=== PATIENT | female | born 1935 | race Asian ===

== ENCOUNTER 2017-04-22 11:22 | Observation (INO) | payer MEDICAID ==
[2017-04-22] MEDS ORDERED: Sodium Bicarbonate 8.4% 50 MEQ/50 ML Syringe IVPUSH ONE (11:36)
[2017-04-22] MEDS ORDERED: 50% Dextrose in Water 50 ML Syringe IVPUSH ONE ×2 (11:36→17:40)
[2017-04-22] MEDS ORDERED: Calcium Gluconate 10% 1 GM/10 ML SDV IVPUSH ONE (11:36)
[2017-04-22] MEDS ORDERED: Insulin Regular, Human 100 Units/ML 10 ML Vial IVPUSH ONE ×2 (11:39→17:40)
--- NOTE | 2017-04-22 11:45 | EDM.PDOC ---
ED HPI GENERAL MEDICAL PROBLEM - General Chief Complaint: Chest Pain Stated Complaint: FAST HEART RATE/HIGH BLOOD PRESSURE Time Seen by Provider: 04/22/17 11:29 - History of Present Illness INITIAL COMMENTS - FREE TEXT/NARRATIVE: HISTORY AND PHYSICAL: History of present illness: Patient is an 81-year-old female history hypertension [id number] diabetes who was sent by her primary medical doctor for potassium of 6.1 she was reportedly there for routine evaluation there is some communication issue as relates to patient speaking only Mandarin her daughter is here and her Luxembourgish is also limited we have attempted using it senior analyst with some difficulty and the patient basically being awake but nonverbal. Review of systems: As per history of present illness and below otherwise all systems reviewed and negative. Past medical history: As per history of present illness and as reviewed below otherwise noncontributory. Surgical history: As per history of present illness and as reviewed below otherwise noncontributory. Social history: No reported history of drug or alcohol abuse. Family history: As per history of present illness and as reviewed below otherwise noncontributory. Physical exam: HEENT: Atraumatic, normocephalic, pupils reactive, negative for conjunctival pallor or scleral icterus, mucous membranes moist, throat clear, neck supple, nontender, trachea midline. Lungs: Clear to auscultation, breath sounds equal bilaterally, chest nontender. Heart: S1S2, regular, negative for clicks, rubs, or JVD. Abdomen: Soft, nondistended, nontender. Negative for masses or hepatosplenomegaly. Negative for costovertebral tenderness. Pelvis: Stable nontender. Genitourinary: Deferred. Rectal: Deferred. Extremities: Atraumatic, negative for cords or calf pain. Neurovascular unremarkable. Neuro: Awake, moves all extremities extremely limited exam no gross focal findings Diagnostics: CBC CMP PT/INR UA CT brain EKG chest x-ray ammonia Therapeutics: Saline at 125 an hour 1 amp calcium gluconate 1 amp sodium bicarbonate one amp D50 and 10 units regular insulin Impression: #1 renal sufficiency #2 hyperkalemia #3 rule out altered mental status #4 history of hypertension #5 history non-insulin dependent diabetes Definitive disposition and diagnosis as appropriate pending reevaluation and review of above. - Related Data Allergies Allergy/AdvReac Type Severity Reaction Status Date / Time No Known Allergies Allergy Verified 11/14/15 23:01 Home Meds: Home Meds Famotidine 20 mg PO DAILY 11/14/15 [History] Furosemide 10 mg PO ASDIRECTED PRN 11/14/15 [History] Gabapentin [Neurontin] 300 mg PO BEDTIME 11/14/15 [History] Insulin Glargine,Hum.Rec.Anlog [Lantus Solostar] 35 unit SQ DAILY 11/14/15 [ History] Insulin Lispro [Humalog] 10 units SUBCUT TIDMEALS 11/14/15 [History] Lisinopril 10 mg PO DAILY 11/14/15 [History] SitaGLIPtin [Januvia] 50 mg PO DAILY 11/14/15 [History] amLODIPine [Norvasc] 10 mg PO DAILY 11/14/15 [History] atorvaSTATin [Lipitor] 20 mg PO BEDTIME 11/14/15 [History] Past Medical History Cardiovascular History: Reports: High Cholesterol, Hypertension Genitourinary History: Reports: Other (See Below) Other Genitourinary History: "kidney problems" 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 ED EXAM, GENERAL - Physical Exam Exam: See Below (See dictation) Course - Vital Signs Last Recorded V/S: Last Vital Signs Temp 37.4 C 04/22/17 11:38 Pulse 89 04/22/17 11:38 Resp 18 04/22/17 11:38 BP 158/68 H 04/22/17 11:38 Pulse Ox 99 04/22/17 11:38 - Orders/Labs/Meds Orders: Active Orders 24 hr Category Date Time Status Patient Status [ADT] Routine ADT 04/22/17 12:30 Active Accu Check [Blood Glucose Check, Bedside] [RC] TIDAC Care 04/22/17 12:27 Active Antiembolic Devices [RC] PER UNIT ROUTINE Care 04/22/17 12:31 Active Cardiac Monitoring [RC] . DIRECTED Care 04/22/17 12:37 Active EKG Documentation Completion [RC] STAT Care 04/22/17 11:40 Active Insert [place] Catheter [Insert Urinary Catheter] [OM.PC] Care 04/22/17 11:45 Ordered Q24H Intake and Output [RC] QSHIFT Care 04/22/17 12:30 Active Oxygen Therapy [RC] PRN Care 04/22/17 12:30 Active Up With Assistance [RC] ASDIRECTED Care 04/22/17 12:29 Active Urinary Catheter Assessment [RC] ASDIRECTED Care 04/22/17 11:41 Active VTE/DVT Education [RC] PER UNIT ROUTINE Care 04/22/17 12:30 Active Vital Signs [RC] Q4H Care 04/22/17 12:30 Active [place] [employer] Diet [DIET] Diet 04/22/17 Dinner Active Chest 1V Frontal [CR] Stat Exams 04/22/17 11:42 Ordered Head wo Cont [CT] Stat Exams 04/22/17 11:42 Ordered BASIC METABOLIC PANEL,BMP [CHEM] AM Lab 04/23/17 05:11 Ordered BASIC METABOLIC PANEL,BMP [CHEM] Routine Lab 04/22/17 16:00 Ordered UA W/MICROSCOPIC [URIN] Stat Lab 04/22/17 11:40 Uncollected Furosemide [Lasix] Med 04/22/17 12:39 Active 10 mg PO DAILY PRN Insulin Glarg,Human.Rec.Analog [LantUS Solostar] Med 04/23/17 09:00 Active 35 units SUBCUT DAILY Ondansetron [Zofran] Med 04/22/17 12:29 Active 4 mg IVPUSH Q4H PRN Sodium Chloride 0.9% [Normal Saline] 1,000 ml Med 04/22/17 11:51 Active IV STAT amLODIPine Med 04/23/17 09:00 Active 10 mg PO DAILY atorvaSTATin [Lipitor] Med 04/22/17 21:00 Active 20 mg PO BEDTIME Sequential Compression Device [OM.PC] Per Unit Routine Oth 04/22/17 12:30 Ordered Medication Orders Atorvastatin Calcium (Lipitor) 20 mg PO BEDTIME ZION Furosemide (Lasix) 10 mg PO DAILY PRN PRN Reason: Edema Sodium Chloride (Normal Saline) 1,000 mls @ 125 mls/hr IV STAT ONE Stop: 04/22/17 19:50 Last Admin: 04/22/17 11:52 Dose: 125 mls/hr Insulin Glargine (Lantus Solostar) 35 units SUBCUT DAILY ZION Non-Formulary Medication (Amlodipine) 10 mg PO DAILY ZION Ondansetron HCl (Zofran) 4 mg IVPUSH Q4H PRN PRN Reason: Nausea Labs: Laboratory Tests 04/22/17 04/22/17 04/22/17 Range/Units 11:42 11:42 11:42 WBC 8.13 (4.0-11.0) K/uL RBC 3.21 L (4.30-5.90) M/uL Hgb 10.4 L (12.0-16.0) g/dL Hct 31.1 L (36.0-46.0) % MCV 96.9 (80.0-98.0) fL MCH 32.4 H (27.0-32.0) pg MCHC 33.4 (31.0-37.0) g/dL RDW Std Deviation 45.8 (28.0-62.0) fl RDW Coeff of Dipti 13 (11.0-15.0) % Plt Count 185 (150-400) K/uL MPV 9.60 (7.40-12.00) fL Neut % (Auto) 68.4 (48.0-80.0) % Lymph % (Auto) 21.4 (16.0-40.0) % [place] % (Auto) 7.6 (0.0-15.0) % Eos % (Auto) 2.1 (0.0-7.0) % Baso % (Auto) 0.5 (0.0-1.5) % Neut # (Auto) 5.6 (1.4-5.7) K/uL Lymph # (Auto) 1.7 (0.6-2.4) K/uL [place] # (Auto) 0.6 (0.0-0.8) K/uL Eos # (Auto) 0.2 (0.0-0.7) K/uL Baso # (Auto) 0.0 (0.0-0.1) K/uL Nucleated RBC % 0.0 /100WBC Nucleated RBCs # 0 K/uL INR 0.98 Sodium 137 (136-146) mmol/L Potassium 5.6 H (3.5-5.1) mmol/L Chloride 110 (98-110) mmol/L Carbon Dioxide 17 L (21-31) mmol/L BUN 49 H (6.0-23.0) mg/dL Creatinine 2.0 H (0.6-1.5) mg/dL Est Cr Clr Drug Dosing TNP Estimated GFR (MDRD) 23.9 ml/min Glucose 42 L (60-110) mg/dL POC Glucose (60-110) mg/dL Calcium 9.2 (8.8-10.8) mg/dL Total Bilirubin 0.2 (0.1-1.5) mg/dL AST 16 (5-40) IU/L ALT 14 (8-54) IU/L Alkaline Phosphatase 81 (40-150) Ammonia (14-68) UG/DL Total Protein 7.1 (6.0-8.0) g/dL Albumin 4.0 (3.4-4.8) g/dL Globulin 3.1 (2.0-3.5) g/dL Albumin/Globulin Ratio 1.3 (1.3-2.8) TSH 3rd Generation 0.92 (0.47-5.0) uIU/mL Prolactin 12 (0-27) ng/mL 04/22/17 04/22/17 Range/Units 11:42 12:11 WBC (4.0-11.0) K/uL RBC (4.30-5.90) M/uL Hgb (12.0-16.0) g/dL Hct (36.0-46.0) % MCV (80.0-98.0) fL MCH (27.0-32.0) pg MCHC (31.0-37.0) g/dL RDW Std Deviation (28.0-62.0) fl RDW Coeff of Dipti (11.0-15.0) % Plt Count (150-400) K/uL MPV (7.40-12.00) fL Neut % (Auto) (48.0-80.0) % Lymph % (Auto) (16.0-40.0) % [place] % (Auto) (0.0-15.0) % Eos % (Auto) (0.0-7.0) % Baso % (Auto) (0.0-1.5) % Neut # (Auto) (1.4-5.7) K/uL Lymph # (Auto) (0.6-2.4) K/uL [place] # (Auto) (0.0-0.8) K/uL Eos # (Auto) (0.0-0.7) K/uL Baso # (Auto) (0.0-0.1) K/uL Nucleated RBC % /100WBC Nucleated RBCs # K/uL INR Sodium (136-146) mmol/L Potassium (3.5-5.1) mmol/L Chloride (98-110) mmol/L Carbon Dioxide (21-31) mmol/L BUN (6.0-23.0) mg/dL Creatinine (0.6-1.5) mg/dL Est Cr Clr Drug Dosing Estimated GFR (MDRD) ml/min Glucose (60-110) mg/dL POC Glucose 212 H (60-110) mg/dL Calcium (8.8-10.8) mg/dL Total Bilirubin (0.1-1.5) mg/dL AST (5-40) IU/L ALT (8-54) IU/L Alkaline Phosphatase (40-150) Ammonia 50 (14-68) UG/DL Total Protein (6.0-8.0) g/dL Albumin (3.4-4.8) g/dL Globulin (2.0-3.5) g/dL Albumin/Globulin Ratio (1.3-2.8) TSH 3rd Generation (0.47-5.0) uIU/mL Prolactin (0-27) ng/mL Meds: Medications Generic Name Dose Route Start Last Admin Trade Name Freq PRN Reason Stop Dose Admin Atorvastatin Calcium 20 mg 04/22/17 21:00 Lipitor PO BEDTIME ZION Furosemide 10 mg 04/22/17 12:39 Lasix PO DAILY PRN Edema Sodium Chloride 1,000 mls @ 125 mls/hr 04/22/17 11:51 04/22/17 11:52 Normal Saline IV 04/22/17 19:50 125 mls/hr STAT ONE Administration Insulin Glargine 35 units 04/23/17 09:00 Lantus Solostar SUBCUT DAILY ZION Non-Formulary Medication 10 mg 04/23/17 09:00 Amlodipine PO DAILY ZION Ondansetron HCl 4 mg 04/22/17 12:29 Zofran IVPUSH Q4H PRN Nausea Discontinued Medications Generic Name Dose Route Start Last Admin Trade Name Freq PRN Reason Stop Dose Admin Calcium Gluconate 1 gm 04/22/17 11:36 04/22/17 11:53 Calcium Gluconate IVPUSH 04/22/17 11:37 1 gm ONETIME ONE Administration Dextrose/Water 50 ml 04/22/17 11:36 04/22/17 12:00 Dextrose 50% In Water IVPUSH 04/22/17 11:37 50 ml ONETIME ONE Administration Furosemide 10 mg 04/22/17 12:26 Lasix PO ASDIRECTED PRN Edema Insulin Human Regular 10 unit 04/22/17 11:39 04/22/17 12:09 Novolin R IVPUSH 04/22/17 11:40 10 unit ONETIME ONE Administration Protocol Sodium Bicarbonate 50 meq 04/22/17 11:36 04/22/17 12:05 Sodium Bicarbonate 8.4% IVPUSH 04/22/17 11:37 50 meq ONETIME ONE Administration Departure - Departure Time of Disposition: 12:55 Disposition: Refer to Observation Condition: Good Clinical Impression: Hyperkalemia, Renal insufficiency - Discharge Information Referrals: Elizabeth Soto DO [Primary Care Provider] - Forms: ED Department Discharge - My Orders Last 24 Hours: My Active Orders 04/22/17 11:40 EKG Documentation Completion [RC] STAT UA W/MICROSCOPIC [URIN] Stat 04/22/17 11:41 Urinary Catheter Assessment [RC] ASDIRECTED 04/22/17 11:42 Chest 1V Frontal [CR] Stat Head wo Cont [CT] Stat 04/22/17 11:45 Insert Palacios Catheter [Insert Urinary Catheter] [OM.PC] Q24H 04/22/17 11:51 Sodium Chloride 0.9% [Normal Saline] 1,000 ml IV STAT - Assessment/Plan Last 24 Hours: My Active Orders 04/22/17 11:40 EKG Documentation Completion [RC] STAT UA W/MICROSCOPIC [URIN] Stat 04/22/17 11:41 Urinary Catheter Assessment [RC] ASDIRECTED 04/22/17 11:42 Chest 1V Frontal [CR] Stat Head wo Cont [CT] Stat 04/22/17 11:45 Insert [place] Catheter [Insert Urinary Catheter] [OM.PC] Q24H 04/22/17 11:51 Sodium Chloride 0.9% [Normal Saline] 1,000 ml IV STAT
[2017-04-22] MEDS ORDERED: Sodium Chloride 0.9% 1,000 ML IV ONE (11:51)
[2017-04-22 12:14] LABS: CHLORIDE,CL 110 mmol/L (98-110); SODIUM,NA 137 mmol/L (136-146)
[2017-04-22] MEDS ORDERED: Furosemide 20 MG Tab PO PRN ×2 (12:26→12:39)
[2017-04-22] MEDS ORDERED: Ondansetron 4 MG/2 ML SDV IVPUSH PRN (12:29)
--- NOTE | 2017-04-22 12:38 | PCM.HP ---
H&P History of Present Illness - General Admit Problem/Dx: Admission Diagnosis/Problem Admission Diagnosis/Problem Hyperkalemia - History of Present Illness Initial Comments - Free Text/Narative: 81 yo female with pmh of diabetes, HTN, and chronic kidney disease who presents from Dr. [facility] to the ED due to a potassium of 6.0. She only speaks Mandarin. Through the rehabilitation team lead she has no complaint's she denies any shortness of breath, dysuria, chest pain, diarrhea, fevers, or pain. She reports she is making urine. Repeat potassium in the ED reported a potasium of 5.6 She received an amp of D50 and 10 units of IV insulin in the ED. She is in aggreement for observing overnight. - Related Data Allergies/Adverse Reactions: Allergies Allergy/AdvReac Type Severity Reaction Status Date / Time No Known Allergies Allergy Verified 11/14/15 23:01 Home Medications: Home Meds Famotidine 20 mg PO DAILY 11/14/15 [History] Furosemide 10 mg PO ASDIRECTED PRN 11/14/15 [History] Gabapentin [Neurontin] 300 mg PO BEDTIME 11/14/15 [History] Insulin Glargine,Hum.Rec.Anlog [Lantus Solostar] 32 unit SQ DAILY 11/14/15 [ History] Insulin Lispro [Humalog] 10 units SUBCUT TIDMEALS 11/14/15 [History] Lisinopril 10 mg PO DAILY 11/14/15 [History] SitaGLIPtin [Januvia] 50 mg PO DAILY 11/14/15 [History] amLODIPine [Norvasc] 10 mg PO DAILY 11/14/15 [History] atorvaSTATin [Lipitor] 20 mg PO BEDTIME 11/14/15 [History] Past Medical History HEENT History: Reports: Other (See Below) Other HEENT History: unable to obtain Cardiovascular History: Reports: High Cholesterol, Hypertension Respiratory History: Reports: Other (See Below) Other Respiratory History: unable to obtain Gastrointestinal History: Reports: Other (See Below) Other Gastrointestinal History: unable to obtain Genitourinary History: Reports: Other (See Below) Other Genitourinary History: "kidney problems" 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: Musculoskeletal History: Reports: Other (See Below) Other Musculoskeletal History: unable to obtain Neurological History: Reports: Other (See Below) Other Neuro History: unable to obtain Psychiatric History: Reports: Other (See Below) Other Psychiatric History: unable to obtain Endocrine/Metabolic History: Reports: Other (See Below) Other Endocrine/Metabolic History: diabets, unsure what type Hematologic History: Reports: Other (See Below) Other Hematologic History: unable to obtain Immunologic History: Reports: Other (See Below) Other Immunologic History: unable to obtain Oncologic (Cancer) History: Reports: Other (See Below) Other Oncologic History: unable to obtain Dermatologic History: Reports: Other (See Below) Other Dermatologic History: unable to obtain - Infectious Disease History Infectious Disease History: Reports: Other (See Below) Other Infectious Disease History: unable to obtain - Past Surgical History Head Surgeries/Procedures: Reports: Other (See Below) HEENT Surgical History: Reports: Other (See Below) Other HEENT Surgeries/Procedures: unable to obtain Cardiovascular Surgical History: Reports: Other (See Below) Other Cardiovascular Surgeries/Procedures: unable to obtain Respiratory Surgical History: Reports: Other (See Below) Other Respiratory Surgeries/Procedures: unable to obtain GI Surgical History: Reports: Other (See Below) Other GI Surgeries/Procedures: unable to obtain Female Surgical History: Reports: Other (See Below) Other Female Surgeries/Procedures: unable to obtain Neurological Surgical History: Reports: Other (See Below) Other Neurological Surgeries/Procedures: unable to obtain Musculoskeletal Surgical History: Reports: Other (See Below) Other Musculoskeletal Surgeries/Procedures:: unable to obtain Oncologic Surgical History: Reports: Other (See Below) Other Oncologic Surgeries/Procedures: unable to obtain Dermatological Surgical History: Reports: Other (See Below) Social & Family History - Family History Family Medical History: Unobtainable - Tobacco Use Smoking Status *Q: Never Smoker - Caffeine Use Caffeine Use Comment: unable to obtain - Recreational Drug Use Recreational Drug Use: No Other Recreational Drug Type: unable to obtain H&P Review of Systems - Review of Systems: Review Of Systems: ROS reveals no pertinent complaints other than HPI. Exam - Exam Exam: See Below - Vital Signs Vital Signs: Last Vital Signs Temp 37.4 C 04/22/17 11:38 Pulse 89 04/22/17 11:38 Resp 18 04/22/17 11:38 BP 158/68 H 04/22/17 11:38 Pulse Ox 99 04/22/17 11:38 Weight: 68.3 kg - Exam General: Cooperative. No: Mild Distress HEENT: Mucosa Moist & [place] Neck: Supple Lungs: Clear to Auscultation, Normal Respiratory Effort Cardiovascular: Regular Rate, Regular Rhythm GI/Abdominal Exam: Soft, Non-Tender Extremities: No: No Pedal Edema Skin: Warm, Dry, Intact - Patient Data Lab Results Last 24 hrs: Laboratory Results - last 24 hr 04/22/17 04/22/17 04/22/17 Range/Units 11:42 11:42 11:42 WBC 8.13 (4.0-11.0) K/uL RBC 3.21 L (4.30-5.90) M/uL Hgb 10.4 L (12.0-16.0) g/dL Hct 31.1 L (36.0-46.0) % MCV 96.9 (80.0-98.0) fL MCH 32.4 H (27.0-32.0) pg MCHC 33.4 (31.0-37.0) g/dL RDW Std Deviation 45.8 (28.0-62.0) fl RDW Coeff of Dipti 13 (11.0-15.0) % Plt Count 185 (150-400) K/uL MPV 9.60 (7.40-12.00) fL Neut % (Auto) 68.4 (48.0-80.0) % Lymph % (Auto) 21.4 (16.0-40.0) % [place] % (Auto) 7.6 (0.0-15.0) % Eos % (Auto) 2.1 (0.0-7.0) % Baso % (Auto) 0.5 (0.0-1.5) % Neut # (Auto) 5.6 (1.4-5.7) K/uL Lymph # (Auto) 1.7 (0.6-2.4) K/uL [place] # (Auto) 0.6 (0.0-0.8) K/uL Eos # (Auto) 0.2 (0.0-0.7) K/uL Baso # (Auto) 0.0 (0.0-0.1) K/uL Nucleated RBC % 0.0 /100WBC Nucleated RBCs # 0 K/uL INR 0.98 Sodium 137 (136-146) mmol/L Potassium 5.6 H (3.5-5.1) mmol/L Chloride 110 (98-110) mmol/L Carbon Dioxide 17 L (21-31) mmol/L BUN 49 H (6.0-23.0) mg/dL Creatinine 2.0 H (0.6-1.5) mg/dL Est Cr Clr Drug Dosing TNP Estimated GFR (MDRD) 23.9 ml/min Glucose 42 L (60-110) mg/dL POC Glucose (60-110) mg/dL Calcium 9.2 (8.8-10.8) mg/dL Total Bilirubin 0.2 (0.1-1.5) mg/dL AST 16 (5-40) IU/L ALT 14 (8-54) IU/L Alkaline Phosphatase 81 (40-150) Ammonia (14-68) UG/DL Total Protein 7.1 (6.0-8.0) g/dL Albumin 4.0 (3.4-4.8) g/dL Globulin 3.1 (2.0-3.5) g/dL Albumin/Globulin Ratio 1.3 (1.3-2.8) 04/22/17 04/22/17 Range/Units 11:42 12:11 WBC (4.0-11.0) K/uL RBC (4.30-5.90) M/uL Hgb (12.0-16.0) g/dL Hct (36.0-46.0) % MCV (80.0-98.0) fL MCH (27.0-32.0) pg MCHC (31.0-37.0) g/dL RDW Std Deviation (28.0-62.0) fl RDW Coeff of Dipti (11.0-15.0) % Plt Count (150-400) K/uL MPV (7.40-12.00) fL Neut % (Auto) (48.0-80.0) % Lymph % (Auto) (16.0-40.0) % [place] % (Auto) (0.0-15.0) % Eos % (Auto) (0.0-7.0) % Baso % (Auto) (0.0-1.5) % Neut # (Auto) (1.4-5.7) K/uL Lymph # (Auto) (0.6-2.4) K/uL [place] # (Auto) (0.0-0.8) K/uL Eos # (Auto) (0.0-0.7) K/uL Baso # (Auto) (0.0-0.1) K/uL Nucleated RBC % /100WBC Nucleated RBCs # K/uL INR Sodium (136-146) mmol/L Potassium (3.5-5.1) mmol/L Chloride (98-110) mmol/L Carbon Dioxide (21-31) mmol/L BUN (6.0-23.0) mg/dL Creatinine (0.6-1.5) mg/dL Est Cr Clr Drug Dosing Estimated GFR (MDRD) ml/min Glucose (60-110) mg/dL POC Glucose 212 H (60-110) mg/dL Calcium (8.8-10.8) mg/dL Total Bilirubin (0.1-1.5) mg/dL AST (5-40) IU/L ALT (8-54) IU/L Alkaline Phosphatase (40-150) Ammonia 50 (14-68) UG/DL Total Protein (6.0-8.0) g/dL Albumin (3.4-4.8) g/dL Globulin (2.0-3.5) g/dL Albumin/Globulin Ratio (1.3-2.8) Result Diagrams: 04/22/17 11:42 04/22/17 16:27 *Q Meaningful Use (ADM) - VTE *Q VTE Criteria *Q: - Stroke *Q Stroke Criteria *Q: - AMI *Q AMI Criteria *Q: Problem List Initiated/Reviewed/Updated: Yes Orders Last 24hrs: Active Orders 24 hr Category Date Time Status Patient Status [ADT] Routine ADT 04/22/17 12:30 Ordered Accu Check [Blood Glucose Check, Bedside] [RC] TIDAC Care 04/22/17 12:27 Ordered Antiembolic Devices [RC] PER UNIT ROUTINE Care 04/22/17 12:31 Ordered EKG Documentation Completion [RC] STAT Care 04/22/17 11:40 Active Insert [place] Catheter [Insert Urinary Catheter] [OM.PC] Care 04/22/17 11:45 Ordered Q24H Intake and Output [RC] QSHIFT Care 04/22/17 12:30 Ordered Oxygen Therapy [RC] PRN Care 04/22/17 12:30 Ordered Up With Assistance [RC] ASDIRECTED Care 04/22/17 12:29 Ordered Urinary Catheter Assessment [RC] ASDIRECTED Care 04/22/17 11:41 Active VTE/DVT Education [RC] PER UNIT ROUTINE Care 04/22/17 12:30 Ordered Vital Signs [RC] Q4H Care 04/22/17 12:30 Ordered [place] [employer]abetic [employer] Diet [DIET] Diet 04/22/17 Dinner Ordered Chest 1V Frontal [CR] Stat Exams 04/22/17 11:42 Ordered Head wo Cont [CT] Stat Exams 04/22/17 11:42 Ordered BASIC METABOLIC PANEL,BMP [CHEM] AM Lab 04/23/17 05:11 Ordered BASIC METABOLIC PANEL,BMP [CHEM] Routine Lab 04/22/17 16:00 Ordered COMPREHENSIVE METABOLIC PN,CMP [CHEM] Stat Lab 04/22/17 11:42 Results PROLACTIN [CHEM] Stat Lab 04/22/17 11:42 Results TSH [CHEM] Stat Lab 04/22/17 11:42 Results UA W/MICROSCOPIC [URIN] Stat Lab 04/22/17 11:40 Uncollected Furosemide [Lasix] Med 04/22/17 12:26 Ordered 10 mg PO ASDIRECTED PRN Insulin Glarg,Human.Rec.Analog [LantUS Solostar] Med 04/23/17 09:00 Ordered 35 units SUBCUT DAILY Ondansetron [Zofran] Med 04/22/17 12:29 Ordered 4 mg IVPUSH Q4H PRN Sodium Chloride 0.9% [Normal Saline] 1,000 ml Med 04/22/17 11:51 Active IV STAT amLODIPine Med 04/23/17 09:00 Ordered 10 mg PO DAILY atorvaSTATin [Lipitor] Med 04/22/17 21:00 Ordered 20 mg PO BEDTIME Sequential Compression Device [OM.PC] Per Unit Routine Oth 04/22/17 12:30 Ordered Medication Orders Atorvastatin Calcium (Lipitor) 20 mg PO BEDTIME ZION Furosemide (Lasix) 10 mg PO ASDIRECTED PRN PRN Reason: Edema Sodium Chloride (Normal Saline) 1,000 mls @ 125 mls/hr IV STAT ONE Stop: 04/22/17 19:50 Last Admin: 04/22/17 11:52 Dose: 125 mls/hr Insulin Glargine (Lantus Solostar) 35 units SUBCUT DAILY ZION Non-Formulary Medication (Amlodipine) 10 mg PO DAILY ZION Ondansetron HCl (Zofran) 4 mg IVPUSH Q4H PRN PRN Reason: Nausea Assessment/Plan Comment:: 81 yo female with pmh of CKD, DM, and HTN who presents with hyperkalemia. She was treated in the ED with insulin. We will monitor overnight and repeat BMP this afternoon. We will hold her lisinopril. Creatinine appears stable at 2.0 with prior creatinine measurement last october at 2.4.
--- NOTE | 2017-04-22 13:27 | CR ---
EXAMINATION: Portable chest radiograph. HISTORY: Shortness of breath. COMPARISON: 08/07/2012 FINDINGS: The trachea is midline. The cardiomediastinal silhouette is within normal limits. No pulmonary infilt rates, effusions or pneumothorax. Mild chronic interstitial prominence. Degenerative changes noted within the shoulders. IMPRESSION: Chronic interstitial prominence without an acute cardiopulmonary finding.
--- NOTE | 2017-04-22 13:37 | CT ---
EXAMINATION: Non contrast CT head. Coronal and sagittal reformats. HISTORY: Pain FINDINGS: No evidence of intra or extra axial hemorrhage, mass, midline shift, hydrocephalus or edema. Mild ge neralized atrophy and periventricular white matter hypodensities noted. No hypoattenuation changes in the major vascular territories to suggest acute infarct. No abnormal intracranial calcifications are detected. No evidence of substantial vascular calcificat ions. Paranasal sinuses and mastoid air cells are well aerated without substantial findings. The right orbi t has an oval shape, unchanged. The pituitary fossa appears unremarkable. Calvarium is intact. No evidence of skull fracture. IMPRESSION: 1. No acute intracranial findings. 2. Mild generalized atrophy and small vessel ischemic changes.
[2017-04-22 17:03] LABS: CHLORIDE,CL 113 mmol/L (98-110); SODIUM,NA 137 mmol/L (136-146)
[2017-04-22] MEDS ORDERED: atorvaSTATin 20 MG Tab PO SCH (21:00)
[2017-04-22] MEDS: Sodium Chloride 0.9% 1,000 ML IV SCH (21:20)
[2017-04-23] MEDS: Sodium Chloride 0.9% 1,000 ML IV SCH (04:55)
[2017-04-23] MEDS ORDERED: Insulin Glargine,Human Rec. Analog 100 Units/ML 3 ML Pen SUBCUT SCH (09:00)
[2017-04-23] MEDS ORDERED: amLODIPine 5 MG Tab PO SCH (09:00)
[2017-04-23 13:50] VITALS: BP 121/72
--- NOTE | 2017-04-23 16:11 | PCM.DCSUM1 ---
Discharge Summary - Hospital Course Free Text/Narrative:: Admission date: April 22, 2017 Discharge date April 23, 2017 Admission diagnosis: #1. Hyperkalemia #2. History of hypertension, CKD, type 2 diabetes mellitus #3. Altered mental status Discharge diagnosis: #1. Hyperkalemia resolved #2. History of hypertension, CKD, T2 DM Hospital course: This is a 81-year-old female that was sent over from outpatient clinic after found to have a incidental level of potassium apparently as high as 6. Recheck in the emergency department showed a level of 5.6. Patient is asymptomatic. She was admitted for observation, given fluid and her lisinopril was discontinued. Recheck prior to discharge indicated a potassium level of 4.8. Patient remained asymptomatic throughout her stay. There were concerns for altered mental status in the emergency department which was likely secondary to her inability to speak Kosovan. However, CT scan of her head was obtained and that was unremarkable. She is able to compensate with the curb worker was used in the hospital. With the conversation that she is having at the curb worker, it does appear that her mental status is preserved. It would be helpful in the future though if we could get a full conversation with family as well. There is a possibility that the potassium level may have been secondary to the sample being hemolyzed. However, given her history of chronic kidney disease, a close eye on her kidney function along with potassium levels is indicated. She should follow up with her primary care provider within one week. - Discharge Data Discharge Date: 04/23/17 Discharge Disposition: Home, Self-Care 01 Condition: Fair - Patient Instructions Diet: Diabetic Diet Activity: As Tolerated Notify Provider of: Fever, Increased Pain, Swelling and Redness, Drainage, Nausea and/or Vomiting - Discharge Plan Home Medications: Home Meds Famotidine 20 mg PO DAILY 11/14/15 [History] Furosemide 10 mg PO ASDIRECTED PRN 11/14/15 [History] Gabapentin [Neurontin] 300 mg PO BEDTIME 11/14/15 [History] Insulin Glargine,Hum.Rec.Anlog [Lantus Solostar] 32 unit SQ DAILY 11/14/15 [ History] Insulin Lispro [Humalog] 10 units SUBCUT TIDMEALS 11/14/15 [History] SitaGLIPtin [Januvia] 50 mg PO DAILY 11/14/15 [History] amLODIPine [Norvasc] 10 mg PO DAILY 11/14/15 [History] atorvaSTATin [Lipitor] 20 mg PO BEDTIME 11/14/15 [History] Patient Handouts: Hyperkalemia, [id number] Referrals: Elizabeth Soto DO [Primary Care Provider] - 04/30/17 12:30 pm - Discharge Summary/Plan Comment Discharge Summary/Plan Comment: Admission date: April 22, 2017 Discharge date April 23, 2017 Admission diagnosis: #1. Hyperkalemia #2. History of hypertension, CKD, type 2 diabetes mellitus #3. Altered mental status Discharge diagnosis: #1. Hyperkalemia resolved #2. History of hypertension, CKD, T2 DM Hospital course: This is a 81-year-old female that was sent over from outpatient clinic after found to have a incidental level of potassium apparently as high as 6. Recheck in the emergency department showed a level of 5.6. Patient is asymptomatic. She was admitted for observation, given fluid and her lisinopril was discontinued. Recheck prior to discharge indicated a potassium level of 4.8. Patient remained asymptomatic throughout her stay. There were concerns for altered mental status in the emergency department which was likely secondary to her inability to speak Kosovan. However, CT scan of her head was obtained and that was unremarkable. She is able to compensate with the curb worker was used in the hospital. With the conversation that she is having at the curb worker, it does appear that her mental status is preserved. It would be helpful in the future though if we could get a full conversation with family as well. There is a possibility that the potassium level may have been secondary to the sample being hemolyzed. However, given her history of chronic kidney disease, a close eye on her kidney function along with potassium levels is indicated. She should follow up with her primary care provider within one week. Lisinopril is discontinued. - Patient Data Vitals - Most Recent: Last Vital Signs Temp 36.7 C 04/23/17 12:00 Pulse 99 04/23/17 12:00 Resp 20 04/23/17 12:00 BP 121/72 04/23/17 12:00 Pulse Ox 97 04/23/17 12:00 Weight - Most Recent: 68.3 kg I&O - Last 24 hours: Intake & Output 04/23/17 04/23/1718 06:59 14:59 22:59 Intake Total 1275 769 Output Total 1100 Balance 175 769 Lab Results - Last 24 hrs: Laboratory Results - last 24 hr 04/22/17 04/22/17 04/22/17 Range/Units 16:27 17:06 18:45 Sodium 137 (136-146) mmol/L Potassium 5.8 H (3.5-5.1) mmol/L Chloride 113 H (98-110) mmol/L Carbon Dioxide 15 L (21-31) mmol/L BUN 45 H (6.0-23.0) mg/dL Creatinine 1.9 H (0.6-1.5) mg/dL Est Cr Clr Drug Dosing TNP Estimated GFR (MDRD) 25.3 ml/min Glucose 167 H (60-110) mg/dL POC Glucose 188 H 367 H (60-110) mg/dL Calcium 8.8 (8.8-10.8) mg/dL 04/22/17 04/23/17 04/23/17 Range/Units 21:12 04:48 11:43 Sodium 140 142 (136-146) mmol/L Potassium 5.2 H 5.0 4.8 (3.5-5.1) mmol/L Chloride 113 H 116 H (98-110) mmol/L Carbon Dioxide 18 L 20 L (21-31) mmol/L BUN 45 H 38 H (6.0-23.0) mg/dL Creatinine 2.0 H 1.7 H (0.6-1.5) mg/dL Est Cr Clr Drug Dosing 18.86 22.19 Estimated GFR (MDRD) 23.9 28.8 ml/min Glucose 326 H 178 H (60-110) mg/dL POC Glucose (60-110) mg/dL Calcium 8.5 L 8.5 L (8.8-10.8) mg/dL 04/23/17 Range/Units 12:33 Sodium (136-146) mmol/L Potassium (3.5-5.1) mmol/L Chloride (98-110) mmol/L Carbon Dioxide (21-31) mmol/L BUN (6.0-23.0) mg/dL Creatinine (0.6-1.5) mg/dL Est Cr Clr Drug Dosing Estimated GFR (MDRD) ml/min Glucose (60-110) mg/dL POC Glucose 303 H (60-110) mg/dL Calcium (8.8-10.8) mg/dL Med Orders - Current: Current Medications Amlodipine Besylate (Norvasc) 10 mg PO DAILY [facility] Last Admin: 04/23/17 08:34 Dose: 10 mg Atorvastatin Calcium (Lipitor) 20 mg PO BEDTIME [facility] Last Admin: 04/22/17 20:27 Dose: 20 mg Furosemide (Lasix) 10 mg PO DAILY PRN PRN Reason: Edema Insulin Glargine (Lantus Solostar) 35 units SUBCUT DAILY [facility] Last Admin: 04/23/17 08:40 Dose: 35 units Ondansetron HCl (Zofran) 4 mg IVPUSH Q4H PRN PRN Reason: Nausea Discontinued Medications Calcium Gluconate (Calcium Gluconate) 1 gm IVPUSH ONETIME ONE Stop: 04/22/17 11:37 Last Admin: 04/22/17 11:53 Dose: 1 gm Dextrose/Water (Dextrose 50% In Water) 50 ml IVPUSH ONETIME ONE Stop: 04/22/17 11:37 Last Admin: 04/22/17 12:00 Dose: 50 ml Dextrose/Water (Dextrose 50% In Water) 50 ml IVPUSH ONETIME ONE Stop: 04/22/17 17:41 Last Admin: 04/22/17 18:11 Dose: 50 ml Furosemide (Lasix) 10 mg PO ASDIRECTED PRN PRN Reason: Edema Sodium Chloride (Normal Saline) 1,000 mls @ 125 mls/hr IV STAT ONE Stop: 04/22/17 19:50 Last Admin: 04/22/17 11:52 Dose: 125 mls/hr Sodium Chloride (Normal Saline) 1,000 mls @ 125 mls/hr IV ASDIRECTED [facility] Last Admin: 04/23/17 04:55 Dose: 125 mls/hr Insulin Human Regular (Novolin R) 10 unit IVPUSH ONETIME ONE PRN Reason: Protocol Stop: 04/22/17 11:40 Last Admin: 04/22/17 12:09 Dose: 10 unit Insulin Human Regular (Novolin R) 10 unit IVPUSH ONETIME ONE PRN Reason: Protocol Stop: 04/22/17 17:41 Last Admin: 04/22/17 18:11 Dose: 10 units Sodium Bicarbonate (Sodium Bicarbonate 8.4%) 50 meq IVPUSH ONETIME ONE Stop: 04/22/17 11:37 Last Admin: 04/22/17 12:05 Dose: 50 meq *Q Meaningful Use (DIS) - VTE *Q VTE Criteria *Q: - Stroke *Q Stroke Criteria *Q: - AMI *Q AMI Criteria *Q:
== END 2017-04-23 16:05 | disposition home or self-care (01) ==
LOC: MW.ED 11:22 → MW.MS 13:02
PROVIDERS: ADMIT Internal Medicine; ATTEND Internal Medicine
DX: E87.5 Hyperkalemia (principal); I12.9 Hypertensive chronic kidney disease with stage 1 through stage 4 chronic kidney disease, or unspecified chronic kidney disease; N18.9 Chronic kidney disease, unspecified; E11.22 Type 2 diabetes mellitus with diabetic chronic kidney disease; R41.82 Altered mental status, unspecified; E78.00 Pure hypercholesterolemia, unspecified; Z79.899 Other long term (current) drug therapy; Z79.4 Long term (current) use of insulin
CPT/HCPCS: 36415; 70450; 71045; 80048; 80053; 81001; 82140; 82962; 84132; 84146; 84443; 85025; 85610; 93005; 96361; 96374; 96375; 99285; A9270; J0610; J1815; J7040; J7060

== ENCOUNTER 2018-05-11 14:28 | Inpatient (IN) | payer MEDICAID ==
[2018-05-11] MEDS ORDERED: Sodium Chloride 0.9% 2.5 ML Syringe FLUSH PRN ×2 (14:32→18:15)
[2018-05-11] MEDS ORDERED: Sodium Chloride 0.9% 10 ML Syringe FLUSH PRN ×2 (14:32→18:15)
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
[2018-05-11] MEDS: Sodium Chloride 0.9% 1,000 ML IV ONE ×2 (15:10→15:15)
--- NOTE | 2018-05-11 16:24 | CR ---
EXAMINATION: Portable chest radiograph. HISTORY: Shortness of breath. FINDINGS: The trachea is midline. The cardiomediastinal silhouette is within normal limits. No pulmonary infiltrates, effusions or pneumothorax. Chronic interstitial prominence most notable within the left lung base. Degenerative changes noted within the shoulders. IMPRESSION: Chronic interstitial changes without definite acute cardiopulmonary finding.
[2018-05-11] MEDS ORDERED: Enoxaparin 30 MG/0.3 ML Syringe SUBCUT SCH (18:00)
--- NOTE | 2018-05-11 18:01 | PCM.HP ---
H&P History of Present Illness - General Date of Service: 05/11/18 Admit Problem/Dx: Admission Diagnosis/Problem Admission Diagnosis/Problem Dehydration History Limitations: Reports: Language Barrier - History of Present Illness Initial Comments - Free Text/Narative: This is a 82-year-old female who is frequently admitted to our service usually secondary to dehydration due to her underlying dementia and social related issues. Today she was found on the floor by her caregiver. It was indicated that the apartment that the patient was found was filthy, the bathroom was flooded and the house smelled of urine/ammonia. Patient is unable to communicate due to language barrier as the patient only speaks and understands management however even when a fish inspector is brought forth the patient is noted to not make sense likely due to her underlying dementia issues. In the ER after laboratory evaluations was done it was noted the patient likely had failure to thrive and dehydration issues with a possibly dirty urine indicates sitting a urinary tract infection. - Related Data Allergies/Adverse Reactions: Allergies Allergy/AdvReac Type Severity Reaction Status Date / Time No Known Allergies Allergy Verified 11/14/15 23:01 Home Medications: Home Meds Famotidine 20 mg PO DAILY 11/14/15 [History] Gabapentin [Neurontin] 300 mg PO BEDTIME 11/14/15 [History] Insulin Glargine,Hum.Rec.Anlog [Lantus Solostar] 32 unit SQ DAILY 11/14/15 [ History] Insulin Lispro [Humalog] 10 units SUBCUT TIDMEALS 11/14/15 [History] SitaGLIPtin [Januvia] 50 mg PO DAILY 11/14/15 [History] amLODIPine [Norvasc] 10 mg PO DAILY 11/14/15 [History] atorvaSTATin [Lipitor] 20 mg PO BEDTIME 11/14/15 [History] Ferrous Sulfate [Iron] 325 mg PO DAILY 02/01/18 [History] LORazepam 1 mg PO BID PRN 02/01/18 [History] Lisinopril 5 mg PO DAILY 02/01/18 [History] Nateglinide 120 mg PO BID 02/01/18 [History] Omeprazole 20 mg PO BEDTIME 02/01/18 [History] Past Medical History HEENT History: Reports: Other (See Below) Other HEENT History: unable to obtain Cardiovascular History: Reports: High Cholesterol, Hypertension Respiratory History: Reports: Other (See Below) Other Respiratory History: unable to obtain Gastrointestinal History: Reports: Other (See Below) Other Gastrointestinal History: unable to obtain Genitourinary History: Reports: Other (See Below) Other Genitourinary History: "kidney problems" 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: Musculoskeletal History: Reports: Other (See Below) Other Musculoskeletal History: unable to obtain Neurological History: Reports: Other (See Below) Other Neuro History: unable to obtain Psychiatric History: Reports: Other (See Below) Other Psychiatric History: unable to obtain Endocrine/Metabolic History: Reports: Other (See Below) Other Endocrine/Metabolic History: diabets, unsure what type Hematologic History: Reports: Other (See Below) Other Hematologic History: unable to obtain Immunologic History: Reports: Other (See Below) Other Immunologic History: unable to obtain Oncologic (Cancer) History: Reports: Other (See Below) Other Oncologic History: unable to obtain Dermatologic History: Reports: Other (See Below) Other Dermatologic History: unable to obtain - Infectious Disease History Infectious Disease History: Reports: None Other Infectious Disease History: unable to obtain - Past Surgical History Head Surgeries/Procedures: Reports: Other (See Below) HEENT Surgical History: Reports: Other (See Below) Other HEENT Surgeries/Procedures: unable to obtain Cardiovascular Surgical History: Reports: Other (See Below) Other Cardiovascular Surgeries/Procedures: unable to obtain Respiratory Surgical History: Reports: Other (See Below) Other Respiratory Surgeries/Procedures: unable to obtain GI Surgical History: Reports: Other (See Below) Other GI Surgeries/Procedures: unable to obtain Female Surgical History: Reports: Other (See Below) Other Female Surgeries/Procedures: unable to obtain Neurological Surgical History: Reports: Other (See Below) Other Neurological Surgeries/Procedures: unable to obtain Musculoskeletal Surgical History: Reports: Other (See Below) Other Musculoskeletal Surgeries/Procedures:: unable to obtain Oncologic Surgical History: Reports: Other (See Below) Other Oncologic Surgeries/Procedures: unable to obtain Dermatological Surgical History: Reports: Other (See Below) Social & Family History - Family History Family Medical History: Unobtainable - Tobacco Use Smoking Status *Q: Unknown Ever Smoked - Caffeine Use Caffeine Use: Reports: None Caffeine Use Comment: unable to obtain H&P Review of Systems - Review of Systems: Review Of Systems: ROS reveals no pertinent complaints other than HPI. Exam - Exam Exam: See Below - Vital Signs Vital Signs: Last Vital Signs Temp 36.6 C 05/11/18 14:39 Pulse 74 05/11/18 16:00 Resp 18 05/11/18 16:00 BP 170/84 H 05/11/18 16:00 Pulse Ox 97 05/11/18 16:00 Weight: 45.359 kg - Exam General: Alert, Cooperative Lungs: Clear to Auscultation, Normal Respiratory Effort Cardiovascular: Regular Rate, Regular Rhythm GI/Abdominal Exam: Normal Bowel Sounds - Patient Data Lab Results Last 24 hrs: Laboratory Results - last 24 hr 05/11/18 05/11/18 05/11/18 Range/Units 15:05 15:37 15:37 WBC 11.03 H (4.0-11.0) K/uL RBC 4.44 (4.30-5.90) M/uL Hgb 14.1 (12.0-16.0) g/dL Hct 41.3 (36.0-46.0) % MCV 93.0 (80.0-98.0) fL MCH 31.8 (27.0-32.0) pg MCHC 34.1 (31.0-37.0) g/dL RDW Std Deviation 44.2 (28.0-62.0) fl RDW Coeff of Dipti 13 (11.0-15.0) % Plt Count 209 (150-400) K/uL MPV 9.80 (7.40-12.00) fL Neut % (Auto) 87.8 H (48.0-80.0) % Lymph % (Auto) 6.1 L (16.0-40.0) % [place] % (Auto) 6.0 (0.0-15.0) % Eos % (Auto) 0.0 (0.0-7.0) % Baso % (Auto) 0.1 (0.0-1.5) % Neut # (Auto) 9.7 H (1.4-5.7) K/uL Lymph # (Auto) 0.7 (0.6-2.4) K/uL [place] # (Auto) 0.7 (0.0-0.8) K/uL Eos # (Auto) 0.0 (0.0-0.7) K/uL Baso # (Auto) 0.0 (0.0-0.1) K/uL Nucleated RBC % 0.0 /100WBC Nucleated RBCs # 0 K/uL Sodium 141 (136-145) mmol/L Potassium 5.0 (3.5-5.1) mmol/L Chloride 102 (98-107) mmol/L Carbon Dioxide 10.3 L (21.0-32.0) mmol/L BUN 65 H (7.0-18.0) mg/dL Creatinine 2.1 H (0.6-1.0) mg/dL Est Cr Clr Drug Dosing 14.53 mL/min Estimated GFR (MDRD) 22.5 ml/min Glucose 400 H (74-106) mg/dL Calcium 10.1 (8.5-10.1) mg/dL Total Bilirubin 1.2 H (0.2-1.0) mg/dL AST 18 (15-37) IU/L ALT 24 (14-63) IU/L Alkaline Phosphatase 131 H (46-116) U/L Creatine Kinase 83 (26-308) U/L Total Protein 7.3 (6.4-8.2) g/dL Albumin 3.6 (3.4-5.0) g/dL Globulin 3.7 (2.6-4.0) g/dL Albumin/Globulin Ratio 1.0 (0.9-1.6) Urine Color YELLOW Urine Appearance CLEAR Urine pH 6.0 (5.0-8.0) Ur Specific [place] 1.025 (1.001-1.035) Urine Protein 30 H (NEGATIVE) mg/dL Urine Glucose (UA) >=1000 (NEGATIVE) mg/dL Urine Ketones 40 H (NEGATIVE) mg/dL Urine Occult Blood TRACE-INTACT H (NEGATIVE) Urine Nitrite NEGATIVE (NEGATIVE) Urine Bilirubin NEGATIVE (NEGATIVE) Urine Urobilinogen 0.2 (<2.0) EU/dL Ur Leukocyte Esterase NEGATIVE (NEGATIVE) Urine RBC 0-2 (0-2/HPF) Urine WBC 0-1 (0-5/HPF) Ur Epithelial Cells OCCASIONAL (NONE-FEW) Amorphous Sediment LIGHT (NEGATIVE) Urine Bacteria FEW (NEGATIVE) Result Diagrams: 05/11/18 15:37 05/11/18 15:37 - Problem List (1) Failure to thrive SNOMED Code(s): 59814997 ICD Code: [id number] - Status: Acute Current Visit: Yes (2) Dehydration SNOMED Code(s): 97175750 ICD Code: E86.0 - DEHYDRATION Status: Acute Current Visit: No (3) UTI, Urinary tract infectious disease SNOMED Code(s): 11084378 ICD Code: N39.0 - URINARY TRACT INFECTION, SITE NOT SPECIFIED Status: Acute Current Visit: No (4) Unable to ambulate SNOMED Code(s): 466385246 ICD Code: R26.2 - DIFFICULTY IN WALKING, NOT ELSEWHERE CLASSIFIED Status: Acute Current Visit: No (5) Dehydration SNOMED Code(s): 15897310 ICD Code: E86.0 - DEHYDRATION Status: Resolved Current Visit: No (6) Uncontrolled diabetes mellitus SNOMED Code(s): 39466241, 578723190 ICD Code: E11.65 - TYPE 2 DIABETES MELLITUS WITH HYPERGLYCEMIA Status: Acute Current Visit: No (7) Sacral decubitus ulcer SNOMED Code(s): 606716220 ICD Code: L89.159 - PRESSURE ULCER OF SACRAL REGION, UNSPECIFIED STAGE Status: Chronic Current Visit: No Qualifiers: Pressure injury stage: stage 1 Qualified Code(s): L89.151 - Pressure ulcer of sacral region, stage 1 (8) HTN (hypertension) SNOMED Code(s): 66846656 ICD Code: I10 - ESSENTIAL (PRIMARY) HYPERTENSION Status: Chronic Current Visit: No Qualifiers: Hypertension type: essential hypertension Qualified Code(s): I10 - Essential (primary) hypertension (9) DM type 2 (diabetes mellitus, type 2) SNOMED Code(s): 82148399 ICD Code: E11.9 - TYPE 2 DIABETES MELLITUS WITHOUT COMPLICATIONS Status: Chronic Current Visit: No Qualifiers: Diabetes mellitus skilled nursing insulin use: with manager terminal use Diabetes mellitus complication status: with skin complications Diabetes mellitus complication detail: with other skin ulcer Qualified Code(s): E11.622 - Type 2 diabetes mellitus with other skin ulcer; Z79.4 - terminal worker (current) use of insulin Problem List Initiated/Reviewed/Updated: Yes Orders Last 24hrs: Active Orders 24 hr Category Date Time Status Patient Status [ADT] Stat ADT 05/11/18 16:17 Active [place] Catheter Insertion [Insert Urinary Catheter] [OM. Care 05/11/18 14:50 Ordered PC] Q24H Urinary Catheter Assessment [RC] ASDIRECTED Care 05/11/18 15:21 Active CULTURE URINE [RM] Routine Lab 05/11/18 15:05 Received Sodium Chloride 0.9% [Saline Flush] Med 05/11/18 14:32 Active 10 ml FLUSH ASDIRECTED PRN Sodium Chloride 0.9% [Saline Flush] Med 05/11/18 14:32 Active 2.5 ml FLUSH ASDIRECTED PRN Saline Lock Insert [OM.PC] Stat Oth 05/11/18 14:32 Ordered Medication Orders Sodium Chloride (Saline Flush) 10 ml FLUSH ASDIRECTED PRN PRN Reason: Keep Vein Open Last Admin: 05/11/18 15:42 Dose: 10 ml Sodium Chloride (Saline Flush) 2.5 ml FLUSH ASDIRECTED PRN PRN Reason: Keep Vein Open Last Admin: 05/11/18 15:42 Dose: 2.5 ml Assessment/Plan Comment:: This is a 82-year-old female that is unable to communicate secondary to leg which barrier who is presenting due to failure to thrive, dehydration, uncontrolled type 2 diabetes with the elevated blood glucose level as well as ketones in the urine, a urine analysis indicating likely urinary tract infection. #1. Dehydration secondary to an elevation in the BUN and creatinine from baseline -Patient will be started on IV fluids and monitored via labs #2. Urinary analysis indicating a possible urinary tract infection- patient has an elevated WBC count neutrophilic in nature -Urine culture has been obtained, patient shall be started on ciprofloxacin 400 mg every 24 hours renally dosed as the patient in the past has had sensitivities done and Cipro has been shown to be sensitive for the microorganism that is typically growing in her urine #3. Hyperglycemia secondary to uncontrolled type 2 diabetes -Patient shall be started on a insulin sliding scale along with given long- acting insulin overnight, glucose shall be monitored closely #4. Failure to thrive secondary to poor living conditions -assistant guest services manager well assessed the patient in the a.m. and from a social disposition issue patient's care will need to be taken a look at it and see what can be done for this patient. Anticipated length of stay will be greater than 2 midnights. As such the patient shall be admitted under inpatient status.
[2018-05-11] MEDS ORDERED: Morphine 2 MG/ML Syringe IVPUSH PRN (18:15)
[2018-05-11] MEDS ORDERED: Ondansetron 4 MG/2 ML SDV IVPUSH PRN (18:15)
[2018-05-11] MEDS: amLODIPine 5 MG Tab PO SCH (19:41)
[2018-05-11] MEDS: Lisinopril 5 MG Tab PO SCH (19:41)
[2018-05-11] MEDS: Insulin Aspart 100 Units/ML 3 ML Pen SUBCUT SCH (19:44)
[2018-05-11] MEDS: Ciprofloxacin in D5W 400 MG in Premix Bag 1 BAG IV SCH ×2 (19:46)
[2018-05-11] MEDS: Sodium Chloride 0.9% 1,000 ML IV SCH (19:47)
[2018-05-11] MEDS ORDERED: Insulin Aspart 100 Units/ML 3 ML Pen SUBCUT ONE ×2 (21:11→23:00)
[2018-05-11] MEDS: Insulin Detemir 100 Units/ML 3 ML Pen SUBCUT SCH (21:18)
[2018-05-12] MEDS ORDERED: Insulin Aspart 100 Units/ML 3 ML Pen SUBCUT ONE ×2 (01:05→21:11)
[2018-05-12] MEDS: Sodium Chloride 0.9% 1,000 ML IV SCH ×3 (03:40→18:10)
[2018-05-12] MEDS: amLODIPine 5 MG Tab PO SCH (08:57)
[2018-05-12] MEDS: Lisinopril 5 MG Tab PO SCH (08:57)
[2018-05-12] MEDS: Insulin Aspart 100 Units/ML 3 ML Pen SUBCUT SCH ×3 (10:01→18:21)
--- NOTE | 2018-05-12 12:28 | PCM.PN ---
- General Info Date of Service: 05/12/18 Subjective Update: Patient continues to be nonverbal however is more awake and alert, currently sitting on the chair. We did have our consultant internship service try to speak to the patient and managing patient refused to answer or acknowledge any questions by the consultant internship. - Patient Data Vitals - Most Recent: Last Vital Signs Temp 36.6 C 05/12/18 08:00 Pulse 63 05/12/18 08:00 Resp 17 05/12/18 08:00 BP 120/57 L 05/12/18 08:00 Pulse Ox 98 05/12/18 08:00 Weight - Most Recent: 45.359 kg I&O - Last 24 Hours: Intake & Output 05/11/18 05/12/18 05/12/18 22:59 06:59 14:59 Intake Total 200 1845 Output Total 1300 Balance 200 545 Lab Results Last 24 Hours: Laboratory Results - last 24 hr 05/11/18 05/11/18 05/11/18 Range/Units 15:05 15:37 15:37 WBC 11.03 H (4.0-11.0) K/uL RBC 4.44 (4.30-5.90) M/uL Hgb 14.1 (12.0-16.0) g/dL Hct 41.3 (36.0-46.0) % MCV 93.0 (80.0-98.0) fL MCH 31.8 (27.0-32.0) pg MCHC 34.1 (31.0-37.0) g/dL RDW Std Deviation 44.2 (28.0-62.0) fl RDW Coeff of Dipti 13 (11.0-15.0) % Plt Count 209 (150-400) K/uL MPV 9.80 (7.40-12.00) fL Neut % (Auto) 87.8 H (48.0-80.0) % Lymph % (Auto) 6.1 L (16.0-40.0) % [place] % (Auto) 6.0 (0.0-15.0) % Eos % (Auto) 0.0 (0.0-7.0) % Baso % (Auto) 0.1 (0.0-1.5) % Neut # (Auto) 9.7 H (1.4-5.7) K/uL Lymph # (Auto) 0.7 (0.6-2.4) K/uL [place] # (Auto) 0.7 (0.0-0.8) K/uL Eos # (Auto) 0.0 (0.0-0.7) K/uL Baso # (Auto) 0.0 (0.0-0.1) K/uL Nucleated RBC % 0.0 /100WBC Nucleated RBCs # 0 K/uL Sodium 141 (136-145) mmol/L Potassium 5.0 (3.5-5.1) mmol/L Chloride 102 (98-107) mmol/L Carbon Dioxide 10.3 L (21.0-32.0) mmol/L BUN 65 H (7.0-18.0) mg/dL Creatinine 2.1 H (0.6-1.0) mg/dL Est Cr Clr Drug Dosing 14.53 mL/min Estimated GFR (MDRD) 22.5 ml/min Glucose 400 H (74-106) mg/dL POC Glucose (60-110) mg/dL Calcium 10.1 (8.5-10.1) mg/dL Phosphorus (2.6-4.7) mg/dL Magnesium (1.8-2.4) mg/dL Total Bilirubin 1.2 H (0.2-1.0) mg/dL AST 18 (15-37) IU/L ALT 24 (14-63) IU/L Alkaline Phosphatase 131 H (46-116) U/L Creatine Kinase 83 (26-308) U/L Total Protein 7.3 (6.4-8.2) g/dL Albumin 3.6 (3.4-5.0) g/dL Globulin 3.7 (2.6-4.0) g/dL Albumin/Globulin Ratio 1.0 (0.9-1.6) Urine Color YELLOW Urine Appearance CLEAR Urine pH 6.0 (5.0-8.0) Ur Specific [place] 1.025 (1.001-1.035) Urine Protein 30 H (NEGATIVE) mg/dL Urine Glucose (UA) >=1000 (NEGATIVE) mg/dL Urine Ketones 40 H (NEGATIVE) mg/dL Urine Occult Blood TRACE-INTACT H (NEGATIVE) Urine Nitrite NEGATIVE (NEGATIVE) Urine Bilirubin NEGATIVE (NEGATIVE) Urine Urobilinogen 0.2 (<2.0) EU/dL Ur Leukocyte Esterase NEGATIVE (NEGATIVE) Urine RBC 0-2 (0-2/HPF) Urine WBC 0-1 (0-5/HPF) Ur Epithelial Cells OCCASIONAL (NONE-FEW) Amorphous Sediment LIGHT (NEGATIVE) Urine Bacteria FEW (NEGATIVE) 05/11/18 05/11/18 05/11/18 Range/Units 18:38 21:02 22:57 WBC (4.0-11.0) K/uL RBC (4.30-5.90) M/uL Hgb (12.0-16.0) g/dL Hct (36.0-46.0) % MCV (80.0-98.0) fL MCH (27.0-32.0) pg MCHC (31.0-37.0) g/dL RDW Std Deviation (28.0-62.0) fl RDW Coeff of Dipti (11.0-15.0) % Plt Count (150-400) K/uL MPV (7.40-12.00) fL Neut % (Auto) (48.0-80.0) % Lymph % (Auto) (16.0-40.0) % [place] % (Auto) (0.0-15.0) % Eos % (Auto) (0.0-7.0) % Baso % (Auto) (0.0-1.5) % Neut # (Auto) (1.4-5.7) K/uL Lymph # (Auto) (0.6-2.4) K/uL [place] # (Auto) (0.0-0.8) K/uL Eos # (Auto) (0.0-0.7) K/uL Baso # (Auto) (0.0-0.1) K/uL Nucleated RBC % /100WBC Nucleated RBCs # K/uL Sodium (136-145) mmol/L Potassium (3.5-5.1) mmol/L Chloride (98-107) mmol/L Carbon Dioxide (21.0-32.0) mmol/L BUN (7.0-18.0) mg/dL Creatinine (0.6-1.0) mg/dL Est Cr Clr Drug Dosing mL/min Estimated GFR (MDRD) ml/min Glucose (74-106) mg/dL POC Glucose 396 H > 500 H > 500 H (60-110) mg/dL Calcium (8.5-10.1) mg/dL Phosphorus (2.6-4.7) mg/dL Magnesium (1.8-2.4) mg/dL Total Bilirubin (0.2-1.0) mg/dL AST (15-37) IU/L ALT (14-63) IU/L Alkaline Phosphatase (46-116) U/L Creatine Kinase (26-308) U/L Total Protein (6.4-8.2) g/dL Albumin (3.4-5.0) g/dL Globulin (2.6-4.0) g/dL Albumin/Globulin Ratio (0.9-1.6) Urine Color Urine Appearance Urine pH (5.0-8.0) Ur Specific [place] (1.001-1.035) Urine Protein (NEGATIVE) mg/dL Urine Glucose (UA) (NEGATIVE) mg/dL Urine Ketones (NEGATIVE) mg/dL Urine Occult Blood (NEGATIVE) Urine Nitrite (NEGATIVE) Urine Bilirubin (NEGATIVE) Urine Urobilinogen (<2.0) EU/dL Ur Leukocyte Esterase (NEGATIVE) Urine RBC (0-2/HPF) Urine WBC (0-5/HPF) Ur Epithelial Cells (NONE-FEW) Amorphous Sediment (NEGATIVE) Urine Bacteria (NEGATIVE) 05/12/18 05/12/18 05/12/18 Range/Units 01:02 03:19 05:10 WBC 9.26 (4.0-11.0) K/uL RBC 3.57 L (4.30-5.90) M/uL Hgb 11.1 L (12.0-16.0) g/dL Hct 32.3 L (36.0-46.0) % MCV 90.5 (80.0-98.0) fL MCH 31.1 (27.0-32.0) pg MCHC 34.4 (31.0-37.0) g/dL RDW Std Deviation 41.9 (28.0-62.0) fl RDW Coeff of Dipti 13 (11.0-15.0) % Plt Count 181 (150-400) K/uL MPV 9.20 (7.40-12.00) fL Neut % (Auto) 80.3 H (48.0-80.0) % Lymph % (Auto) 9.9 L (16.0-40.0) % [place] % (Auto) 9.3 (0.0-15.0) % Eos % (Auto) 0.4 (0.0-7.0) % Baso % (Auto) 0.1 (0.0-1.5) % Neut # (Auto) 7.4 H (1.4-5.7) K/uL Lymph # (Auto) 0.9 (0.6-2.4) K/uL [place] # (Auto) 0.9 H (0.0-0.8) K/uL Eos # (Auto) 0.0 (0.0-0.7) K/uL Baso # (Auto) 0.0 (0.0-0.1) K/uL Nucleated RBC % 0.0 /100WBC Nucleated RBCs # 0 K/uL Sodium (136-145) mmol/L Potassium (3.5-5.1) mmol/L Chloride (98-107) mmol/L Carbon Dioxide (21.0-32.0) mmol/L BUN (7.0-18.0) mg/dL Creatinine (0.6-1.0) mg/dL Est Cr Clr Drug Dosing mL/min Estimated GFR (MDRD) ml/min Glucose (74-106) mg/dL POC Glucose 425 H 321 H (60-110) mg/dL Calcium (8.5-10.1) mg/dL Phosphorus (2.6-4.7) mg/dL Magnesium (1.8-2.4) mg/dL Total Bilirubin (0.2-1.0) mg/dL AST (15-37) IU/L ALT (14-63) IU/L Alkaline Phosphatase (46-116) U/L Creatine Kinase (26-308) U/L Total Protein (6.4-8.2) g/dL Albumin (3.4-5.0) g/dL Globulin (2.6-4.0) g/dL Albumin/Globulin Ratio (0.9-1.6) Urine Color Urine Appearance Urine pH (5.0-8.0) Ur Specific [place] (1.001-1.035) Urine Protein (NEGATIVE) mg/dL Urine Glucose (UA) (NEGATIVE) mg/dL Urine Ketones (NEGATIVE) mg/dL Urine Occult Blood (NEGATIVE) Urine Nitrite (NEGATIVE) Urine Bilirubin (NEGATIVE) Urine Urobilinogen (<2.0) EU/dL Ur Leukocyte Esterase (NEGATIVE) Urine RBC (0-2/HPF) Urine WBC (0-5/HPF) Ur Epithelial Cells (NONE-FEW) Amorphous Sediment (NEGATIVE) Urine Bacteria (NEGATIVE) 05/12/18 05/12/18 05/12/18 Range/Units 05:10 06:49 12:04 WBC (4.0-11.0) K/uL RBC (4.30-5.90) M/uL Hgb (12.0-16.0) g/dL Hct (36.0-46.0) % MCV (80.0-98.0) fL MCH (27.0-32.0) pg MCHC (31.0-37.0) g/dL RDW Std Deviation (28.0-62.0) fl RDW Coeff of Dipti (11.0-15.0) % Plt Count (150-400) K/uL MPV (7.40-12.00) fL Neut % (Auto) (48.0-80.0) % Lymph % (Auto) (16.0-40.0) % [place] % (Auto) (0.0-15.0) % Eos % (Auto) (0.0-7.0) % Baso % (Auto) (0.0-1.5) % Neut # (Auto) (1.4-5.7) K/uL Lymph # (Auto) (0.6-2.4) K/uL [place] # (Auto) (0.0-0.8) K/uL Eos # (Auto) (0.0-0.7) K/uL Baso # (Auto) (0.0-0.1) K/uL Nucleated RBC % /100WBC Nucleated RBCs # K/uL Sodium 136 (136-145) mmol/L Potassium 3.9 (3.5-5.1) mmol/L Chloride 106 (98-107) mmol/L Carbon Dioxide 19.1 L (21.0-32.0) mmol/L BUN 58 H (7.0-18.0) mg/dL Creatinine 1.8 H (0.6-1.0) mg/dL Est Cr Clr Drug Dosing 16.96 mL/min Estimated GFR (MDRD) 26.9 ml/min Glucose 233 H (74-106) mg/dL POC Glucose 157 H 195 H (60-110) mg/dL Calcium 8.6 (8.5-10.1) mg/dL Phosphorus 2.0 L (2.6-4.7) mg/dL Magnesium 2.1 (1.8-2.4) mg/dL Total Bilirubin 0.7 (0.2-1.0) mg/dL AST 20 (15-37) IU/L ALT 14 (14-63) IU/L Alkaline Phosphatase 92 (46-116) U/L Creatine Kinase (26-308) U/L Total Protein 5.5 L (6.4-8.2) g/dL Albumin 2.5 L (3.4-5.0) g/dL Globulin 3.0 (2.6-4.0) g/dL Albumin/Globulin Ratio 0.8 L (0.9-1.6) Urine Color Urine Appearance Urine pH (5.0-8.0) Ur Specific [place] (1.001-1.035) Urine Protein (NEGATIVE) mg/dL Urine Glucose (UA) (NEGATIVE) mg/dL Urine Ketones (NEGATIVE) mg/dL Urine Occult Blood (NEGATIVE) Urine Nitrite (NEGATIVE) Urine Bilirubin (NEGATIVE) Urine Urobilinogen (<2.0) EU/dL Ur Leukocyte Esterase (NEGATIVE) Urine RBC (0-2/HPF) Urine WBC (0-5/HPF) Ur Epithelial Cells (NONE-FEW) Amorphous Sediment (NEGATIVE) Urine Bacteria (NEGATIVE) Med Orders - Current: Current Medications Amlodipine Besylate (Norvasc) 5 mg PO DAILY [facility] Last Admin: 05/12/18 08:57 Dose: Not Given Heparin Sodium (Porcine) (Heparin Sodium) 5,000 units SUBCUT Q8H [facility] Ciprofloxacin/Dextrose 400 mg/ (Premix) 200 mls @ 200 mls/hr IV Q24H [facility] Last Admin: 05/11/18 19:46 Dose: 200 mls/hr Sodium Chloride (Normal Saline) 1,000 mls @ 150 mls/hr IV ASDIRECTED [facility] Last Admin: 05/12/18 11:19 Dose: 150 mls/hr Insulin Aspart (Novolog) 0 unit SUBCUT TIDAC [facility]; Protocol Last Admin: 05/12/18 10:01 Dose: 2 units Insulin Detemir (Levemir) 10 unit SUBCUT BEDTIME [facility] Last Admin: 05/11/18 21:18 Dose: 10 units Lisinopril (Prinivil) 5 mg PO DAILY [facility] Last Admin: 05/12/18 08:57 Dose: Not Given Lorazepam (Ativan) 1 mg PO BEDTIME PRN PRN Reason: Anxiety Morphine Sulfate (Morphine) 2 mg IVPUSH Q2H PRN PRN Reason: Pain (severe 7-10) Stop: 05/12/18 18:16 Ondansetron HCl (Zofran) 4 mg IVPUSH Q4H PRN PRN Reason: Nausea/Vomiting Sodium Chloride (Saline Flush) 10 ml FLUSH ASDIRECTED PRN PRN Reason: Keep Vein Open Last Admin: 05/11/18 15:42 Dose: 10 ml Sodium Chloride (Saline Flush) 2.5 ml FLUSH ASDIRECTED PRN PRN Reason: Keep Vein Open Last Admin: 05/11/18 15:42 Dose: 2.5 ml Sodium Chloride (Saline Flush) 10 ml FLUSH ASDIRECTED PRN PRN Reason: Keep Vein Open Sodium Chloride (Saline Flush) 2.5 ml FLUSH ASDIRECTED PRN PRN Reason: Keep Vein Open Sodium Phosphate (Neutra-Phos) 250 mg PO QID [facility] Discontinued Medications Enoxaparin Sodium (Lovenox) 30 mg SUBCUT Q24H [facility] Last Admin: 05/11/18 19:42 Dose: 30 mg Sodium Chloride (Normal Saline) 1,000 mls @ 999 mls/hr IV .Bolus ONE Stop: 05/11/18 15:33 Last Admin: 05/11/18 15:15 Dose: 999 mls/hr Insulin Aspart (Novolog) 15 unit SUBCUT ONETIME ONE Stop: 05/11/18 21:12 Last Admin: 05/11/18 21:26 Dose: 15 units Insulin Aspart (Novolog) 10 unit SUBCUT ONETIME ONE Stop: 05/11/18 23:01 Last Admin: 05/11/18 23:05 Dose: 10 units Insulin Aspart (Novolog) 10 unit SUBCUT ONETIME ONE Stop: 05/12/18 01:06 Last Admin: 05/12/18 01:09 Dose: 10 units - Exam Quality Assessment: Supplemental Oxygen General: Alert, Mild Distress Lungs: Clear to Auscultation, Normal Respiratory Effort Cardiovascular: Regular Rate, Regular Rhythm - Problem List & Annotations (1) Failure to thrive SNOMED Code(s): 05005936 Code(s): CJC2098 - Status: Acute Current Visit: Yes (2) Dehydration SNOMED Code(s): 58260781 Code(s): E86.0 - DEHYDRATION Status: Acute Current Visit: Yes (3) UTI, Urinary tract infectious disease SNOMED Code(s): 43240002 Code(s): N39.0 - URINARY TRACT INFECTION, SITE NOT SPECIFIED Status: Acute Current Visit: No (4) Unable to ambulate SNOMED Code(s): 851341079 Code(s): R26.2 - DIFFICULTY IN WALKING, NOT ELSEWHERE CLASSIFIED Status: Acute Current Visit: No (5) Dehydration SNOMED Code(s): 88060361 Code(s): E86.0 - DEHYDRATION Status: Resolved Current Visit: No (6) Uncontrolled diabetes mellitus SNOMED Code(s): 27365049, 269063025 Code(s): E11.65 - TYPE 2 DIABETES MELLITUS WITH HYPERGLYCEMIA Status: Acute Current Visit: No (7) Sacral decubitus ulcer SNOMED Code(s): 043230431 Code(s): L89.159 - PRESSURE ULCER OF SACRAL REGION, UNSPECIFIED STAGE Status: Chronic Current Visit: No Qualifiers: Pressure injury stage: stage 1 Qualified Code(s): L89.151 - Pressure ulcer of sacral region, stage 1 (8) HTN (hypertension) SNOMED Code(s): 13222057 Code(s): I10 - ESSENTIAL (PRIMARY) HYPERTENSION Status: Chronic Current Visit: No Qualifiers: Hypertension type: essential hypertension Qualified Code(s): I10 - Essential (primary) hypertension (9) DM type 2 (diabetes mellitus, type 2) SNOMED Code(s): 64208688 Code(s): E11.9 - TYPE 2 DIABETES MELLITUS WITHOUT COMPLICATIONS Status: Chronic Current Visit: No Qualifiers: Diabetes mellitus terminal operations manager insulin use: with fci use Diabetes mellitus complication status: with skin complications Diabetes mellitus complication detail: with other skin ulcer Qualified Code(s): E11.622 - Type 2 diabetes mellitus with other skin ulcer; Z79.4 - roasterman (current) use of insulin - Problem List Review Problem List Initiated/Reviewed/Updated: Yes - My Orders Last 24 Hours: My Active Orders 05/11/18 18:00 Ciprofloxacin in D5W [Cipro in D5W 400 MG/200 ML] 400 mg Premix Bag 1 bag IV Q24H 05/11/18 18:15 Blood Glucose Check, Bedside [RC] QIDACANDBED Height and Weight [RC] UPON Intake and Output [RC] QSHIFT Oxygen Therapy [RC] PRN Up With Assistance [RC] ASDIRECTED VTE/DVT Education [RC] PER UNIT ROUTINE Vital Signs [RC] Q4H Consult to Case Management/Surgical Clinical Reviewer [CONS] Routine Morphine 2 mg IVPUSH Q2H PRN Ondansetron [Zofran] 4 mg IVPUSH Q4H PRN Sodium Chloride 0.9% [Normal Saline] 1,000 ml IV ASDIRECTED Sodium Chloride 0.9% [Saline Flush] 10 ml FLUSH ASDIRECTED PRN Sodium Chloride 0.9% [Saline Flush] 2.5 ml FLUSH ASDIRECTED PRN Peripheral IV Insertion Adult [OM.PC] Routine Saline Lock Insert [OM.PC] Routine Sequential Compression Device [OM.PC] Per Unit Routine 05/11/18 18:17 Antiembolic Devices [RC] PER UNIT ROUTINE 05/11/18 18:24 LORazepam [Ativan] 1 mg PO BEDTIME PRN 05/11/18 18:30 Insulin Aspart [NovoLOG] See Protocol SUBCUT TIDAC Lisinopril [Prinivil] 5 mg PO DAILY amLODIPine [Norvasc] 5 mg PO DAILY 05/11/18 21:00 Insulin Detemir [Levemir] 10 unit SUBCUT BEDTIME 05/12/18 12:00 Phosphorus #1 [Neutra-Phos] 250 mg PO QID 05/12/18 22:00 Heparin Sodium 5,000 units SUBCUT Q8H - Plan Plan:: This is a 82-year-old female that is unable to communicate secondary to language barrier who is presenting due to failure to thrive, dehydration, uncontrolled type 2 diabetes with the elevated blood glucose level as well as ketones in the urine, a urine analysis indicating likely urinary tract infection. #1. Dehydration secondary to an elevation in the BUN and creatinine from baseline -Patient's dehydration status does appear to be improving her creatinine and BUN are improving continue to monitor and follow #2. Urinary analysis indicating a possible urinary tract infection- patient has an elevated WBC count neutrophilic in nature -Awaiting urine culture results continue with ciprofloxacin 400 mg every 24 hours renally dosed #3. Hyperglycemia secondary to uncontrolled type 2 diabetes -Patient hyperglycemia is improving continue with the current insulin sliding scale and long-acting insulin regimen and monitor glucose closely. #4. Failure to thrive secondary to poor living conditions with possible underlying dementia -Has spoken with social service and case management, she'll await for the patient's clinical symptoms to improve and clear up and she'll have telemetry psych assessed the patient for their recommendations as far as the patient's underlying dementia issues. Anticipated length of stay will be greater than 2 midnights. As such the patient shall be admitted under inpatient status.
[2018-05-12] MEDS: Phosphorus #1 250 MG Tab PO SCH ×2 (13:06→18:10)
[2018-05-12] MEDS: Ciprofloxacin in D5W 400 MG in Premix Bag 1 BAG IV SCH ×2 (18:12)
[2018-05-12] MEDS: Insulin Detemir 100 Units/ML 3 ML Pen SUBCUT SCH (21:56)
[2018-05-12] MEDS: Heparin Sodium 5,000 Units/ML Vial SUBCUT SCH (21:57)
[2018-05-13] MEDS: Phosphorus #1 250 MG Tab PO SCH ×4 (00:53→17:44)
[2018-05-13] MEDS: Sodium Chloride 0.9% 1,000 ML IV SCH ×2 (01:54→16:52)
[2018-05-13] MEDS: Heparin Sodium 5,000 Units/ML Vial SUBCUT SCH ×3 (06:16→21:43)
[2018-05-13] MEDS: amLODIPine 5 MG Tab PO SCH (08:47)
[2018-05-13] MEDS: Insulin Aspart 100 Units/ML 3 ML Pen SUBCUT SCH ×3 (08:47→17:44)
[2018-05-13] MEDS: Lisinopril 5 MG Tab PO SCH (08:48)
[2018-05-13] MEDS: Pantoprazole 40 MG Tab.CR PO SCH (13:34)
[2018-05-13] MEDS: Ciprofloxacin in D5W 400 MG in Premix Bag 1 BAG IV SCH ×2 (17:44)
[2018-05-13] MEDS: Insulin Detemir 100 Units/ML 3 ML Pen SUBCUT SCH (21:00)
--- NOTE | 2018-05-13 21:57 | PCM.PN ---
- General Info Date of Service: 05/13/18 Subjective Update: Patient continues to be nonverbal, but appears to not be in any distress - Patient Data Vitals - Most Recent: Last Vital Signs Temp 37.2 C 05/13/18 16:00 Pulse 68 05/13/18 16:00 Resp 16 05/13/18 16:00 BP 193/82 H 05/13/18 16:00 Pulse Ox 94 L 05/13/18 18:00 Weight - Most Recent: 45.359 kg I&O - Last 24 Hours: Intake & Output 05/13/18 05/13/18 05/13/18 06:59 14:59 22:59 Intake Total 2040 2200 Output Total 1000 1500 Balance 1040 700 Lab Results Last 24 Hours: Laboratory Results - last 24 hr 05/12/18 05/13/18 05/13/18 Range/Units 21:55 06:14 11:28 WBC (4.0-11.0) K/uL RBC (4.30-5.90) M/uL Hgb (12.0-16.0) g/dL Hct (36.0-46.0) % MCV (80.0-98.0) fL MCH (27.0-32.0) pg MCHC (31.0-37.0) g/dL RDW Std Deviation (28.0-62.0) fl RDW Coeff of Dipti (11.0-15.0) % Plt Count (150-400) K/uL MPV (7.40-12.00) fL Neut % (Auto) (48.0-80.0) % Lymph % (Auto) (16.0-40.0) % Boyle % (Auto) (0.0-15.0) % Eos % (Auto) (0.0-7.0) % Baso % (Auto) (0.0-1.5) % Neut # (Auto) (1.4-5.7) K/uL Lymph # (Auto) (0.6-2.4) K/uL Boyle # (Auto) (0.0-0.8) K/uL Eos # (Auto) (0.0-0.7) K/uL Baso # (Auto) (0.0-0.1) K/uL Nucleated RBC % /100WBC Nucleated RBCs # K/uL Sodium (136-145) mmol/L Potassium (3.5-5.1) mmol/L Chloride (98-107) mmol/L Carbon Dioxide (21.0-32.0) mmol/L BUN (7.0-18.0) mg/dL Creatinine (0.6-1.0) mg/dL Est Cr Clr Drug Dosing mL/min Estimated GFR (MDRD) ml/min Glucose (74-106) mg/dL POC Glucose 276 H 185 H 305 H (60-110) mg/dL Calcium (8.5-10.1) mg/dL Phosphorus (2.6-4.7) mg/dL Total Bilirubin (0.2-1.0) mg/dL AST (15-37) IU/L ALT (14-63) IU/L Alkaline Phosphatase (46-116) U/L Total Protein (6.4-8.2) g/dL Albumin (3.4-5.0) g/dL Globulin (2.6-4.0) g/dL Albumin/Globulin Ratio (0.9-1.6) 05/13/18 05/13/18 05/13/18 Range/Units 12:00 12:00 17:05 WBC 6.65 (4.0-11.0) K/uL RBC 3.89 L (4.30-5.90) M/uL Hgb 12.0 (12.0-16.0) g/dL Hct 34.9 L (36.0-46.0) % MCV 89.7 (80.0-98.0) fL MCH 30.8 (27.0-32.0) pg MCHC 34.4 (31.0-37.0) g/dL RDW Std Deviation 41.7 (28.0-62.0) fl RDW Coeff of Dipti 13 (11.0-15.0) % Plt Count 163 (150-400) K/uL MPV 9.60 (7.40-12.00) fL Neut % (Auto) 80.9 H (48.0-80.0) % Lymph % (Auto) 11.9 L (16.0-40.0) % Boyle % (Auto) 6.2 (0.0-15.0) % Eos % (Auto) 0.8 (0.0-7.0) % Baso % (Auto) 0.2 (0.0-1.5) % Neut # (Auto) 5.4 (1.4-5.7) K/uL Lymph # (Auto) 0.8 (0.6-2.4) K/uL Boyle # (Auto) 0.4 (0.0-0.8) K/uL Eos # (Auto) 0.1 (0.0-0.7) K/uL Baso # (Auto) 0.0 (0.0-0.1) K/uL Nucleated RBC % 0.0 /100WBC Nucleated RBCs # 0 K/uL Sodium 133 L (136-145) mmol/L Potassium 3.3 L (3.5-5.1) mmol/L Chloride 104 (98-107) mmol/L Carbon Dioxide 19.3 L (21.0-32.0) mmol/L BUN 32 H (7.0-18.0) mg/dL Creatinine 1.1 H (0.6-1.0) mg/dL Est Cr Clr Drug Dosing 27.75 mL/min Estimated GFR (MDRD) 47.4 ml/min Glucose 306 H (74-106) mg/dL POC Glucose 211 H (60-110) mg/dL Calcium 8.4 L (8.5-10.1) mg/dL Phosphorus 3.3 (2.6-4.7) mg/dL Total Bilirubin 0.7 (0.2-1.0) mg/dL AST 21 (15-37) IU/L ALT 21 (14-63) IU/L Alkaline Phosphatase 93 (46-116) U/L Total Protein 5.8 L (6.4-8.2) g/dL Albumin 2.5 L (3.4-5.0) g/dL Globulin 3.3 (2.6-4.0) g/dL Albumin/Globulin Ratio 0.8 L (0.9-1.6) 05/13/18 Range/Units 21:42 WBC (4.0-11.0) K/uL RBC (4.30-5.90) M/uL Hgb (12.0-16.0) g/dL Hct (36.0-46.0) % MCV (80.0-98.0) fL MCH (27.0-32.0) pg MCHC (31.0-37.0) g/dL RDW Std Deviation (28.0-62.0) fl RDW Coeff of Dipti (11.0-15.0) % Plt Count (150-400) K/uL MPV (7.40-12.00) fL Neut % (Auto) (48.0-80.0) % Lymph % (Auto) (16.0-40.0) % Boyle % (Auto) (0.0-15.0) % Eos % (Auto) (0.0-7.0) % Baso % (Auto) (0.0-1.5) % Neut # (Auto) (1.4-5.7) K/uL Lymph # (Auto) (0.6-2.4) K/uL Boyle # (Auto) (0.0-0.8) K/uL Eos # (Auto) (0.0-0.7) K/uL Baso # (Auto) (0.0-0.1) K/uL Nucleated RBC % /100WBC Nucleated RBCs # K/uL Sodium (136-145) mmol/L Potassium (3.5-5.1) mmol/L Chloride (98-107) mmol/L Carbon Dioxide (21.0-32.0) mmol/L BUN (7.0-18.0) mg/dL Creatinine (0.6-1.0) mg/dL Est Cr Clr Drug Dosing mL/min Estimated GFR (MDRD) ml/min Glucose (74-106) mg/dL POC Glucose 185 H (60-110) mg/dL Calcium (8.5-10.1) mg/dL Phosphorus (2.6-4.7) mg/dL Total Bilirubin (0.2-1.0) mg/dL AST (15-37) IU/L ALT (14-63) IU/L Alkaline Phosphatase (46-116) U/L Total Protein (6.4-8.2) g/dL Albumin (3.4-5.0) g/dL Globulin (2.6-4.0) g/dL Albumin/Globulin Ratio (0.9-1.6) Med Orders - Current: Current Medications Amlodipine Besylate (Norvasc) 5 mg PO DAILY [facility] Last Admin: 05/13/18 08:47 Dose: 5 mg Heparin Sodium (Porcine) (Heparin Sodium) 5,000 units SUBCUT Q8H [facility] Last Admin: 05/13/18 21:43 Dose: 5,000 units Ciprofloxacin/Dextrose 400 mg/ (Premix) 200 mls @ 200 mls/hr IV Q24H [facility] Last Admin: 05/13/18 17:44 Dose: 200 mls/hr Sodium Chloride (Normal Saline) 1,000 mls @ 150 mls/hr IV ASDIRECTED [facility] Last Admin: 05/13/18 16:52 Dose: 150 mls/hr Insulin Aspart (Novolog) 0 unit SUBCUT TIDAC [facility]; Protocol Last Admin: 05/13/18 17:44 Dose: 4 units Insulin Detemir (Levemir) 10 unit SUBCUT BEDTIME [facility] Last Admin: 05/12/18 21:56 Dose: 10 units Lisinopril (Prinivil) 5 mg PO DAILY [facility] Last Admin: 05/13/18 08:48 Dose: 5 mg Lorazepam (Ativan) 1 mg PO BEDTIME PRN PRN Reason: Anxiety Ondansetron HCl (Zofran) 4 mg IVPUSH Q4H PRN PRN Reason: Nausea/Vomiting Pantoprazole Sodium (Protonix) 40 mg PO ACBREAKFAST [facility] Last Admin: 05/13/18 13:34 Dose: 40 mg Sodium Chloride (Saline Flush) 10 ml FLUSH ASDIRECTED PRN PRN Reason: Keep Vein Open Last Admin: 05/11/18 15:42 Dose: 10 ml Sodium Chloride (Saline Flush) 2.5 ml FLUSH ASDIRECTED PRN PRN Reason: Keep Vein Open Last Admin: 05/11/18 15:42 Dose: 2.5 ml Sodium Chloride (Saline Flush) 10 ml FLUSH ASDIRECTED PRN PRN Reason: Keep Vein Open Sodium Chloride (Saline Flush) 2.5 ml FLUSH ASDIRECTED PRN PRN Reason: Keep Vein Open Sodium Phosphate (Neutra-Phos) 250 mg PO QID [facility] Last Admin: 05/13/18 17:44 Dose: 250 mg Discontinued Medications Enoxaparin Sodium (Lovenox) 30 mg SUBCUT Q24H [facility] Last Admin: 02/12/19 19:42 Dose: 30 mg Sodium Chloride (Normal Saline) 1,000 mls @ 999 mls/hr IV .Bolus ONE Stop: 05/11/18 15:33 Last Admin: 05/11/18 15:15 Dose: 999 mls/hr Insulin Aspart (Novolog) 15 unit SUBCUT ONETIME ONE Stop: 05/11/18 21:12 Last Admin: 05/11/18 21:26 Dose: 15 units Insulin Aspart (Novolog) 10 unit SUBCUT ONETIME ONE Stop: 05/11/18 23:01 Last Admin: 05/11/18 23:05 Dose: 10 units Insulin Aspart (Novolog) 10 unit SUBCUT ONETIME ONE Stop: 05/12/18 01:06 Last Admin: 05/12/18 01:09 Dose: 10 units Morphine Sulfate (Morphine) 2 mg IVPUSH Q2H PRN PRN Reason: Pain (severe 7-10) Stop: 05/12/18 18:16 - Exam General: Alert Lungs: Clear to Auscultation, Normal Respiratory Effort Cardiovascular: Regular Rate, Regular Rhythm - Problem List & Annotations (1) Failure to thrive SNOMED Code(s): 82423477 Code(s): MOD6558 - Status: Acute Current Visit: Yes (2) Dehydration SNOMED Code(s): 71198867 Code(s): E86.0 - DEHYDRATION Status: Acute Current Visit: Yes (3) UTI, Urinary tract infectious disease SNOMED Code(s): 81885442 Code(s): N39.0 - URINARY TRACT INFECTION, SITE NOT SPECIFIED Status: Acute Current Visit: No (4) Unable to ambulate SNOMED Code(s): 287125131 Code(s): R26.2 - DIFFICULTY IN WALKING, NOT ELSEWHERE CLASSIFIED Status: Acute Current Visit: No (5) Dehydration SNOMED Code(s): 17592469 Code(s): E86.0 - DEHYDRATION Status: Resolved Current Visit: No (6) Uncontrolled diabetes mellitus SNOMED Code(s): 96049045, 317112227 Code(s): E11.65 - TYPE 2 DIABETES MELLITUS WITH HYPERGLYCEMIA Status: Acute Current Visit: No (7) Sacral decubitus ulcer SNOMED Code(s): 457609471 Code(s): L89.159 - PRESSURE ULCER OF SACRAL REGION, UNSPECIFIED STAGE Status: Chronic Current Visit: No Qualifiers: Pressure injury stage: stage 1 Qualified Code(s): L89.151 - Pressure ulcer of sacral region, stage 1 (8) HTN (hypertension) SNOMED Code(s): 41136984 Code(s): I10 - ESSENTIAL (PRIMARY) HYPERTENSION Status: Chronic Current Visit: No Qualifiers: Hypertension type: essential hypertension Qualified Code(s): I10 - Essential (primary) hypertension (9) DM type 2 (diabetes mellitus, type 2) SNOMED Code(s): 21082343 Code(s): E11.9 - TYPE 2 DIABETES MELLITUS WITHOUT COMPLICATIONS Status: Chronic Current Visit: No Qualifiers: Diabetes mellitus [facility] insulin use: with [facility] use Diabetes mellitus complication status: with skin complications Diabetes mellitus complication detail: with other skin ulcer Qualified Code(s): E11.622 - Type 2 diabetes mellitus with other skin ulcer; Z79.4 - assisted (current) use of insulin - Problem List Review Problem List Initiated/Reviewed/Updated: Yes - My Orders Last 24 Hours: My Active Orders 05/12/18 22:00 Heparin Sodium 5,000 units SUBCUT Q8H 05/13/18 13:30 Pantoprazole [ProTONIX] 40 mg PO ACBREAKFAST 05/14/18 05:11 CBC WITH AUTO DIFF [HEME] AM COMPREHENSIVE METABOLIC PN,CMP [CHEM] AM MAGNESIUM [CHEM] AM PHOSPHORUS [CHEM] AM - Plan Plan:: This is a 82-year-old female that is unable to communicate secondary to language barrier who is presenting due to failure to thrive, dehydration, uncontrolled type 2 diabetes with the elevated blood glucose level as well as ketones in the urine, a urine analysis indicating likely urinary tract infection. #1. Dehydration secondary to an elevation in the BUN and creatinine from baseline -Patient's dehydration resolved #2. Urinary analysis indicating a possible urinary tract infection- patient has an elevated WBC count neutrophilic in nature -Awaiting urine culture results continue with ciprofloxacin 400 mg every 24 hours renally dosed #3. Hyperglycemia secondary to uncontrolled type 2 diabetes -Patient hyperglycemia stable continue with the current insulin sliding scale and long-acting insulin regimen and monitor glucose closely. #4. Failure to thrive secondary to poor living conditions with possible underlying dementia -awaiting placement Anticipated length of stay will be greater than 2 midnights. As such the patient shall be admitted under inpatient status.
[2018-05-14] MEDS: Sodium Chloride 0.9% 1,000 ML IV SCH (00:32)
[2018-05-14] MEDS: Phosphorus #1 250 MG Tab PO SCH ×5 (00:45→23:45)
[2018-05-14] MEDS: Heparin Sodium 5,000 Units/ML Vial SUBCUT SCH ×3 (05:37→21:10)
[2018-05-14] MEDS: Pantoprazole 40 MG Tab.CR PO SCH (07:36)
[2018-05-14] MEDS: Insulin Aspart 100 Units/ML 3 ML Pen SUBCUT SCH ×3 (07:38→17:27)
[2018-05-14] MEDS ORDERED: Insulin Aspart 100 Units/ML 3 ML Pen SUBCUT ONE (08:56)
[2018-05-14] MEDS: Potassium Chloride 20 MEQ Tab.ER PO SCH ×2 (09:18→21:06)
[2018-05-14] MEDS: amLODIPine 5 MG Tab PO SCH (09:19)
[2018-05-14] MEDS: Lisinopril 5 MG Tab PO SCH (09:20)
--- NOTE | 2018-05-14 12:09 | PCM.PN ---
- General Info Date of Service: 05/14/18 Subjective Update: Pt is nonverbal. Was refusing Lab draws in the am. Is eating well. Awaiting disposition due to social/safety concerns. - Patient Data Vitals - Most Recent: Last Vital Signs Temp 36.8 C 05/14/18 08:00 Pulse 88 05/14/18 08:00 Resp 16 05/14/18 08:00 BP 130/60 05/14/18 09:20 Pulse Ox 98 05/14/18 08:00 Weight - Most Recent: 45.359 kg I&O - Last 24 Hours: Intake & Output 05/13/18 05/14/18 05/14/18 22:59 06:59 14:59 Intake Total 2200 1000 Output Total 1500 2000 Balance 700 -1000 Lab Results Last 24 Hours: Laboratory Results - last 24 hr 05/13/18 05/13/18 05/13/18 Range/Units 12:00 12:00 17:05 WBC 6.65 (4.0-11.0) K/uL RBC 3.89 L (4.30-5.90) M/uL Hgb 12.0 (12.0-16.0) g/dL Hct 34.9 L (36.0-46.0) % MCV 89.7 (80.0-98.0) fL MCH 30.8 (27.0-32.0) pg MCHC 34.4 (31.0-37.0) g/dL RDW Std Deviation 41.7 (28.0-62.0) fl RDW Coeff of Dipti 13 (11.0-15.0) % Plt Count 163 (150-400) K/uL MPV 9.60 (7.40-12.00) fL Neut % (Auto) 80.9 H (48.0-80.0) % Lymph % (Auto) 11.9 L (16.0-40.0) % [place] % (Auto) 6.2 (0.0-15.0) % Eos % (Auto) 0.8 (0.0-7.0) % Baso % (Auto) 0.2 (0.0-1.5) % Neut # (Auto) 5.4 (1.4-5.7) K/uL Lymph # (Auto) 0.8 (0.6-2.4) K/uL [place] # (Auto) 0.4 (0.0-0.8) K/uL Eos # (Auto) 0.1 (0.0-0.7) K/uL Baso # (Auto) 0.0 (0.0-0.1) K/uL Nucleated RBC % 0.0 /100WBC Nucleated RBCs # 0 K/uL Sodium 133 L (136-145) mmol/L Potassium 3.3 L (3.5-5.1) mmol/L Chloride 104 (98-107) mmol/L Carbon Dioxide 19.3 L (21.0-32.0) mmol/L BUN 32 H (7.0-18.0) mg/dL Creatinine 1.1 H (0.6-1.0) mg/dL Est Cr Clr Drug Dosing 27.75 mL/min Estimated GFR (MDRD) 47.4 ml/min Glucose 306 H (74-106) mg/dL POC Glucose 211 H (60-110) mg/dL Calcium 8.4 L (8.5-10.1) mg/dL Phosphorus 3.3 (2.6-4.7) mg/dL Total Bilirubin 0.7 (0.2-1.0) mg/dL AST 21 (15-37) IU/L ALT 21 (14-63) IU/L Alkaline Phosphatase 93 (46-116) U/L Total Protein 5.8 L (6.4-8.2) g/dL Albumin 2.5 L (3.4-5.0) g/dL Globulin 3.3 (2.6-4.0) g/dL Albumin/Globulin Ratio 0.8 L (0.9-1.6) 05/13/18 05/14/18 05/14/18 Range/Units 21:42 06:17 08:41 WBC (4.0-11.0) K/uL RBC (4.30-5.90) M/uL Hgb (12.0-16.0) g/dL Hct (36.0-46.0) % MCV (80.0-98.0) fL MCH (27.0-32.0) pg MCHC (31.0-37.0) g/dL RDW Std Deviation (28.0-62.0) fl RDW Coeff of Dipti (11.0-15.0) % Plt Count (150-400) K/uL MPV (7.40-12.00) fL Neut % (Auto) (48.0-80.0) % Lymph % (Auto) (16.0-40.0) % [place] % (Auto) (0.0-15.0) % Eos % (Auto) (0.0-7.0) % Baso % (Auto) (0.0-1.5) % Neut # (Auto) (1.4-5.7) K/uL Lymph # (Auto) (0.6-2.4) K/uL [place] # (Auto) (0.0-0.8) K/uL Eos # (Auto) (0.0-0.7) K/uL Baso # (Auto) (0.0-0.1) K/uL Nucleated RBC % /100WBC Nucleated RBCs # K/uL Sodium (136-145) mmol/L Potassium (3.5-5.1) mmol/L Chloride (98-107) mmol/L Carbon Dioxide (21.0-32.0) mmol/L BUN (7.0-18.0) mg/dL Creatinine (0.6-1.0) mg/dL Est Cr Clr Drug Dosing mL/min Estimated GFR (MDRD) ml/min Glucose (74-106) mg/dL POC Glucose 185 H 417 H 379 H (60-110) mg/dL Calcium (8.5-10.1) mg/dL Phosphorus (2.6-4.7) mg/dL Total Bilirubin (0.2-1.0) mg/dL AST (15-37) IU/L ALT (14-63) IU/L Alkaline Phosphatase (46-116) U/L Total Protein (6.4-8.2) g/dL Albumin (3.4-5.0) g/dL Globulin (2.6-4.0) g/dL Albumin/Globulin Ratio (0.9-1.6) 05/14/18 Range/Units 10:42 WBC (4.0-11.0) K/uL RBC (4.30-5.90) M/uL Hgb (12.0-16.0) g/dL Hct (36.0-46.0) % MCV (80.0-98.0) fL MCH (27.0-32.0) pg MCHC (31.0-37.0) g/dL RDW Std Deviation (28.0-62.0) fl RDW Coeff of Dipti (11.0-15.0) % Plt Count (150-400) K/uL MPV (7.40-12.00) fL Neut % (Auto) (48.0-80.0) % Lymph % (Auto) (16.0-40.0) % [place] % (Auto) (0.0-15.0) % Eos % (Auto) (0.0-7.0) % Baso % (Auto) (0.0-1.5) % Neut # (Auto) (1.4-5.7) K/uL Lymph # (Auto) (0.6-2.4) K/uL [place] # (Auto) (0.0-0.8) K/uL Eos # (Auto) (0.0-0.7) K/uL Baso # (Auto) (0.0-0.1) K/uL Nucleated RBC % /100WBC Nucleated RBCs # K/uL Sodium (136-145) mmol/L Potassium (3.5-5.1) mmol/L Chloride (98-107) mmol/L Carbon Dioxide (21.0-32.0) mmol/L BUN (7.0-18.0) mg/dL Creatinine (0.6-1.0) mg/dL Est Cr Clr Drug Dosing mL/min Estimated GFR (MDRD) ml/min Glucose (74-106) mg/dL POC Glucose 402 H (60-110) mg/dL Calcium (8.5-10.1) mg/dL Phosphorus (2.6-4.7) mg/dL Total Bilirubin (0.2-1.0) mg/dL AST (15-37) IU/L ALT (14-63) IU/L Alkaline Phosphatase (46-116) U/L Total Protein (6.4-8.2) g/dL Albumin (3.4-5.0) g/dL Globulin (2.6-4.0) g/dL Albumin/Globulin Ratio (0.9-1.6) Tho Results Last 24 Hours: Microbiology 02/12/19 15:05 Urine Culture - Final Urine, Catheterized MIXED ALISSA 1,000-10,000 CFU/ML Med Orders - Current: Current Medications Amlodipine Besylate (Norvasc) 5 mg PO DAILY [facility] Last Admin: 05/14/18 09:19 Dose: 5 mg Heparin Sodium (Porcine) (Heparin Sodium) 5,000 units SUBCUT Q8H [facility] Last Admin: 05/14/18 05:37 Dose: 5,000 units Ciprofloxacin/Dextrose 400 mg/ (Premix) 200 mls @ 200 mls/hr IV Q24H [facility] Last Admin: 05/13/18 17:44 Dose: 200 mls/hr Sodium Chloride (Normal Saline) 1,000 mls @ 150 mls/hr IV ASDIRECTED [facility] Last Admin: 05/14/18 00:32 Dose: 150 mls/hr Insulin Aspart (Novolog) 0 unit SUBCUT TIDAC [facility]; Protocol Last Admin: 05/14/18 07:38 Dose: 10 units Insulin Detemir (Levemir) 10 unit SUBCUT BEDTIME [facility] Last Admin: 05/13/18 21:00 Dose: 10 units Lisinopril (Prinivil) 5 mg PO DAILY [facility] Last Admin: 05/14/18 09:20 Dose: 5 mg Lorazepam (Ativan) 1 mg PO BEDTIME PRN PRN Reason: Anxiety Ondansetron HCl (Zofran) 4 mg IVPUSH Q4H PRN PRN Reason: Nausea/Vomiting Pantoprazole Sodium (Protonix) 40 mg PO ACBREAKFAST [facility] Last Admin: 05/14/18 07:36 Dose: 40 mg Potassium Chloride (Klor-Con M20) 40 meq PO BID [facility] Last Admin: 05/14/18 09:18 Dose: 40 meq Sodium Chloride (Saline Flush) 10 ml FLUSH ASDIRECTED PRN PRN Reason: Keep Vein Open Last Admin: 05/11/18 15:42 Dose: 10 ml Sodium Chloride (Saline Flush) 2.5 ml FLUSH ASDIRECTED PRN PRN Reason: Keep Vein Open Last Admin: 05/11/18 15:42 Dose: 2.5 ml Sodium Chloride (Saline Flush) 10 ml FLUSH ASDIRECTED PRN PRN Reason: Keep Vein Open Sodium Chloride (Saline Flush) 2.5 ml FLUSH ASDIRECTED PRN PRN Reason: Keep Vein Open Sodium Phosphate (Neutra-Phos) 250 mg PO QID [facility] Last Admin: 05/14/18 05:37 Dose: 250 mg Discontinued Medications Enoxaparin Sodium (Lovenox) 30 mg SUBCUT Q24H [facility] Last Admin: 05/11/18 19:42 Dose: 30 mg Sodium Chloride (Normal Saline) 1,000 mls @ 999 mls/hr IV .Bolus ONE Stop: 05/11/18 15:33 Last Admin: 05/11/18 15:15 Dose: 999 mls/hr Insulin Aspart (Novolog) 15 unit SUBCUT ONETIME ONE Stop: 05/11/18 21:12 Last Admin: 05/11/18 21:26 Dose: 15 units Insulin Aspart (Novolog) 10 unit SUBCUT ONETIME ONE Stop: 05/11/18 23:01 Last Admin: 05/11/18 23:05 Dose: 10 units Insulin Aspart (Novolog) 10 unit SUBCUT ONETIME ONE Stop: 05/12/18 01:06 Last Admin: 05/12/18 01:09 Dose: 10 units Insulin Aspart (Novolog) 12 unit SUBCUT ONETIME ONE Stop: 05/14/18 08:57 Last Admin: 05/14/18 09:20 Dose: 10 units Morphine Sulfate (Morphine) 2 mg IVPUSH Q2H PRN PRN Reason: Pain (severe 7-10) Stop: 05/12/18 18:16 - Exam Lungs: Clear to Auscultation, Normal Respiratory Effort Cardiovascular: Regular Rate, Regular Rhythm - Problem List & Annotations (1) Failure to thrive SNOMED Code(s): 37053970 Code(s): MAJ4940 - Status: Acute Current Visit: Yes (2) Dehydration SNOMED Code(s): 71470126 Code(s): E86.0 - DEHYDRATION Status: Acute Current Visit: Yes (3) UTI, Urinary tract infectious disease SNOMED Code(s): 64219534 Code(s): N39.0 - URINARY TRACT INFECTION, SITE NOT SPECIFIED Status: Acute Current Visit: No (4) Unable to ambulate SNOMED Code(s): 661480757 Code(s): R26.2 - DIFFICULTY IN WALKING, NOT ELSEWHERE CLASSIFIED Status: Acute Current Visit: No (5) Uncontrolled diabetes mellitus SNOMED Code(s): 84130276, 034630767 Code(s): E11.65 - TYPE 2 DIABETES MELLITUS WITH HYPERGLYCEMIA Status: Acute Current Visit: No (6) Sacral decubitus ulcer SNOMED Code(s): 359639140 Code(s): L89.159 - PRESSURE ULCER OF SACRAL REGION, UNSPECIFIED STAGE Status: Chronic Current Visit: No Qualifiers: Pressure injury stage: stage 1 Qualified Code(s): L89.151 - Pressure ulcer of sacral region, stage 1 (7) HTN (hypertension) SNOMED Code(s): 16628942 Code(s): I10 - ESSENTIAL (PRIMARY) HYPERTENSION Status: Chronic Current Visit: No Qualifiers: Hypertension type: essential hypertension Qualified Code(s): I10 - Essential (primary) hypertension (8) DM type 2 (diabetes mellitus, type 2) SNOMED Code(s): 39325414 Code(s): E11.9 - TYPE 2 DIABETES MELLITUS WITHOUT COMPLICATIONS Status: Chronic Current Visit: No Qualifiers: Diabetes mellitus [facility] 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 Diabetes mellitus complication status: with skin complications Diabetes mellitus complication detail: with other skin ulcer Qualified Code(s): E11.622 - Type 2 diabetes mellitus with other skin ulcer; Z79.4 - exterminator (current) use of insulin - Problem List Review Problem List Initiated/Reviewed/Updated: Yes - My Orders Last 24 Hours: My Active Orders 05/13/18 13:30 Pantoprazole [ProTONIX] 40 mg PO ACBREAKFAST 05/14/18 09:00 Potassium Chloride [Klor-Con M20] 40 meq PO BID 05/14/18 11:24 DC [place] Catheter [Urinary Catheter Removal] [RC] Per Unit Routine - Plan Plan:: This is a 82-year-old female that is unable to communicate secondary to language barrier who is presenting due to failure to thrive, dehydration, uncontrolled type 2 diabetes with the elevated blood glucose level as well as ketones in the urine, a urine analysis indicating likely urinary tract infection. #1. Urinary analysis indicating a possible urinary tract infection- Wbc continues to be normal Urine cultures back indicating mix alissa Pt shall receive ciprofloxacin 400 mg every 24 hours renally dosed for total of 5 days. Currently has received 3 doses excluding today. #3. Hyperglycemia secondary to uncontrolled type 2 diabetes -Patient hyperglycemia stable continue with the current insulin sliding scale and long-acting insulin regimen and monitor glucose closely. #4. Failure to thrive secondary to poor living conditions with possible underlying dementia -awaiting placement to care home or high level of care outpt as she is unable to take care of her self. Anticipated length of stay will be greater than 2 midnights. As such the patient shall be admitted under inpatient status.
[2018-05-14] MEDS: Ciprofloxacin in D5W 400 MG in Premix Bag 1 BAG IV SCH ×2 (17:27)
[2018-05-14] MEDS: Insulin Detemir 100 Units/ML 3 ML Pen SUBCUT SCH (21:06)
[2018-05-15] MEDS: Phosphorus #1 250 MG Tab PO SCH ×4 (05:46→23:56)
[2018-05-15] MEDS: Heparin Sodium 5,000 Units/ML Vial SUBCUT SCH ×3 (05:46→22:34)
[2018-05-15] MEDS: Pantoprazole 40 MG Tab.CR PO SCH (06:37)
[2018-05-15] MEDS: Insulin Aspart 100 Units/ML 3 ML Pen SUBCUT SCH ×3 (07:35→17:52)
[2018-05-15] MEDS: Lisinopril 5 MG Tab PO SCH (09:29)
[2018-05-15] MEDS: Potassium Chloride 20 MEQ Tab.ER PO SCH ×2 (09:29→21:05)
[2018-05-15] MEDS: amLODIPine 5 MG Tab PO SCH (09:32)
--- NOTE | 2018-05-15 11:38 | PCM.PN ---
- General Info Date of Service: 05/15/18 Subjective Update: Pt is nonverbal secondary to language barrier and refusal to speak with senior mechanical technician. Does appear to be better from a visual inspection and from physical cues. - Patient Data Vitals - Most Recent: Last Vital Signs Temp 36.6 C 05/15/18 08:00 Pulse 72 05/15/18 08:00 Resp 16 05/15/18 08:00 BP 163/66 H 05/15/18 09:32 Pulse Ox 95 05/15/18 08:00 Weight - Most Recent: 45.359 kg I&O - Last 24 Hours: Intake & Output 05/14/18 05/15/18 05/15/18 22:59 06:59 14:59 Intake Total 1880 560 Output Total 550 Balance 1330 560 Lab Results Last 24 Hours: Laboratory Results - last 24 hr 05/14/18 05/14/18 05/15/18 Range/Units 17:03 20:57 06:35 POC Glucose 158 H 206 H 116 H (60-110) mg/dL Tho Results Last 24 Hours: Microbiology 05/11/18 15:05 Urine Culture - Final Urine, Catheterized MIXED ALISSA 1,000-10,000 CFU/ML Med Orders - Current: Current Medications Amlodipine Besylate (Norvasc) 5 mg PO DAILY [facility] Last Admin: 05/15/18 09:32 Dose: 5 mg Heparin Sodium (Porcine) (Heparin Sodium) 5,000 units SUBCUT Q8H [facility] Last Admin: 05/15/18 05:46 Dose: 5,000 units Ciprofloxacin/Dextrose 400 mg/ (Premix) 200 mls @ 200 mls/hr IV Q24H [facility] Last Admin: 05/14/18 17:27 Dose: 200 mls/hr Sodium Chloride (Normal Saline) 1,000 mls @ 150 mls/hr IV ASDIRECTED [facility] Last Admin: 05/14/18 00:32 Dose: 150 mls/hr Insulin Aspart (Novolog) 0 unit SUBCUT TIDAC [facility]; Protocol Last Admin: 05/15/18 07:35 Dose: Not Given Insulin Detemir (Levemir) 10 unit SUBCUT BEDTIME [facility] Last Admin: 05/14/18 21:06 Dose: 10 units Lisinopril (Prinivil) 5 mg PO DAILY [facility] Last Admin: 05/15/18 09:29 Dose: 5 mg Lorazepam (Ativan) 1 mg PO BEDTIME PRN PRN Reason: Anxiety Ondansetron HCl (Zofran) 4 mg IVPUSH Q4H PRN PRN Reason: Nausea/Vomiting Pantoprazole Sodium (Protonix) 40 mg PO ACBREAKFAST [facility] Last Admin: 05/15/18 06:37 Dose: 40 mg Potassium Chloride (Klor-Con M20) 40 meq PO BID [facility] Last Admin: 05/15/18 09:29 Dose: 40 meq Sodium Chloride (Saline Flush) 10 ml FLUSH ASDIRECTED PRN PRN Reason: Keep Vein Open Last Admin: 05/11/18 15:42 Dose: 10 ml Sodium Chloride (Saline Flush) 2.5 ml FLUSH ASDIRECTED PRN PRN Reason: Keep Vein Open Last Admin: 05/11/18 15:42 Dose: 2.5 ml Sodium Chloride (Saline Flush) 10 ml FLUSH ASDIRECTED PRN PRN Reason: Keep Vein Open Sodium Chloride (Saline Flush) 2.5 ml FLUSH ASDIRECTED PRN PRN Reason: Keep Vein Open Sodium Phosphate (Neutra-Phos) 250 mg PO QID [facility] Last Admin: 05/15/18 05:46 Dose: 250 mg Discontinued Medications Enoxaparin Sodium (Lovenox) 30 mg SUBCUT Q24H [facility] Last Admin: 05/11/18 19:42 Dose: 30 mg Sodium Chloride (Normal Saline) 1,000 mls @ 999 mls/hr IV .Bolus ONE Stop: 05/11/18 15:33 Last Admin: 05/11/18 15:15 Dose: 999 mls/hr Insulin Aspart (Novolog) 15 unit SUBCUT ONETIME ONE Stop: 05/11/18 21:12 Last Admin: 05/11/18 21:26 Dose: 15 units Insulin Aspart (Novolog) 10 unit SUBCUT ONETIME ONE Stop: 05/11/18 23:01 Last Admin: 05/11/18 23:05 Dose: 10 units Insulin Aspart (Novolog) 10 unit SUBCUT ONETIME ONE Stop: 05/12/18 01:06 Last Admin: 05/12/18 01:09 Dose: 10 units Insulin Aspart (Novolog) 12 unit SUBCUT ONETIME ONE Stop: 05/14/18 08:57 Last Admin: 02/15/19 09:20 Dose: 10 units Morphine Sulfate (Morphine) 2 mg IVPUSH Q2H PRN PRN Reason: Pain (severe 7-10) Stop: 05/12/18 18:16 - Exam General: Alert, Cooperative, No Acute Distress Lungs: Clear to Auscultation, Normal Respiratory Effort Cardiovascular: Regular Rate, Regular Rhythm GI/Abdominal Exam: Normal Bowel Sounds - Problem List & Annotations (1) Failure to thrive SNOMED Code(s): 50649678 Code(s): ZBH5643 - Status: Acute Current Visit: Yes (2) Dehydration SNOMED Code(s): 26406387 Code(s): E86.0 - DEHYDRATION Status: Acute Current Visit: Yes (3) UTI, Urinary tract infectious disease SNOMED Code(s): 92392865 Code(s): N39.0 - URINARY TRACT INFECTION, SITE NOT SPECIFIED Status: Acute Current Visit: No (4) Unable to ambulate SNOMED Code(s): 732581508 Code(s): R26.2 - DIFFICULTY IN WALKING, NOT ELSEWHERE CLASSIFIED Status: Acute Current Visit: No (5) Uncontrolled diabetes mellitus SNOMED Code(s): 63293163, 729990751 Code(s): E11.65 - TYPE 2 DIABETES MELLITUS WITH HYPERGLYCEMIA Status: Acute Current Visit: No (6) Sacral decubitus ulcer SNOMED Code(s): 606612506 Code(s): L89.159 - PRESSURE ULCER OF SACRAL REGION, UNSPECIFIED STAGE Status: Chronic Current Visit: No Qualifiers: Pressure injury stage: stage 1 Qualified Code(s): L89.151 - Pressure ulcer of sacral region, stage 1 (7) HTN (hypertension) SNOMED Code(s): 63869283 Code(s): I10 - ESSENTIAL (PRIMARY) HYPERTENSION Status: Chronic Current Visit: No Qualifiers: Hypertension type: essential hypertension Qualified Code(s): I10 - Essential (primary) hypertension (8) DM type 2 (diabetes mellitus, type 2) SNOMED Code(s): 19871975 Code(s): E11.9 - TYPE 2 DIABETES MELLITUS WITHOUT COMPLICATIONS Status: Chronic Current Visit: No Qualifiers: Diabetes mellitus superintendent container terminal insulin use: with nursing home use Diabetes mellitus complication status: with skin complications Diabetes mellitus complication detail: with other skin ulcer Qualified Code(s): E11.622 - Type 2 diabetes mellitus with other skin ulcer; Z79.4 - marine oil terminal superintendent (current) use of insulin - Problem List Review Problem List Initiated/Reviewed/Updated: Yes - My Orders Last 24 Hours: My Active Orders 05/14/18 11:24 DC [place] Catheter [Urinary Catheter Removal] [RC] Per Unit Routine - Plan Plan:: This is a 82-year-old female that is unable to communicate secondary to language barrier who is presenting due to failure to thrive, dehydration, uncontrolled type 2 diabetes with the elevated blood glucose level as well as ketones in the urine, a urine analysis indicating likely urinary tract infection. #1. Urinary analysis indicating a possible urinary tract infection- Wbc continues to be normal Urine cultures back indicating mix alissa Pt shall receive ciprofloxacin 400 mg every 24 hours renally dosed for total of 5 days. Currently has received 4 doses. Requires one more dose to complete 5 days of antibiotic therapy. #2. Hyperglycemia secondary to uncontrolled type 2 diabetes -Patient hyperglycemia stable continue with the current insulin sliding scale and long-acting insulin regimen and monitor glucose closely. #3. Age Onset Dementia -Based on speaking with care givers and family pt does have ongoing and worsening memory deficits, as well as declining executive function as she often gets lost, forgets to turn her oven off amongst other aspects. #4. Failure to thrive secondary to poor living conditions with possible underlying dementia -awaiting placement to [facility] or high level of care outpt as she is unable to take care of her self. - Pt's daughter has spoken with case management and states that she would not like her mom to go anywhere else aside from [place] due to distance and inability to visit. Shall await and see what Case Management and Social work can do for disposition. Anticipated length of stay will be greater than 2 midnights. As such the patient shall be admitted under inpatient status.
[2018-05-15] MEDS: Ciprofloxacin in D5W 400 MG in Premix Bag 1 BAG IV SCH ×2 (17:57)
[2018-05-15] MEDS: Docusate Sodium 100 MG Cap PO SCH (21:05)
[2018-05-15] MEDS: Insulin Detemir 100 Units/ML 3 ML Pen SUBCUT SCH (21:06)
[2018-05-16] MEDS: Bisacodyl 5 MG Tab PO PRN (03:22)
[2018-05-16] MEDS: Heparin Sodium 5,000 Units/ML Vial SUBCUT SCH ×3 (05:25→21:35)
[2018-05-16] MEDS: Phosphorus #1 250 MG Tab PO SCH ×4 (05:25→23:46)
[2018-05-16] MEDS: Pantoprazole 40 MG Tab.CR PO SCH (06:49)
[2018-05-16] MEDS: Insulin Aspart 100 Units/ML 3 ML Pen SUBCUT SCH ×3 (07:00→16:52)
[2018-05-16] MEDS: Lisinopril 5 MG Tab PO SCH (09:56)
[2018-05-16] MEDS: Potassium Chloride 20 MEQ Tab.ER PO SCH ×2 (09:57→21:35)
[2018-05-16] MEDS: amLODIPine 5 MG Tab PO SCH (09:57)
[2018-05-16] MEDS: Docusate Sodium 100 MG Cap PO SCH (09:57)
--- NOTE | 2018-05-16 13:46 | PCM.PN ---
- General Info Date of Service: 05/16/18 - Review of Systems Systems Review Comment:: smiling, no complaints - Patient Data Vitals - Most Recent: Last Vital Signs Temp 37.2 C 05/16/18 11:27 Pulse 71 05/16/18 11:27 Resp 20 05/16/18 11:27 BP 145/61 H 05/16/18 11:27 Pulse Ox 95 05/16/18 11:27 Weight - Most Recent: 45.359 kg I&O - Last 24 Hours: Intake & Output 05/15/18 05/16/18 05/16/18 22:59 06:59 14:59 Intake Total 1100 640 Output Total 300 Balance 1100 340 Lab Results Last 24 Hours: Laboratory Results - last 24 hr 05/15/18 05/15/18 05/15/18 Range/Units 11:39 16:31 20:52 Sodium (136-145) mmol/L Potassium (3.5-5.1) mmol/L Chloride (98-107) mmol/L Carbon Dioxide (21.0-32.0) mmol/L BUN (7.0-18.0) mg/dL Creatinine (0.6-1.0) mg/dL Est Cr Clr Drug Dosing mL/min Estimated GFR (MDRD) ml/min Glucose (74-106) mg/dL POC Glucose 253 H 241 H 291 H (60-110) mg/dL Calcium (8.5-10.1) mg/dL 05/15/18 05/16/18 Range/Units 21:00 06:41 Sodium 130 L (136-145) mmol/L Potassium 4.2 (3.5-5.1) mmol/L Chloride 98 (98-107) mmol/L Carbon Dioxide 23.0 (21.0-32.0) mmol/L BUN 21 H (7.0-18.0) mg/dL Creatinine 1.3 H (0.6-1.0) mg/dL Est Cr Clr Drug Dosing 23.48 mL/min Estimated GFR (MDRD) 39.1 ml/min Glucose 341 H (74-106) mg/dL POC Glucose 244 H (60-110) mg/dL Calcium 8.0 L (8.5-10.1) mg/dL Med Orders - Current: Current Medications Amlodipine Besylate (Norvasc) 5 mg PO DAILY [facility] Last Admin: 05/16/18 09:57 Dose: 5 mg Bisacodyl (Dulcolax) 10 mg PO DAILY PRN PRN Reason: Constipation Last Admin: 05/16/18 03:22 Dose: 10 mg Docusate Sodium (Colace) 100 mg PO DAILY [facility] Last Admin: 05/16/18 09:57 Dose: 100 mg Heparin Sodium (Porcine) (Heparin Sodium) 5,000 units SUBCUT Q8H [facility] Last Admin: 05/16/18 05:25 Dose: 5,000 units Ciprofloxacin/Dextrose 400 mg/ (Premix) 200 mls @ 200 mls/hr IV Q24H [facility] Last Admin: 05/15/18 17:57 Dose: 200 mls/hr Insulin Aspart (Novolog) 0 unit SUBCUT TIDAC [facility]; Protocol Last Admin: 05/16/18 12:15 Dose: 9 units Insulin Detemir (Levemir) 10 unit SUBCUT BEDTIME [facility] Last Admin: 05/15/18 21:06 Dose: 10 units Lisinopril (Prinivil) 5 mg PO DAILY [facility] Last Admin: 05/16/18 09:56 Dose: 5 mg Lorazepam (Ativan) 1 mg PO BEDTIME PRN PRN Reason: Anxiety Ondansetron HCl (Zofran) 4 mg IVPUSH Q4H PRN PRN Reason: Nausea/Vomiting Pantoprazole Sodium (Protonix) 40 mg PO ACBREAKFAST [facility] Last Admin: 05/16/18 06:49 Dose: 40 mg Potassium Chloride (Klor-Con M20) 40 meq PO BID [facility] Last Admin: 05/16/18 09:57 Dose: 40 meq Sodium Chloride (Saline Flush) 10 ml FLUSH ASDIRECTED PRN PRN Reason: Keep Vein Open Last Admin: 05/11/18 15:42 Dose: 10 ml Sodium Chloride (Saline Flush) 2.5 ml FLUSH ASDIRECTED PRN PRN Reason: Keep Vein Open Last Admin: 05/11/18 15:42 Dose: 2.5 ml Sodium Chloride (Saline Flush) 10 ml FLUSH ASDIRECTED PRN PRN Reason: Keep Vein Open Sodium Chloride (Saline Flush) 2.5 ml FLUSH ASDIRECTED PRN PRN Reason: Keep Vein Open Sodium Phosphate (Neutra-Phos) 250 mg PO QID [facility] Last Admin: 05/16/18 12:10 Dose: 250 mg Discontinued Medications Enoxaparin Sodium (Lovenox) 30 mg SUBCUT Q24H [facility] Last Admin: 05/11/18 19:42 Dose: 30 mg Sodium Chloride (Normal Saline) 1,000 mls @ 999 mls/hr IV .Bolus ONE Stop: 05/11/18 15:33 Last Admin: 05/11/18 15:15 Dose: 999 mls/hr Sodium Chloride (Normal Saline) 1,000 mls @ 150 mls/hr IV ASDIRECTED [facility] Last Admin: 05/14/18 00:32 Dose: 150 mls/hr Insulin Aspart (Novolog) 15 unit SUBCUT ONETIME ONE Stop: 05/11/18 21:12 Last Admin: 05/11/18 21:26 Dose: 15 units Insulin Aspart (Novolog) 10 unit SUBCUT ONETIME ONE Stop: 05/11/18 23:01 Last Admin: 05/11/18 23:05 Dose: 10 units Insulin Aspart (Novolog) 10 unit SUBCUT ONETIME ONE Stop: 05/12/18 01:06 Last Admin: 05/12/18 01:09 Dose: 10 units Insulin Aspart (Novolog) 12 unit SUBCUT ONETIME ONE Stop: 05/14/18 08:57 Last Admin: 05/14/18 09:20 Dose: 10 units Morphine Sulfate (Morphine) 2 mg IVPUSH Q2H PRN PRN Reason: Pain (severe 7-10) Stop: 05/12/18 18:16 - Exam General: Cooperative, No Acute Distress Lungs: Clear to Auscultation, Normal Respiratory Effort Cardiovascular: Regular Rate, Regular Rhythm GI/Abdominal Exam: Soft, Non-Tender Extremities: No Pedal Edema - Problem List Review Problem List Initiated/Reviewed/Updated: Yes - Plan Plan:: This is a 82-year-old female with dementia that is unable to communicate secondary to language barrier who is presenting due to failure to thrive, dehydration. Patient was rehydrated and treated for UTI. Discharge is now pending placement.
[2018-05-16] MEDS: Ciprofloxacin in D5W 400 MG in Premix Bag 1 BAG IV SCH ×2 (17:25)
[2018-05-16] MEDS: Insulin Detemir 100 Units/ML 3 ML Pen SUBCUT SCH (21:36)
[2018-05-17] MEDS: Heparin Sodium 5,000 Units/ML Vial SUBCUT SCH ×3 (05:12→21:18)
[2018-05-17] MEDS: Phosphorus #1 250 MG Tab PO SCH ×3 (05:12→17:25)
[2018-05-17] MEDS: Pantoprazole 40 MG Tab.CR PO SCH (07:00)
[2018-05-17] MEDS: Insulin Aspart 100 Units/ML 3 ML Pen SUBCUT SCH ×3 (07:50→17:26)
[2018-05-17] MEDS: Docusate Sodium 100 MG Cap PO SCH (08:06)
[2018-05-17] MEDS: Potassium Chloride 20 MEQ Tab.ER PO SCH (08:06)
[2018-05-17] MEDS: amLODIPine 5 MG Tab PO SCH (08:07)
[2018-05-17] MEDS: Lisinopril 5 MG Tab PO SCH (08:07)
--- NOTE | 2018-05-17 12:46 | PCM.PN ---
- General Info Date of Service: 05/17/18 Subjective Update: Patient appears to be doing well, there is a language barrier and so verbal communication is limited however physical prompts does show that the patient appears to be doing well. - Patient Data Vitals - Most Recent: Last Vital Signs Temp 36.8 C 05/17/18 08:00 Pulse 62 05/17/18 08:00 Resp 16 05/17/18 08:00 BP 131/78 05/17/18 08:07 Pulse Ox 95 05/17/18 09:21 Weight - Most Recent: 45.359 kg I&O - Last 24 Hours: Intake & Output 05/16/18 05/17/18 05/17/18 22:59 06:59 14:59 Intake Total 400 560 Output Total 1125 300 Balance -725 260 Lab Results Last 24 Hours: Laboratory Results - last 24 hr 05/16/18 05/16/18 05/16/18 Range/Units 16:49 18:08 21:33 POC Glucose 228 H 213 H 320 H (60-110) mg/dL 05/17/18 Range/Units 06:28 POC Glucose 186 H (60-110) mg/dL Med Orders - Current: Current Medications Amlodipine Besylate (Norvasc) 5 mg PO DAILY [facility] Last Admin: 05/17/18 08:07 Dose: 5 mg Bisacodyl (Dulcolax) 10 mg PO DAILY PRN PRN Reason: Constipation Last Admin: 05/16/18 03:22 Dose: 10 mg Docusate Sodium (Colace) 100 mg PO DAILY [facility] Last Admin: 05/17/18 08:06 Dose: 100 mg Heparin Sodium (Porcine) (Heparin Sodium) 5,000 units SUBCUT Q8H [facility] Last Admin: 05/17/18 05:12 Dose: 5,000 units Ciprofloxacin/Dextrose 400 mg/ (Premix) 200 mls @ 200 mls/hr IV Q24H [facility] Last Admin: 05/16/18 17:25 Dose: 200 mls/hr Insulin Aspart (Novolog) 0 unit SUBCUT TIDAC [facility]; Protocol Last Admin: 05/17/18 07:50 Dose: 3 units Insulin Detemir (Levemir) 10 unit SUBCUT BEDTIME [facility] Last Admin: 05/16/18 21:36 Dose: 10 units Lisinopril (Prinivil) 5 mg PO DAILY [facility] Last Admin: 05/17/18 08:07 Dose: 5 mg Lorazepam (Ativan) 1 mg PO BEDTIME PRN PRN Reason: Anxiety Ondansetron HCl (Zofran) 4 mg IVPUSH Q4H PRN PRN Reason: Nausea/Vomiting Potassium Chloride (Klor-Con M20) 40 meq PO BID [facility] Last Admin: 05/17/18 08:06 Dose: 40 meq Sodium Chloride (Saline Flush) 10 ml FLUSH ASDIRECTED PRN PRN Reason: Keep Vein Open Last Admin: 05/11/18 15:42 Dose: 10 ml Sodium Chloride (Saline Flush) 2.5 ml FLUSH ASDIRECTED PRN PRN Reason: Keep Vein Open Last Admin: 05/11/18 15:42 Dose: 2.5 ml Sodium Chloride (Saline Flush) 10 ml FLUSH ASDIRECTED PRN PRN Reason: Keep Vein Open Sodium Chloride (Saline Flush) 2.5 ml FLUSH ASDIRECTED PRN PRN Reason: Keep Vein Open Sodium Phosphate (Neutra-Phos) 250 mg PO QID [facility] Last Admin: 05/17/18 05:12 Dose: 250 mg Discontinued Medications Enoxaparin Sodium (Lovenox) 30 mg SUBCUT Q24H [facility] Last Admin: 05/11/18 19:42 Dose: 30 mg Sodium Chloride (Normal Saline) 1,000 mls @ 999 mls/hr IV .Bolus ONE Stop: 05/11/18 15:33 Last Admin: 05/11/18 15:15 Dose: 999 mls/hr Sodium Chloride (Normal Saline) 1,000 mls @ 150 mls/hr IV ASDIRECTED [facility] Last Admin: 05/14/18 00:32 Dose: 150 mls/hr Insulin Aspart (Novolog) 15 unit SUBCUT ONETIME ONE Stop: 05/11/18 21:12 Last Admin: 05/11/18 21:26 Dose: 15 units Insulin Aspart (Novolog) 10 unit SUBCUT ONETIME ONE Stop: 05/11/18 23:01 Last Admin: 05/11/18 23:05 Dose: 10 units Insulin Aspart (Novolog) 10 unit SUBCUT ONETIME ONE Stop: 05/12/18 01:06 Last Admin: 05/12/18 01:09 Dose: 10 units Insulin Aspart (Novolog) 12 unit SUBCUT ONETIME ONE Stop: 05/14/18 08:57 Last Admin: 05/14/18 09:20 Dose: 10 units Morphine Sulfate (Morphine) 2 mg IVPUSH Q2H PRN PRN Reason: Pain (severe 7-10) Stop: 05/12/18 18:16 Pantoprazole Sodium (Protonix) 40 mg PO ACBREAKFAST [facility] Last Admin: 05/17/18 07:00 Dose: 40 mg - Exam General: Alert, Cooperative Lungs: Clear to Auscultation, Normal Respiratory Effort Cardiovascular: Regular Rate, Regular Rhythm - Problem List & Annotations (1) Failure to thrive SNOMED Code(s): 50039644 Code(s): YHY7634 - Status: Acute Current Visit: Yes (2) Dehydration SNOMED Code(s): 65469279 Code(s): E86.0 - DEHYDRATION Status: Acute Current Visit: Yes (3) UTI, Urinary tract infectious disease SNOMED Code(s): 94702733 Code(s): N39.0 - URINARY TRACT INFECTION, SITE NOT SPECIFIED Status: Acute Current Visit: No (4) Unable to ambulate SNOMED Code(s): 033613106 Code(s): R26.2 - DIFFICULTY IN WALKING, NOT ELSEWHERE CLASSIFIED Status: Acute Current Visit: No (5) Uncontrolled diabetes mellitus SNOMED Code(s): 57067223, 748496717 Code(s): E11.65 - TYPE 2 DIABETES MELLITUS WITH HYPERGLYCEMIA Status: Acute Current Visit: No (6) Sacral decubitus ulcer SNOMED Code(s): 936226639 Code(s): L89.159 - PRESSURE ULCER OF SACRAL REGION, UNSPECIFIED STAGE Status: Chronic Current Visit: No Qualifiers: Pressure injury stage: stage 1 Qualified Code(s): L89.151 - Pressure ulcer of sacral region, stage 1 (7) HTN (hypertension) SNOMED Code(s): 06461697 Code(s): I10 - ESSENTIAL (PRIMARY) HYPERTENSION Status: Chronic Current Visit: No Qualifiers: Hypertension type: essential hypertension Qualified Code(s): I10 - Essential (primary) hypertension (8) DM type 2 (diabetes mellitus, type 2) SNOMED Code(s): 36950453 Code(s): E11.9 - TYPE 2 DIABETES MELLITUS WITHOUT COMPLICATIONS Status: Chronic Current Visit: No Qualifiers: Diabetes mellitus fpc insulin use: with fpc use Diabetes mellitus complication status: with skin complications Diabetes mellitus complication detail: with other skin ulcer Qualified Code(s): E11.622 - Type 2 diabetes mellitus with other skin ulcer; Z79.4 - longterm (current) use of insulin - Problem List Review Problem List Initiated/Reviewed/Updated: Yes - Plan Plan:: This is a 82-year-old female with dementia that is unable to communicate secondary to language barrier who is presenting due to failure to thrive, dehydration. Patient was rehydrated and treated for UTI. -She has completed her antibiotic treatment for her urinary tract infection, her hypokalemia has resolved -Presently due to her age onset dementia and failure to thrive awaiting disposition prior to discharge -Shall discuss with case management and social work to assess where the patient should be placed whether the patient and family can have extra support at home that can take care of this patient prior to discharge.
[2018-05-17] MEDS: Ciprofloxacin in D5W 400 MG in Premix Bag 1 BAG IV SCH ×2 (17:22)
[2018-05-17] MEDS: Insulin Detemir 100 Units/ML 3 ML Pen SUBCUT SCH (21:19)
[2018-05-18] MEDS: Phosphorus #1 250 MG Tab PO SCH ×5 (01:00→23:23)
[2018-05-18] MEDS: LORazepam 1 MG Tab PO PRN (02:47)
[2018-05-18] MEDS: Heparin Sodium 5,000 Units/ML Vial SUBCUT SCH ×3 (06:46→21:59)
[2018-05-18] MEDS: Insulin Aspart 100 Units/ML 3 ML Pen SUBCUT SCH ×3 (07:59→18:06)
[2018-05-18] MEDS: amLODIPine 5 MG Tab PO SCH (09:13)
[2018-05-18] MEDS: Docusate Sodium 100 MG Cap PO SCH (09:13)
[2018-05-18] MEDS: Lisinopril 5 MG Tab PO SCH (09:13)
--- NOTE | 2018-05-18 12:38 | PCM.PN ---
- General Info Date of Service: 05/18/18 Subjective Update: Continues to be stable awaiting [place] [facility]. - Patient Data Vitals - Most Recent: Last Vital Signs Temp 36.7 C 05/18/18 11:24 Pulse 73 05/18/18 11:24 Resp 16 05/18/18 11:24 BP 163/72 H 05/18/18 11:24 Pulse Ox 97 05/18/18 11:24 Weight - Most Recent: 45.359 kg I&O - Last 24 Hours: Intake & Output 05/17/18 05/18/18 05/18/18 22:59 06:59 14:59 Intake Total 600 400 Output Total 400 700 Balance 200 -300 Lab Results Last 24 Hours: Laboratory Results - last 24 hr 05/17/18 05/17/18 05/17/18 Range/Units 12:12 16:21 21:17 POC Glucose 227 H 213 H 278 H (60-110) mg/dL 05/18/18 05/18/18 Range/Units 06:44 11:01 POC Glucose 125 H 252 H (60-110) mg/dL Med Orders - Current: Current Medications Amlodipine Besylate (Norvasc) 5 mg PO DAILY [facility] Last Admin: 05/18/18 09:13 Dose: 5 mg Bisacodyl (Dulcolax) 10 mg PO DAILY PRN PRN Reason: Constipation Last Admin: 05/16/18 03:22 Dose: 10 mg Docusate Sodium (Colace) 100 mg PO DAILY [facility] Last Admin: 05/18/18 09:13 Dose: 100 mg Heparin Sodium (Porcine) (Heparin Sodium) 5,000 units SUBCUT Q8H [facility] Last Admin: 05/18/18 06:46 Dose: 5,000 units Ciprofloxacin/Dextrose 400 mg/ (Premix) 200 mls @ 200 mls/hr IV Q24H [facility] Last Admin: 05/17/18 17:22 Dose: 200 mls/hr Insulin Aspart (Novolog) 0 unit SUBCUT TIDAC [facility]; Protocol Last Admin: 05/18/18 07:59 Dose: Not Given Insulin Detemir (Levemir) 10 unit SUBCUT BEDTIME [facility] Last Admin: 05/17/18 21:19 Dose: 10 units Lisinopril (Prinivil) 5 mg PO DAILY [facility] Last Admin: 05/18/18 09:13 Dose: 5 mg Lorazepam (Ativan) 1 mg PO BEDTIME PRN PRN Reason: Anxiety Last Admin: 05/18/18 02:47 Dose: 1 mg Ondansetron HCl (Zofran) 4 mg IVPUSH Q4H PRN PRN Reason: Nausea/Vomiting Sodium Chloride (Saline Flush) 10 ml FLUSH ASDIRECTED PRN PRN Reason: Keep Vein Open Last Admin: 05/11/18 15:42 Dose: 10 ml Sodium Chloride (Saline Flush) 2.5 ml FLUSH ASDIRECTED PRN PRN Reason: Keep Vein Open Last Admin: 05/11/18 15:42 Dose: 2.5 ml Sodium Chloride (Saline Flush) 10 ml FLUSH ASDIRECTED PRN PRN Reason: Keep Vein Open Sodium Chloride (Saline Flush) 2.5 ml FLUSH ASDIRECTED PRN PRN Reason: Keep Vein Open Sodium Phosphate (Neutra-Phos) 250 mg PO QID [facility] Last Admin: 05/18/18 11:51 Dose: 250 mg Discontinued Medications Enoxaparin Sodium (Lovenox) 30 mg SUBCUT Q24H [facility] Last Admin: 05/11/18 19:42 Dose: 30 mg Sodium Chloride (Normal Saline) 1,000 mls @ 999 mls/hr IV .Bolus ONE Stop: 05/11/18 15:33 Last Admin: 05/11/18 15:15 Dose: 999 mls/hr Sodium Chloride (Normal Saline) 1,000 mls @ 150 mls/hr IV ASDIRECTED [facility] Last Admin: 05/14/18 00:32 Dose: 150 mls/hr Insulin Aspart (Novolog) 15 unit SUBCUT ONETIME ONE Stop: 05/11/18 21:12 Last Admin: 05/11/18 21:26 Dose: 15 units Insulin Aspart (Novolog) 10 unit SUBCUT ONETIME ONE Stop: 05/11/18 23:01 Last Admin: 05/11/18 23:05 Dose: 10 units Insulin Aspart (Novolog) 10 unit SUBCUT ONETIME ONE Stop: 05/12/18 01:06 Last Admin: 05/12/18 01:09 Dose: 10 units Insulin Aspart (Novolog) 12 unit SUBCUT ONETIME ONE Stop: 05/14/18 08:57 Last Admin: 05/14/18 09:20 Dose: 10 units Morphine Sulfate (Morphine) 2 mg IVPUSH Q2H PRN PRN Reason: Pain (severe 7-10) Stop: 05/12/18 18:16 Pantoprazole Sodium (Protonix) 40 mg PO ACBREAKFAST [facility] Last Admin: 05/17/18 07:00 Dose: 40 mg Potassium Chloride (Klor-Con M20) 40 meq PO BID [facility] Last Admin: 05/17/18 08:06 Dose: 40 meq - Exam Lungs: Clear to Auscultation, Normal Respiratory Effort Cardiovascular: Regular Rate, Regular Rhythm GI/Abdominal Exam: Normal Bowel Sounds, Non-Tender - Problem List & Annotations (1) Failure to thrive SNOMED Code(s): 22771212 Code(s): PCL9239 - Status: Acute Current Visit: Yes (2) Dehydration SNOMED Code(s): 74801958 Code(s): E86.0 - DEHYDRATION Status: Resolved Current Visit: Yes (3) UTI, Urinary tract infectious disease SNOMED Code(s): 50577289 Code(s): N39.0 - URINARY TRACT INFECTION, SITE NOT SPECIFIED Status: Resolved Current Visit: No (4) Unable to ambulate SNOMED Code(s): 157029238 Code(s): R26.2 - DIFFICULTY IN WALKING, NOT ELSEWHERE CLASSIFIED Status: Acute Current Visit: No (5) Uncontrolled diabetes mellitus SNOMED Code(s): 93436760, 335102132 Code(s): E11.65 - TYPE 2 DIABETES MELLITUS WITH HYPERGLYCEMIA Status: Acute Current Visit: No (6) Sacral decubitus ulcer SNOMED Code(s): 747385982 Code(s): L89.159 - PRESSURE ULCER OF SACRAL REGION, UNSPECIFIED STAGE Status: Chronic Current Visit: No Qualifiers: Pressure injury stage: stage 1 Qualified Code(s): L89.151 - Pressure ulcer of sacral region, stage 1 (7) HTN (hypertension) SNOMED Code(s): 06726222 Code(s): I10 - ESSENTIAL (PRIMARY) HYPERTENSION Status: Chronic Current Visit: No Qualifiers: Hypertension type: essential hypertension Qualified Code(s): I10 - Essential (primary) hypertension (8) DM type 2 (diabetes mellitus, type 2) SNOMED Code(s): 99017441 Code(s): E11.9 - TYPE 2 DIABETES MELLITUS WITHOUT COMPLICATIONS Status: Chronic Current Visit: No Qualifiers: Diabetes mellitus agriculture instructor insulin use: with agriculture instructor use Diabetes mellitus complication status: with skin complications Diabetes mellitus complication detail: with other skin ulcer Qualified Code(s): E11.622 - Type 2 diabetes mellitus with other skin ulcer; Z79.4 - long-term (current) use of insulin - Problem List Review Problem List Initiated/Reviewed/Updated: Yes - Plan Plan:: This is a 82-year-old female with dementia that is unable to communicate secondary to language barrier who is presenting due to failure to thrive, dehydration. Patient was rehydrated and treated for UTI. -She has completed her antibiotic treatment for her urinary tract infection, her hypokalemia has resolved -Presently due to her age onset dementia and failure to thrive awaiting disposition prior to discharge -Case Management working on placing pt in [facility].
[2018-05-18] MEDS: Ciprofloxacin in D5W 400 MG in Premix Bag 1 BAG IV SCH ×4 (17:41→18:30)
[2018-05-18] MEDS: Insulin Detemir 100 Units/ML 3 ML Pen SUBCUT SCH (21:58)
[2018-05-19] MEDS: Heparin Sodium 5,000 Units/ML Vial SUBCUT SCH ×3 (06:38→22:12)
[2018-05-19] MEDS: Phosphorus #1 250 MG Tab PO SCH ×3 (06:40→17:59)
[2018-05-19] MEDS: Insulin Aspart 100 Units/ML 3 ML Pen SUBCUT SCH ×3 (06:58→17:58)
--- NOTE | 2018-05-19 08:30 | PCM.PN ---
- General Info Date of Service: 05/19/18 Subjective Update: Stable - Patient Data Vitals - Most Recent: Last Vital Signs Temp 37.1 C 05/19/18 04:00 Pulse 92 05/19/18 04:00 Resp 20 05/19/18 04:00 BP 161/63 H 05/19/18 04:00 Pulse Ox 97 05/19/18 04:00 Weight - Most Recent: 45.359 kg I&O - Last 24 Hours: Intake & Output 05/18/18 05/19/18 05/19/18 22:59 06:59 14:59 Intake Total 540 480 Output Total 700 775 Balance -160 -295 Lab Results Last 24 Hours: Laboratory Results - last 24 hr 05/18/18 05/18/18 05/18/18 Range/Units 11:01 18:04 20:29 POC Glucose 252 H 314 H 387 H (60-110) mg/dL 05/19/18 Range/Units 05:59 POC Glucose 249 H (60-110) mg/dL Med Orders - Current: Current Medications Amlodipine Besylate (Norvasc) 5 mg PO DAILY [facility] Last Admin: 05/18/18 09:13 Dose: 5 mg Bisacodyl (Dulcolax) 10 mg PO DAILY PRN PRN Reason: Constipation Last Admin: 05/16/18 03:22 Dose: 10 mg Docusate Sodium (Colace) 100 mg PO DAILY [facility] Last Admin: 05/18/18 09:13 Dose: 100 mg Heparin Sodium (Porcine) (Heparin Sodium) 5,000 units SUBCUT Q8H [facility] Last Admin: 05/19/18 06:38 Dose: 5,000 units Insulin Aspart (Novolog) 0 unit SUBCUT TIDAC [facility]; Protocol Last Admin: 05/19/18 06:58 Dose: 6 units Insulin Detemir (Levemir) 10 unit SUBCUT BEDTIME [facility] Last Admin: 05/18/18 21:58 Dose: 10 units Lisinopril (Prinivil) 5 mg PO DAILY [facility] Last Admin: 05/18/18 09:13 Dose: 5 mg Lorazepam (Ativan) 1 mg PO BEDTIME PRN PRN Reason: Anxiety Last Admin: 05/18/18 02:47 Dose: 1 mg Ondansetron HCl (Zofran) 4 mg IVPUSH Q4H PRN PRN Reason: Nausea/Vomiting Sodium Chloride (Saline Flush) 10 ml FLUSH ASDIRECTED PRN PRN Reason: Keep Vein Open Last Admin: 05/11/18 15:42 Dose: 10 ml Sodium Chloride (Saline Flush) 2.5 ml FLUSH ASDIRECTED PRN PRN Reason: Keep Vein Open Last Admin: 05/11/18 15:42 Dose: 2.5 ml Sodium Chloride (Saline Flush) 10 ml FLUSH ASDIRECTED PRN PRN Reason: Keep Vein Open Sodium Chloride (Saline Flush) 2.5 ml FLUSH ASDIRECTED PRN PRN Reason: Keep Vein Open Sodium Phosphate (Neutra-Phos) 250 mg PO QID [facility] Last Admin: 05/19/18 06:40 Dose: 250 mg Discontinued Medications Enoxaparin Sodium (Lovenox) 30 mg SUBCUT Q24H [facility] Last Admin: 05/11/18 19:42 Dose: 30 mg Sodium Chloride (Normal Saline) 1,000 mls @ 999 mls/hr IV .Bolus ONE Stop: 05/11/18 15:33 Last Admin: 05/11/18 15:15 Dose: 999 mls/hr Ciprofloxacin/Dextrose 400 mg/ (Premix) 200 mls @ 200 mls/hr IV Q24H [facility] Last Admin: 05/18/18 18:30 Dose: Not Given Sodium Chloride (Normal Saline) 1,000 mls @ 150 mls/hr IV ASDIRECTED [facility] Last Admin: 05/14/18 00:32 Dose: 150 mls/hr Insulin Aspart (Novolog) 15 unit SUBCUT ONETIME ONE Stop: 05/11/18 21:12 Last Admin: 05/11/18 21:26 Dose: 15 units Insulin Aspart (Novolog) 10 unit SUBCUT ONETIME ONE Stop: 05/11/18 23:01 Last Admin: 05/11/18 23:05 Dose: 10 units Insulin Aspart (Novolog) 10 unit SUBCUT ONETIME ONE Stop: 05/12/18 01:06 Last Admin: 05/12/18 01:09 Dose: 10 units Insulin Aspart (Novolog) 12 unit SUBCUT ONETIME ONE Stop: 05/14/18 08:57 Last Admin: 05/14/18 09:20 Dose: 10 units Morphine Sulfate (Morphine) 2 mg IVPUSH Q2H PRN PRN Reason: Pain (severe 7-10) Stop: 05/12/18 18:16 Pantoprazole Sodium (Protonix) 40 mg PO ACBREAKFAST [facility] Last Admin: 05/17/18 07:00 Dose: 40 mg Potassium Chloride (Klor-Con M20) 40 meq PO BID [facility] Last Admin: 05/17/18 08:06 Dose: 40 meq - Exam Lungs: Clear to Auscultation, Normal Respiratory Effort Cardiovascular: Regular Rate, Regular Rhythm - Problem List & Annotations (1) Failure to thrive SNOMED Code(s): 03885329 Code(s): SSG5468 - Status: Acute Current Visit: Yes (2) Dehydration SNOMED Code(s): 88472704 Code(s): E86.0 - DEHYDRATION Status: Resolved Current Visit: Yes (3) Unable to ambulate SNOMED Code(s): 795935801 Code(s): R26.2 - DIFFICULTY IN WALKING, NOT ELSEWHERE CLASSIFIED Status: Acute Current Visit: No (4) Uncontrolled diabetes mellitus SNOMED Code(s): 23023257, 757472593 Code(s): E11.65 - TYPE 2 DIABETES MELLITUS WITH HYPERGLYCEMIA Status: Acute Current Visit: No (5) Sacral decubitus ulcer SNOMED Code(s): 046368767 Code(s): L89.159 - PRESSURE ULCER OF SACRAL REGION, UNSPECIFIED STAGE Status: Chronic Current Visit: No Qualifiers: Pressure injury stage: stage 1 Qualified Code(s): L89.151 - Pressure ulcer of sacral region, stage 1 (6) HTN (hypertension) SNOMED Code(s): 67022298 Code(s): I10 - ESSENTIAL (PRIMARY) HYPERTENSION Status: Chronic Current Visit: No Qualifiers: Hypertension type: essential hypertension Qualified Code(s): I10 - Essential (primary) hypertension (7) DM type 2 (diabetes mellitus, type 2) SNOMED Code(s): 06633408 Code(s): E11.9 - TYPE 2 DIABETES MELLITUS WITHOUT COMPLICATIONS Status: Chronic Current Visit: No Qualifiers: 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 insulin use: with mcc use Diabetes mellitus complication status: with skin complications Diabetes mellitus complication detail: with other skin ulcer Qualified Code(s): E11.622 - Type 2 diabetes mellitus with other skin ulcer; 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 Patient was rehydrated and treated for UTI. -Case Management working on placing pt in [facility]. Awaiting Placement decision as far as disposition is concerned.
[2018-05-19] MEDS: Lisinopril 5 MG Tab PO SCH (10:15)
[2018-05-19] MEDS: Docusate Sodium 100 MG Cap PO SCH (10:17)
[2018-05-19] MEDS: amLODIPine 5 MG Tab PO SCH (10:17)
[2018-05-19] MEDS: Insulin Detemir 100 Units/ML 3 ML Pen SUBCUT SCH (22:00)
[2018-05-20] MEDS: Phosphorus #1 250 MG Tab PO SCH ×5 (05:43→23:22)
[2018-05-20] MEDS: Heparin Sodium 5,000 Units/ML Vial SUBCUT SCH ×3 (05:43→21:29)
[2018-05-20] MEDS: Insulin Aspart 100 Units/ML 3 ML Pen SUBCUT SCH ×3 (07:51→17:55)
[2018-05-20] MEDS: amLODIPine 5 MG Tab PO SCH (08:43)
[2018-05-20] MEDS: Lisinopril 5 MG Tab PO SCH (08:44)
[2018-05-20] MEDS: Docusate Sodium 100 MG Cap PO SCH (08:44)
--- NOTE | 2018-05-20 12:07 | PCM.PN ---
- General Info Date of Service: 05/20/18 Subjective Update: stable - Patient Data Vitals - Most Recent: Last Vital Signs Temp 36.9 C 05/20/18 08:00 Pulse 79 05/20/18 08:00 Resp 18 05/20/18 08:00 BP 150/66 H 05/20/18 08:44 Pulse Ox 95 05/20/18 08:00 Weight - Most Recent: 45.359 kg I&O - Last 24 Hours: Intake & Output 05/19/18 05/20/18 05/20/18 22:59 06:59 14:59 Intake Total 820 200 Balance 820 200 Lab Results Last 24 Hours: Laboratory Results - last 24 hr 05/19/18 05/19/18 05/20/18 Range/Units 16:34 22:10 05:00 WBC 10.73 (4.0-11.0) K/uL RBC 2.91 L (4.30-5.90) M/uL Hgb 8.9 L (12.0-16.0) g/dL Hct 26.5 L (36.0-46.0) % MCV 91.1 (80.0-98.0) fL MCH 30.6 (27.0-32.0) pg MCHC 33.6 (31.0-37.0) g/dL RDW Std Deviation 43.7 (28.0-62.0) fl RDW Coeff of Dipti 13 (11.0-15.0) % Plt Count 184 (150-400) K/uL MPV 9.40 (7.40-12.00) fL Neut % (Auto) 88.1 H (48.0-80.0) % Lymph % (Auto) 7.5 L (16.0-40.0) % [place] % (Auto) 3.6 (0.0-15.0) % Eos % (Auto) 0.7 (0.0-7.0) % Baso % (Auto) 0.1 (0.0-1.5) % Neut # (Auto) 9.4 H (1.4-5.7) K/uL Lymph # (Auto) 0.8 (0.6-2.4) K/uL [place] # (Auto) 0.4 (0.0-0.8) K/uL Eos # (Auto) 0.1 (0.0-0.7) K/uL Baso # (Auto) 0.0 (0.0-0.1) K/uL Nucleated RBC % 0.0 /100WBC Nucleated RBCs # 0 K/uL Sodium (136-145) mmol/L Potassium (3.5-5.1) mmol/L Chloride (98-107) mmol/L Carbon Dioxide (21.0-32.0) mmol/L BUN (7.0-18.0) mg/dL Creatinine (0.6-1.0) mg/dL Est Cr Clr Drug Dosing mL/min Estimated GFR (MDRD) ml/min Glucose (74-106) mg/dL POC Glucose 272 H 187 H (60-110) mg/dL Calcium (8.5-10.1) mg/dL 05/20/18 05/20/18 05/20/18 Range/Units 05:00 05:48 11:22 WBC (4.0-11.0) K/uL RBC (4.30-5.90) M/uL Hgb (12.0-16.0) g/dL Hct (36.0-46.0) % MCV (80.0-98.0) fL MCH (27.0-32.0) pg MCHC (31.0-37.0) g/dL RDW Std Deviation (28.0-62.0) fl RDW Coeff of Dipti (11.0-15.0) % Plt Count (150-400) K/uL MPV (7.40-12.00) fL Neut % (Auto) (48.0-80.0) % Lymph % (Auto) (16.0-40.0) % [place] % (Auto) (0.0-15.0) % Eos % (Auto) (0.0-7.0) % Baso % (Auto) (0.0-1.5) % Neut # (Auto) (1.4-5.7) K/uL Lymph # (Auto) (0.6-2.4) K/uL [place] # (Auto) (0.0-0.8) K/uL Eos # (Auto) (0.0-0.7) K/uL Baso # (Auto) (0.0-0.1) K/uL Nucleated RBC % /100WBC Nucleated RBCs # K/uL Sodium 134 L (136-145) mmol/L Potassium 3.7 (3.5-5.1) mmol/L Chloride 101 (98-107) mmol/L Carbon Dioxide 28.4 (21.0-32.0) mmol/L BUN 16 (7.0-18.0) mg/dL Creatinine 1.1 H (0.6-1.0) mg/dL Est Cr Clr Drug Dosing 27.75 mL/min Estimated GFR (MDRD) 47.4 ml/min Glucose 186 H (74-106) mg/dL POC Glucose 192 H 243 H (60-110) mg/dL Calcium 7.6 L (8.5-10.1) mg/dL Med Orders - Current: Current Medications Amlodipine Besylate (Norvasc) 5 mg PO DAILY [facility] Last Admin: 05/20/18 08:43 Dose: 5 mg Bisacodyl (Dulcolax) 10 mg PO DAILY PRN PRN Reason: Constipation Last Admin: 05/16/18 03:22 Dose: 10 mg Docusate Sodium (Colace) 100 mg PO DAILY [facility] Last Admin: 05/20/18 08:44 Dose: 100 mg Heparin Sodium (Porcine) (Heparin Sodium) 5,000 units SUBCUT Q8H [facility] Last Admin: 05/20/18 05:43 Dose: 5,000 units Insulin Aspart (Novolog) 0 unit SUBCUT TIDAC [facility]; Protocol Last Admin: 05/20/18 07:51 Dose: 3 units Insulin Detemir (Levemir) 10 unit SUBCUT BEDTIME [facility] Last Admin: 05/19/18 22:00 Dose: 10 units Lisinopril (Prinivil) 5 mg PO DAILY [facility] Last Admin: 05/20/18 08:44 Dose: 5 mg Lorazepam (Ativan) 1 mg PO BEDTIME PRN PRN Reason: Anxiety Last Admin: 05/18/18 02:47 Dose: 1 mg Ondansetron HCl (Zofran) 4 mg IVPUSH Q4H PRN PRN Reason: Nausea/Vomiting Sodium Chloride (Saline Flush) 10 ml FLUSH ASDIRECTED PRN PRN Reason: Keep Vein Open Last Admin: 05/11/18 15:42 Dose: 10 ml Sodium Chloride (Saline Flush) 2.5 ml FLUSH ASDIRECTED PRN PRN Reason: Keep Vein Open Last Admin: 05/11/18 15:42 Dose: 2.5 ml Sodium Chloride (Saline Flush) 10 ml FLUSH ASDIRECTED PRN PRN Reason: Keep Vein Open Sodium Chloride (Saline Flush) 2.5 ml FLUSH ASDIRECTED PRN PRN Reason: Keep Vein Open Sodium Phosphate (Neutra-Phos) 250 mg PO QID [facility] Last Admin: 05/20/18 11:41 Dose: 250 mg Discontinued Medications Enoxaparin Sodium (Lovenox) 30 mg SUBCUT Q24H [facility] Last Admin: 05/11/18 19:42 Dose: 30 mg Sodium Chloride (Normal Saline) 1,000 mls @ 999 mls/hr IV .Bolus ONE Stop: 05/11/18 15:33 Last Admin: 05/11/18 15:15 Dose: 999 mls/hr Ciprofloxacin/Dextrose 400 mg/ (Premix) 200 mls @ 200 mls/hr IV Q24H [facility] Last Admin: 05/18/18 18:30 Dose: Not Given Sodium Chloride (Normal Saline) 1,000 mls @ 150 mls/hr IV ASDIRECTED [facility] Last Admin: 05/14/18 00:32 Dose: 150 mls/hr Insulin Aspart (Novolog) 15 unit SUBCUT ONETIME ONE Stop: 05/11/18 21:12 Last Admin: 05/11/18 21:26 Dose: 15 units Insulin Aspart (Novolog) 10 unit SUBCUT ONETIME ONE Stop: 05/11/18 23:01 Last Admin: 05/11/18 23:05 Dose: 10 units Insulin Aspart (Novolog) 10 unit SUBCUT ONETIME ONE Stop: 05/12/18 01:06 Last Admin: 05/12/18 01:09 Dose: 10 units Insulin Aspart (Novolog) 12 unit SUBCUT ONETIME ONE Stop: 05/14/18 08:57 Last Admin: 05/14/18 09:20 Dose: 10 units Morphine Sulfate (Morphine) 2 mg IVPUSH Q2H PRN PRN Reason: Pain (severe 7-10) Stop: 05/12/18 18:16 Pantoprazole Sodium (Protonix) 40 mg PO ACBREAKFAST [facility] Last Admin: 05/17/18 07:00 Dose: 40 mg Potassium Chloride (Klor-Con M20) 40 meq PO BID [facility] Last Admin: 05/17/18 08:06 Dose: 40 meq - Exam Lungs: Clear to Auscultation, Normal Respiratory Effort Cardiovascular: Regular Rate, Regular Rhythm - Problem List & Annotations (1) Failure to thrive SNOMED Code(s): 34513329 Code(s): FFX0754 - Status: Acute Current Visit: Yes (2) Dehydration SNOMED Code(s): 33611084 Code(s): E86.0 - DEHYDRATION Status: Resolved Current Visit: Yes (3) Unable to ambulate SNOMED Code(s): 571140067 Code(s): R26.2 - DIFFICULTY IN WALKING, NOT ELSEWHERE CLASSIFIED Status: Acute Current Visit: No (4) Uncontrolled diabetes mellitus SNOMED Code(s): 55879580, 651909606 Code(s): E11.65 - TYPE 2 DIABETES MELLITUS WITH HYPERGLYCEMIA Status: Acute Current Visit: No (5) Sacral decubitus ulcer SNOMED Code(s): 433273874 Code(s): L89.159 - PRESSURE ULCER OF SACRAL REGION, UNSPECIFIED STAGE Status: Chronic Current Visit: No Qualifiers: Pressure injury stage: stage 1 Qualified Code(s): L89.151 - Pressure ulcer of sacral region, stage 1 (6) HTN (hypertension) SNOMED Code(s): 06545176 Code(s): I10 - ESSENTIAL (PRIMARY) HYPERTENSION Status: Chronic Current Visit: No Qualifiers: Hypertension type: essential hypertension Qualified Code(s): I10 - Essential (primary) hypertension (7) DM type 2 (diabetes mellitus, type 2) SNOMED Code(s): 54486305 Code(s): E11.9 - TYPE 2 DIABETES MELLITUS WITHOUT COMPLICATIONS Status: Chronic Current Visit: No Qualifiers: Diabetes mellitus long term care pharmacist insulin use: with long term care pharmacist use Diabetes mellitus complication status: with skin complications Diabetes mellitus complication detail: with other skin ulcer Qualified Code(s): E11.622 - Type 2 diabetes mellitus with other skin ulcer; Z79.4 - intermediate (current) use of insulin - Problem List Review Problem List Initiated/Reviewed/Updated: Yes - Plan Plan:: This is a 82-year-old female with dementia that is unable to communicate secondary to language barrier who is presenting due to failure to thrive, dehydration. Patient was rehydrated and treated for UTI. -Case Management states decision as far as disposition to [facility] shall be made by 1 PM today. -Shall proceed further per case management after decision has been made today..
[2018-05-20] MEDS: Insulin Detemir 100 Units/ML 3 ML Pen SUBCUT SCH (21:27)
[2018-05-21] MEDS: Heparin Sodium 5,000 Units/ML Vial SUBCUT SCH ×3 (05:12→22:08)
[2018-05-21] MEDS: Phosphorus #1 250 MG Tab PO SCH ×4 (05:12→23:43)
[2018-05-21] MEDS: Insulin Aspart 100 Units/ML 3 ML Pen SUBCUT SCH ×3 (06:45→17:51)
[2018-05-21] MEDS: Lisinopril 5 MG Tab PO SCH (09:04)
[2018-05-21] MEDS: Docusate Sodium 100 MG Cap PO SCH (09:08)
[2018-05-21] MEDS: amLODIPine 5 MG Tab PO SCH (09:08)
--- NOTE | 2018-05-21 15:59 | PCM.PN ---
- General Info Date of Service: 05/21/18 Subjective Update: stable awaiting residential visit this coming Thursday - Patient Data Vitals - Most Recent: Last Vital Signs Temp 37.3 C 05/21/18 12:00 Pulse 79 05/21/18 12:00 Resp 16 05/21/18 12:00 BP 134/59 L 05/21/18 12:00 Pulse Ox 97 05/21/18 12:00 Weight - Most Recent: 45.359 kg I&O - Last 24 Hours: Intake & Output 05/21/18 05/21/18 05/21/18 06:59 14:59 22:59 Intake Total 450 Output Total 500 Balance -50 Lab Results Last 24 Hours: Laboratory Results - last 24 hr 05/20/18 05/20/18 05/21/18 Range/Units 16:37 21:25 06:36 POC Glucose 276 H 209 H 72 (60-110) mg/dL 05/21/18 Range/Units 11:36 POC Glucose 240 H (60-110) mg/dL Med Orders - Current: Current Medications Amlodipine Besylate (Norvasc) 5 mg PO DAILY [facility] Last Admin: 05/21/18 09:08 Dose: 5 mg Bisacodyl (Dulcolax) 10 mg PO DAILY PRN PRN Reason: Constipation Last Admin: 05/16/18 03:22 Dose: 10 mg Docusate Sodium (Colace) 100 mg PO DAILY [facility] Last Admin: 05/21/18 09:08 Dose: 100 mg Heparin Sodium (Porcine) (Heparin Sodium) 5,000 units SUBCUT Q8H [facility] Last Admin: 05/21/18 14:10 Dose: 5,000 units Insulin Aspart (Novolog) 0 unit SUBCUT TIDAC [facility]; Protocol Last Admin: 05/21/18 12:18 Dose: 6 units Insulin Detemir (Levemir) 10 unit SUBCUT BEDTIME [facility] Last Admin: 05/20/18 21:27 Dose: 10 units Lisinopril (Prinivil) 5 mg PO DAILY [facility] Last Admin: 05/21/18 09:04 Dose: 5 mg Lorazepam (Ativan) 1 mg PO BEDTIME PRN PRN Reason: Anxiety Last Admin: 05/18/18 02:47 Dose: 1 mg Ondansetron HCl (Zofran) 4 mg IVPUSH Q4H PRN PRN Reason: Nausea/Vomiting Sodium Chloride (Saline Flush) 10 ml FLUSH ASDIRECTED PRN PRN Reason: Keep Vein Open Last Admin: 05/11/18 15:42 Dose: 10 ml Sodium Chloride (Saline Flush) 2.5 ml FLUSH ASDIRECTED PRN PRN Reason: Keep Vein Open Last Admin: 05/11/18 15:42 Dose: 2.5 ml Sodium Chloride (Saline Flush) 10 ml FLUSH ASDIRECTED PRN PRN Reason: Keep Vein Open Sodium Chloride (Saline Flush) 2.5 ml FLUSH ASDIRECTED PRN PRN Reason: Keep Vein Open Sodium Phosphate (Neutra-Phos) 250 mg PO QID [facility] Last Admin: 05/21/18 11:53 Dose: 250 mg Discontinued Medications Enoxaparin Sodium (Lovenox) 30 mg SUBCUT Q24H [facility] Last Admin: 05/11/18 19:42 Dose: 30 mg Sodium Chloride (Normal Saline) 1,000 mls @ 999 mls/hr IV .Bolus ONE Stop: 05/11/18 15:33 Last Admin: 05/11/18 15:15 Dose: 999 mls/hr Ciprofloxacin/Dextrose 400 mg/ (Premix) 200 mls @ 200 mls/hr IV Q24H [facility] Last Admin: 05/18/18 18:30 Dose: Not Given Sodium Chloride (Normal Saline) 1,000 mls @ 150 mls/hr IV ASDIRECTED [facility] Last Admin: 05/14/18 00:32 Dose: 150 mls/hr Insulin Aspart (Novolog) 15 unit SUBCUT ONETIME ONE Stop: 05/11/18 21:12 Last Admin: 05/11/18 21:26 Dose: 15 units Insulin Aspart (Novolog) 10 unit SUBCUT ONETIME ONE Stop: 05/11/18 23:01 Last Admin: 05/11/18 23:05 Dose: 10 units Insulin Aspart (Novolog) 10 unit SUBCUT ONETIME ONE Stop: 05/12/18 01:06 Last Admin: 05/12/18 01:09 Dose: 10 units Insulin Aspart (Novolog) 12 unit SUBCUT ONETIME ONE Stop: 05/14/18 08:57 Last Admin: 05/14/18 09:20 Dose: 10 units Morphine Sulfate (Morphine) 2 mg IVPUSH Q2H PRN PRN Reason: Pain (severe 7-10) Stop: 05/12/18 18:16 Pantoprazole Sodium (Protonix) 40 mg PO ACBREAKFAST [facility] Last Admin: 05/17/18 07:00 Dose: 40 mg Potassium Chloride (Klor-Con M20) 40 meq PO BID [facility] Last Admin: 05/17/18 08:06 Dose: 40 meq - Problem List & Annotations (1) Failure to thrive SNOMED Code(s): 08515519 Code(s): LLM2937 - Status: Acute Current Visit: Yes (2) Dehydration SNOMED Code(s): 94303898 Code(s): E86.0 - DEHYDRATION Status: Resolved Current Visit: Yes (3) Unable to ambulate SNOMED Code(s): 367189982 Code(s): R26.2 - DIFFICULTY IN WALKING, NOT ELSEWHERE CLASSIFIED Status: Acute Current Visit: No (4) Uncontrolled diabetes mellitus SNOMED Code(s): 89017866, 844547886 Code(s): E11.65 - TYPE 2 DIABETES MELLITUS WITH HYPERGLYCEMIA Status: Acute Current Visit: No (5) Sacral decubitus ulcer SNOMED Code(s): 056769431 Code(s): L89.159 - PRESSURE ULCER OF SACRAL REGION, UNSPECIFIED STAGE Status: Chronic Current Visit: No Qualifiers: Pressure injury stage: stage 1 Qualified Code(s): L89.151 - Pressure ulcer of sacral region, stage 1 (6) HTN (hypertension) SNOMED Code(s): 36703958 Code(s): I10 - ESSENTIAL (PRIMARY) HYPERTENSION Status: Chronic Current Visit: No Qualifiers: Hypertension type: essential hypertension Qualified Code(s): I10 - Essential (primary) hypertension (7) DM type 2 (diabetes mellitus, type 2) SNOMED Code(s): 30724016 Code(s): E11.9 - TYPE 2 DIABETES MELLITUS WITHOUT COMPLICATIONS Status: Chronic Current Visit: No Qualifiers: Diabetes mellitus 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 Patient was rehydrated and treated for UTI. -Case Management states decision as far as disposition to [facility] shall be made by 1 PM today. -Shall proceed further per case management after decision has been made today..
--- NOTE | 2018-05-21 19:26 | PCM.PN ---
- General Info Date of Service: 05/21/18 Subjective Update: Stable - Patient Data Vitals - Most Recent: Last Vital Signs Temp 37.3 C 05/21/18 12:00 Pulse 79 05/21/18 12:00 Resp 16 05/21/18 12:00 BP 134/59 L 05/21/18 12:00 Pulse Ox 97 05/21/18 12:00 Weight - Most Recent: 45.359 kg I&O - Last 24 Hours: Intake & Output 05/21/18 05/21/18 05/21/18 06:59 14:59 22:59 Intake Total 450 640 Output Total 500 700 Balance -50 -60 Lab Results Last 24 Hours: Laboratory Results - last 24 hr 05/20/18 05/21/18 05/21/18 Range/Units 21:25 06:36 11:36 POC Glucose 209 H 72 240 H (60-110) mg/dL Med Orders - Current: Current Medications Amlodipine Besylate (Norvasc) 5 mg PO DAILY [facility] Last Admin: 05/21/18 09:08 Dose: 5 mg Bisacodyl (Dulcolax) 10 mg PO DAILY PRN PRN Reason: Constipation Last Admin: 05/16/18 03:22 Dose: 10 mg Docusate Sodium (Colace) 100 mg PO DAILY [facility] Last Admin: 05/21/18 09:08 Dose: 100 mg Heparin Sodium (Porcine) (Heparin Sodium) 5,000 units SUBCUT Q8H [facility] Last Admin: 05/21/18 14:10 Dose: 5,000 units Insulin Aspart (Novolog) 0 unit SUBCUT TIDAC [facility]; Protocol Last Admin: 05/21/18 17:51 Dose: 9 units Insulin Detemir (Levemir) 10 unit SUBCUT BEDTIME [facility] Last Admin: 05/20/18 21:27 Dose: 10 units Lisinopril (Prinivil) 5 mg PO DAILY [facility] Last Admin: 05/21/18 09:04 Dose: 5 mg Lorazepam (Ativan) 1 mg PO BEDTIME PRN PRN Reason: Anxiety Last Admin: 05/18/18 02:47 Dose: 1 mg Ondansetron HCl (Zofran) 4 mg IVPUSH Q4H PRN PRN Reason: Nausea/Vomiting Sodium Chloride (Saline Flush) 10 ml FLUSH ASDIRECTED PRN PRN Reason: Keep Vein Open Last Admin: 05/11/18 15:42 Dose: 10 ml Sodium Chloride (Saline Flush) 2.5 ml FLUSH ASDIRECTED PRN PRN Reason: Keep Vein Open Last Admin: 05/11/18 15:42 Dose: 2.5 ml Sodium Chloride (Saline Flush) 10 ml FLUSH ASDIRECTED PRN PRN Reason: Keep Vein Open Sodium Chloride (Saline Flush) 2.5 ml FLUSH ASDIRECTED PRN PRN Reason: Keep Vein Open Sodium Phosphate (Neutra-Phos) 250 mg PO QID [facility] Last Admin: 05/21/18 17:51 Dose: 250 mg Discontinued Medications Enoxaparin Sodium (Lovenox) 30 mg SUBCUT Q24H [facility] Last Admin: 05/11/18 19:42 Dose: 30 mg Sodium Chloride (Normal Saline) 1,000 mls @ 999 mls/hr IV .Bolus ONE Stop: 05/11/18 15:33 Last Admin: 05/11/18 15:15 Dose: 999 mls/hr Ciprofloxacin/Dextrose 400 mg/ (Premix) 200 mls @ 200 mls/hr IV Q24H [facility] Last Admin: 05/18/18 18:30 Dose: Not Given Sodium Chloride (Normal Saline) 1,000 mls @ 150 mls/hr IV ASDIRECTED [facility] Last Admin: 05/14/18 00:32 Dose: 150 mls/hr Insulin Aspart (Novolog) 15 unit SUBCUT ONETIME ONE Stop: 05/11/18 21:12 Last Admin: 05/11/18 21:26 Dose: 15 units Insulin Aspart (Novolog) 10 unit SUBCUT ONETIME ONE Stop: 05/11/18 23:01 Last Admin: 05/11/18 23:05 Dose: 10 units Insulin Aspart (Novolog) 10 unit SUBCUT ONETIME ONE Stop: 05/12/18 01:06 Last Admin: 05/12/18 01:09 Dose: 10 units Insulin Aspart (Novolog) 12 unit SUBCUT ONETIME ONE Stop: 05/14/18 08:57 Last Admin: 05/14/18 09:20 Dose: 10 units Morphine Sulfate (Morphine) 2 mg IVPUSH Q2H PRN PRN Reason: Pain (severe 7-10) Stop: 05/12/18 18:16 Pantoprazole Sodium (Protonix) 40 mg PO ACBREAKFAST [facility] Last Admin: 05/17/18 07:00 Dose: 40 mg Potassium Chloride (Klor-Con M20) 40 meq PO BID [facility] Last Admin: 05/17/18 08:06 Dose: 40 meq - Exam Lungs: Clear to Auscultation, Normal Respiratory Effort Cardiovascular: Regular Rate, Regular Rhythm - Problem List & Annotations (1) Failure to thrive SNOMED Code(s): 13182779 Code(s): YBT8047 - Status: Acute Current Visit: Yes (2) Dehydration SNOMED Code(s): 63589174 Code(s): E86.0 - DEHYDRATION Status: Resolved Current Visit: Yes (3) Unable to ambulate SNOMED Code(s): 060432174 Code(s): R26.2 - DIFFICULTY IN WALKING, NOT ELSEWHERE CLASSIFIED Status: Acute Current Visit: No (4) Uncontrolled diabetes mellitus SNOMED Code(s): 75386113, 698616385 Code(s): E11.65 - TYPE 2 DIABETES MELLITUS WITH HYPERGLYCEMIA Status: Acute Current Visit: No (5) Sacral decubitus ulcer SNOMED Code(s): 678105509 Code(s): L89.159 - PRESSURE ULCER OF SACRAL REGION, UNSPECIFIED STAGE Status: Chronic Current Visit: No Qualifiers: Pressure injury stage: stage 1 Qualified Code(s): L89.151 - Pressure ulcer of sacral region, stage 1 (6) HTN (hypertension) SNOMED Code(s): 91915791 Code(s): I10 - ESSENTIAL (PRIMARY) HYPERTENSION Status: Chronic Current Visit: No Qualifiers: Hypertension type: essential hypertension Qualified Code(s): I10 - Essential (primary) hypertension (7) DM type 2 (diabetes mellitus, type 2) SNOMED Code(s): 92923910 Code(s): E11.9 - TYPE 2 DIABETES MELLITUS WITHOUT COMPLICATIONS Status: Chronic Current Visit: No Qualifiers: Diabetes mellitus ocean transportation intermediary insulin use: with intermediate use Diabetes mellitus complication status: with skin complications Diabetes mellitus complication detail: with other skin ulcer Qualified Code(s): E11.622 - Type 2 diabetes mellitus with other skin ulcer; Z79.4 - residential (current) use of insulin - Problem List Review Problem List Initiated/Reviewed/Updated: Yes - Plan Plan:: This is a 82-year-old female with dementia that is unable to communicate secondary to language barrier who is presenting due to failure to thrive, dehydration. Patient was rehydrated and treated for UTI. -[place] states that they show likely take this patient however she'll have a [id number] when they come and examine the patient this Thursday. Disposition pending [id number] May 25
[2018-05-21] MEDS: Insulin Detemir 100 Units/ML 3 ML Pen SUBCUT SCH (22:00)
[2018-05-22] MEDS: Heparin Sodium 5,000 Units/ML Vial SUBCUT SCH ×3 (06:28→21:25)
[2018-05-22] MEDS: Phosphorus #1 250 MG Tab PO SCH ×4 (06:29→23:47)
[2018-05-22] MEDS: Insulin Aspart 100 Units/ML 3 ML Pen SUBCUT SCH ×3 (07:59→18:10)
[2018-05-22] MEDS: Lisinopril 5 MG Tab PO SCH (08:25)
[2018-05-22] MEDS: Docusate Sodium 100 MG Cap PO SCH (08:26)
[2018-05-22] MEDS: amLODIPine 5 MG Tab PO SCH (08:26)
--- NOTE | 2018-05-22 12:38 | PCM.PN ---
- General Info Date of Service: 05/22/18 Subjective Update: Patient continues to be Stable - Patient Data Vitals - Most Recent: Last Vital Signs Temp 36.6 C 05/22/18 11:43 Pulse 72 05/22/18 11:43 Resp 14 05/22/18 11:43 BP 151/65 H 05/22/18 11:43 Pulse Ox 96 05/22/18 11:43 Weight - Most Recent: 45.359 kg I&O - Last 24 Hours: Intake & Output 05/21/18 05/22/18 05/22/18 22:59 06:59 14:59 Intake Total 640 480 Output Total 700 1100 Balance -60 -620 Lab Results Last 24 Hours: Laboratory Results - last 24 hr 05/21/18 05/21/18 05/22/18 Range/Units 16:36 21:36 06:26 POC Glucose 283 H 322 H 173 H (60-110) mg/dL Med Orders - Current: Current Medications Amlodipine Besylate (Norvasc) 5 mg PO DAILY [facility] Last Admin: 05/22/18 08:26 Dose: 5 mg Bisacodyl (Dulcolax) 10 mg PO DAILY PRN PRN Reason: Constipation Last Admin: 05/16/18 03:22 Dose: 10 mg Docusate Sodium (Colace) 100 mg PO DAILY [facility] Last Admin: 05/22/18 08:26 Dose: 100 mg Heparin Sodium (Porcine) (Heparin Sodium) 5,000 units SUBCUT Q8H [facility] Last Admin: 05/22/18 06:28 Dose: 5,000 units Insulin Aspart (Novolog) 0 unit SUBCUT TIDAC [facility]; Protocol Last Admin: 05/22/18 11:55 Dose: 6 units Insulin Detemir (Levemir) 10 unit SUBCUT BEDTIME [facility] Last Admin: 05/21/18 22:00 Dose: 10 units Lisinopril (Prinivil) 5 mg PO DAILY [facility] Last Admin: 05/22/18 08:25 Dose: 5 mg Lorazepam (Ativan) 1 mg PO BEDTIME PRN PRN Reason: Anxiety Last Admin: 05/18/18 02:47 Dose: 1 mg Ondansetron HCl (Zofran) 4 mg IVPUSH Q4H PRN PRN Reason: Nausea/Vomiting Sodium Chloride (Saline Flush) 10 ml FLUSH ASDIRECTED PRN PRN Reason: Keep Vein Open Last Admin: 05/11/18 15:42 Dose: 10 ml Sodium Chloride (Saline Flush) 2.5 ml FLUSH ASDIRECTED PRN PRN Reason: Keep Vein Open Last Admin: 05/11/18 15:42 Dose: 2.5 ml Sodium Chloride (Saline Flush) 10 ml FLUSH ASDIRECTED PRN PRN Reason: Keep Vein Open Sodium Chloride (Saline Flush) 2.5 ml FLUSH ASDIRECTED PRN PRN Reason: Keep Vein Open Sodium Phosphate (Neutra-Phos) 250 mg PO QID [facility] Last Admin: 05/22/18 11:58 Dose: 250 mg Discontinued Medications Enoxaparin Sodium (Lovenox) 30 mg SUBCUT Q24H [facility] Last Admin: 05/11/18 19:42 Dose: 30 mg Sodium Chloride (Normal Saline) 1,000 mls @ 999 mls/hr IV .Bolus ONE Stop: 05/11/18 15:33 Last Admin: 05/11/18 15:15 Dose: 999 mls/hr Ciprofloxacin/Dextrose 400 mg/ (Premix) 200 mls @ 200 mls/hr IV Q24H [facility] Last Admin: 05/18/18 18:30 Dose: Not Given Sodium Chloride (Normal Saline) 1,000 mls @ 150 mls/hr IV ASDIRECTED [facility] Last Admin: 05/14/18 00:32 Dose: 150 mls/hr Insulin Aspart (Novolog) 15 unit SUBCUT ONETIME ONE Stop: 05/11/18 21:12 Last Admin: 05/11/18 21:26 Dose: 15 units Insulin Aspart (Novolog) 10 unit SUBCUT ONETIME ONE Stop: 05/11/18 23:01 Last Admin: 05/11/18 23:05 Dose: 10 units Insulin Aspart (Novolog) 10 unit SUBCUT ONETIME ONE Stop: 05/12/18 01:06 Last Admin: 05/12/18 01:09 Dose: 10 units Insulin Aspart (Novolog) 12 unit SUBCUT ONETIME ONE Stop: 05/14/18 08:57 Last Admin: 05/14/18 09:20 Dose: 10 units Morphine Sulfate (Morphine) 2 mg IVPUSH Q2H PRN PRN Reason: Pain (severe 7-10) Stop: 05/12/18 18:16 Pantoprazole Sodium (Protonix) 40 mg PO ACBREAKFAST [facility] Last Admin: 05/17/18 07:00 Dose: 40 mg Potassium Chloride (Klor-Con M20) 40 meq PO BID [facility] Last Admin: 05/17/18 08:06 Dose: 40 meq - Exam Lungs: Clear to Auscultation, Normal Respiratory Effort Cardiovascular: Regular Rate, Regular Rhythm - Problem List & Annotations (1) Failure to thrive SNOMED Code(s): 47577434 Code(s): XVV5246 - Status: Acute Current Visit: Yes (2) Dehydration SNOMED Code(s): 37674648 Code(s): E86.0 - DEHYDRATION Status: Resolved Current Visit: Yes (3) Unable to ambulate SNOMED Code(s): 083563912 Code(s): R26.2 - DIFFICULTY IN WALKING, NOT ELSEWHERE CLASSIFIED Status: Acute Current Visit: No (4) Uncontrolled diabetes mellitus SNOMED Code(s): 85131672, 158392958 Code(s): E11.65 - TYPE 2 DIABETES MELLITUS WITH HYPERGLYCEMIA Status: Acute Current Visit: No (5) Sacral decubitus ulcer SNOMED Code(s): 585208053 Code(s): L89.159 - PRESSURE ULCER OF SACRAL REGION, UNSPECIFIED STAGE Status: Chronic Current Visit: No Qualifiers: Pressure injury stage: stage 1 Qualified Code(s): L89.151 - Pressure ulcer of sacral region, stage 1 (6) HTN (hypertension) SNOMED Code(s): 13772918 Code(s): I10 - ESSENTIAL (PRIMARY) HYPERTENSION Status: Chronic Current Visit: No Qualifiers: Hypertension type: essential hypertension Qualified Code(s): I10 - Essential (primary) hypertension (7) DM type 2 (diabetes mellitus, type 2) SNOMED Code(s): 31842862 Code(s): E11.9 - TYPE 2 DIABETES MELLITUS WITHOUT COMPLICATIONS Status: Chronic Current Visit: No Qualifiers: Diabetes mellitus correction insulin use: with remote computer terminal operator use Diabetes mellitus complication status: with skin complications Diabetes mellitus complication detail: with other skin ulcer Qualified Code(s): E11.622 - Type 2 diabetes mellitus with other skin ulcer; Z79.4 - [facility] (current) use of insulin - Problem List Review Problem List Initiated/Reviewed/Updated: Yes - Plan Plan:: This is a 82-year-old female with dementia that is unable to communicate secondary to language barrier who is presenting due to failure to thrive, dehydration. Patient was rehydrated and treated for UTI. -Currently no change in management, still awaiting [facility] visit. -[place] states that they show likely take this patient however she'll have a [id number] when they come and examine the patient this Thursday. Disposition pending [id number] May 25
[2018-05-22] MEDS: Insulin Detemir 100 Units/ML 3 ML Pen SUBCUT SCH (21:24)
[2018-05-23] MEDS: Phosphorus #1 250 MG Tab PO SCH ×3 (06:31→18:17)
[2018-05-23] MEDS: Heparin Sodium 5,000 Units/ML Vial SUBCUT SCH ×3 (06:31→21:00)
[2018-05-23] MEDS: Insulin Aspart 100 Units/ML 3 ML Pen SUBCUT SCH ×3 (08:14→17:55)
[2018-05-23] MEDS: Docusate Sodium 100 MG Cap PO SCH (08:15)
[2018-05-23] MEDS: Lisinopril 5 MG Tab PO SCH (08:17)
[2018-05-23] MEDS: amLODIPine 5 MG Tab PO SCH (08:17)
--- NOTE | 2018-05-23 09:41 | PCM.PN ---
- General Info Date of Service: 05/23/18 - Review of Systems Systems Review Comment:: refused lab draw this morning - Patient Data Vitals - Most Recent: Last Vital Signs Temp 36.1 C 05/23/18 07:30 Pulse 73 05/23/18 07:30 Resp 16 05/23/18 07:30 BP 170/67 H 05/23/18 08:17 Pulse Ox 96 05/23/18 07:30 Weight - Most Recent: 45.359 kg I&O - Last 24 Hours: Intake & Output 05/22/18 05/23/18 05/23/18 22:59 06:59 14:59 Intake Total 520 480 Output Total 300 850 Balance 220 -370 Lab Results Last 24 Hours: Laboratory Results - last 24 hr 05/22/18 05/22/18 05/22/18 Range/Units 11:36 15:23 21:21 POC Glucose 224 H 273 H 276 H (60-110) mg/dL 05/23/18 Range/Units 06:30 POC Glucose 170 H (60-110) mg/dL Med Orders - Current: Current Medications Amlodipine Besylate (Norvasc) 5 mg PO DAILY [facility] Last Admin: 05/23/18 08:17 Dose: 5 mg Bisacodyl (Dulcolax) 10 mg PO DAILY PRN PRN Reason: Constipation Last Admin: 05/16/18 03:22 Dose: 10 mg Docusate Sodium (Colace) 100 mg PO DAILY [facility] Last Admin: 05/23/18 08:15 Dose: 100 mg Heparin Sodium (Porcine) (Heparin Sodium) 5,000 units SUBCUT Q8H [facility] Last Admin: 05/23/18 06:31 Dose: 5,000 units Insulin Aspart (Novolog) 0 unit SUBCUT TIDAC [facility]; Protocol Last Admin: 05/23/18 08:14 Dose: 3 units Insulin Detemir (Levemir) 10 unit SUBCUT BEDTIME [facility] Last Admin: 05/22/18 21:24 Dose: 10 units Lisinopril (Prinivil) 5 mg PO DAILY [facility] Last Admin: 05/23/18 08:17 Dose: 5 mg Lorazepam (Ativan) 1 mg PO BEDTIME PRN PRN Reason: Anxiety Last Admin: 05/18/18 02:47 Dose: 1 mg Ondansetron HCl (Zofran) 4 mg IVPUSH Q4H PRN PRN Reason: Nausea/Vomiting Sodium Chloride (Saline Flush) 10 ml FLUSH ASDIRECTED PRN PRN Reason: Keep Vein Open Last Admin: 05/11/18 15:42 Dose: 10 ml Sodium Chloride (Saline Flush) 2.5 ml FLUSH ASDIRECTED PRN PRN Reason: Keep Vein Open Last Admin: 05/11/18 15:42 Dose: 2.5 ml Sodium Chloride (Saline Flush) 10 ml FLUSH ASDIRECTED PRN PRN Reason: Keep Vein Open Sodium Chloride (Saline Flush) 2.5 ml FLUSH ASDIRECTED PRN PRN Reason: Keep Vein Open Sodium Phosphate (Neutra-Phos) 250 mg PO QID [facility] Last Admin: 05/23/18 06:31 Dose: 250 mg Discontinued Medications Enoxaparin Sodium (Lovenox) 30 mg SUBCUT Q24H [facility] Last Admin: 05/11/18 19:42 Dose: 30 mg Sodium Chloride (Normal Saline) 1,000 mls @ 999 mls/hr IV .Bolus ONE Stop: 05/11/18 15:33 Last Admin: 05/11/18 15:15 Dose: 999 mls/hr Ciprofloxacin/Dextrose 400 mg/ (Premix) 200 mls @ 200 mls/hr IV Q24H [facility] Last Admin: 05/18/18 18:30 Dose: Not Given Sodium Chloride (Normal Saline) 1,000 mls @ 150 mls/hr IV ASDIRECTED [facility] Last Admin: 05/14/18 00:32 Dose: 150 mls/hr Insulin Aspart (Novolog) 15 unit SUBCUT ONETIME ONE Stop: 05/11/18 21:12 Last Admin: 05/11/18 21:26 Dose: 15 units Insulin Aspart (Novolog) 10 unit SUBCUT ONETIME ONE Stop: 05/11/18 23:01 Last Admin: 05/11/18 23:05 Dose: 10 units Insulin Aspart (Novolog) 10 unit SUBCUT ONETIME ONE Stop: 05/12/18 01:06 Last Admin: 05/12/18 01:09 Dose: 10 units Insulin Aspart (Novolog) 12 unit SUBCUT ONETIME ONE Stop: 05/14/18 08:57 Last Admin: 05/14/18 09:20 Dose: 10 units Morphine Sulfate (Morphine) 2 mg IVPUSH Q2H PRN PRN Reason: Pain (severe 7-10) Stop: 05/12/18 18:16 Pantoprazole Sodium (Protonix) 40 mg PO ACBREAKFAST [facility] Last Admin: 05/17/18 07:00 Dose: 40 mg Potassium Chloride (Klor-Con M20) 40 meq PO BID [facility] Last Admin: 05/17/18 08:06 Dose: 40 meq - Exam General: No Acute Distress Lungs: Clear to Auscultation, Normal Respiratory Effort Cardiovascular: Regular Rate, Regular Rhythm GI/Abdominal Exam: Soft, Non-Tender Extremities: No: Pedal Edema Skin: Warm, Dry, Intact - Problem List Review Problem List Initiated/Reviewed/Updated: Yes - My Orders Last 24 Hours: My Active Orders 05/23/18 05:11 BASIC METABOLIC PANEL,BMP [CHEM] AM CBC WITH AUTO DIFF [HEME] AM - Plan Plan:: 82 yo female admitted for failure to thrive and UTI. Discharge pending placement at SNF.
[2018-05-23] MEDS: Insulin Detemir 100 Units/ML 3 ML Pen SUBCUT SCH (20:53)
[2018-05-24] MEDS: Phosphorus #1 250 MG Tab PO SCH ×2 (00:22→06:25)
[2018-05-24] MEDS: Heparin Sodium 5,000 Units/ML Vial SUBCUT SCH ×3 (06:24→21:15)
[2018-05-24] MEDS: Insulin Aspart 100 Units/ML 3 ML Pen SUBCUT SCH ×3 (07:45→17:57)
[2018-05-24] MEDS: Docusate Sodium 100 MG Cap PO SCH (08:04)
[2018-05-24] MEDS: Lisinopril 5 MG Tab PO SCH (08:04)
[2018-05-24] MEDS: amLODIPine 5 MG Tab PO SCH (08:04)
--- NOTE | 2018-05-24 11:55 | PCM.PN ---
- General Info Date of Service: 05/24/18 - Patient Data Vitals - Most Recent: Last Vital Signs Temp 37.1 C 05/24/18 07:46 Pulse 80 05/24/18 07:46 Resp 17 05/24/18 07:46 BP 148/66 H 05/24/18 08:04 Pulse Ox 97 05/24/18 07:46 Weight - Most Recent: 45.359 kg I&O - Last 24 Hours: Intake & Output 05/23/18 05/24/18 05/24/18 22:59 06:59 14:59 Intake Total 1040 400 Output Total 1200 850 Balance -160 -450 Lab Results Last 24 Hours: Laboratory Results - last 24 hr 05/23/18 05/23/18 05/23/18 Range/Units 11:34 17:27 20:51 POC Glucose 226 H 226 H 266 H (60-110) mg/dL 05/24/18 Range/Units 06:23 POC Glucose 172 H (60-110) mg/dL Med Orders - Current: Current Medications Amlodipine Besylate (Norvasc) 5 mg PO DAILY [facility] Last Admin: 05/24/18 08:04 Dose: 5 mg Bisacodyl (Dulcolax) 10 mg PO DAILY PRN PRN Reason: Constipation Last Admin: 05/16/18 03:22 Dose: 10 mg Docusate Sodium (Colace) 100 mg PO DAILY [facility] Last Admin: 05/24/18 08:04 Dose: 100 mg Heparin Sodium (Porcine) (Heparin Sodium) 5,000 units SUBCUT Q8H [facility] Last Admin: 05/24/18 06:24 Dose: 5,000 units Insulin Aspart (Novolog) 0 unit SUBCUT TIDAC [facility]; Protocol Last Admin: 05/24/18 07:45 Dose: 3 units Insulin Detemir (Levemir) 10 unit SUBCUT BEDTIME [facility] Last Admin: 05/23/18 20:53 Dose: 10 units Lisinopril (Prinivil) 5 mg PO DAILY [facility] Last Admin: 05/24/18 08:04 Dose: 5 mg Lorazepam (Ativan) 1 mg PO BEDTIME PRN PRN Reason: Anxiety Last Admin: 05/18/18 02:47 Dose: 1 mg Ondansetron HCl (Zofran) 4 mg IVPUSH Q4H PRN PRN Reason: Nausea/Vomiting Sodium Chloride (Saline Flush) 10 ml FLUSH ASDIRECTED PRN PRN Reason: Keep Vein Open Last Admin: 05/11/18 15:42 Dose: 10 ml Sodium Chloride (Saline Flush) 2.5 ml FLUSH ASDIRECTED PRN PRN Reason: Keep Vein Open Last Admin: 05/11/18 15:42 Dose: 2.5 ml Sodium Chloride (Saline Flush) 10 ml FLUSH ASDIRECTED PRN PRN Reason: Keep Vein Open Sodium Chloride (Saline Flush) 2.5 ml FLUSH ASDIRECTED PRN PRN Reason: Keep Vein Open Sodium Phosphate (Neutra-Phos) 250 mg PO QID [facility] Last Admin: 05/24/18 06:25 Dose: 250 mg Discontinued Medications Enoxaparin Sodium (Lovenox) 30 mg SUBCUT Q24H [facility] Last Admin: 05/11/18 19:42 Dose: 30 mg Sodium Chloride (Normal Saline) 1,000 mls @ 999 mls/hr IV .Bolus ONE Stop: 05/11/18 15:33 Last Admin: 05/11/18 15:15 Dose: 999 mls/hr Ciprofloxacin/Dextrose 400 mg/ (Premix) 200 mls @ 200 mls/hr IV Q24H [facility] Last Admin: 05/18/18 18:30 Dose: Not Given Sodium Chloride (Normal Saline) 1,000 mls @ 150 mls/hr IV ASDIRECTED [facility] Last Admin: 05/14/18 00:32 Dose: 150 mls/hr Insulin Aspart (Novolog) 15 unit SUBCUT ONETIME ONE Stop: 05/11/18 21:12 Last Admin: 05/11/18 21:26 Dose: 15 units Insulin Aspart (Novolog) 10 unit SUBCUT ONETIME ONE Stop: 05/11/18 23:01 Last Admin: 05/11/18 23:05 Dose: 10 units Insulin Aspart (Novolog) 10 unit SUBCUT ONETIME ONE Stop: 05/12/18 01:06 Last Admin: 05/12/18 01:09 Dose: 10 units Insulin Aspart (Novolog) 12 unit SUBCUT ONETIME ONE Stop: 05/14/18 08:57 Last Admin: 05/14/18 09:20 Dose: 10 units Morphine Sulfate (Morphine) 2 mg IVPUSH Q2H PRN PRN Reason: Pain (severe 7-10) Stop: 05/12/18 18:16 Pantoprazole Sodium (Protonix) 40 mg PO ACBREAKFAST [facility] Last Admin: 05/17/18 07:00 Dose: 40 mg Potassium Chloride (Klor-Con M20) 40 meq PO BID [facility] Last Admin: 05/17/18 08:06 Dose: 40 meq - Exam General: Cooperative Lungs: Clear to Auscultation, Normal Respiratory Effort Cardiovascular: Regular Rate, Regular Rhythm Extremities: Non-Tender, No Pedal Edema Skin: Warm, Dry, Intact - Problem List Review Problem List Initiated/Reviewed/Updated: Yes - Plan Plan:: 82 yo female with dementia admitted for failure to thrive and UTI. She was found to be living at home in unsafe conditions. Discharge pending placement at [facility]. [facility] coming today for evaluation. DM: on levemir and novolog ssi HTN: on amlodipine and lisinopril
[2018-05-24] MEDS: Acetaminophen 325 MG Tab PO PRN (17:49)
[2018-05-24] MEDS: Insulin Detemir 100 Units/ML 3 ML Pen SUBCUT SCH (21:09)
[2018-05-25] MEDS: Insulin Aspart 100 Units/ML 3 ML Pen SUBCUT SCH ×3 (07:26→16:45)
[2018-05-25] MEDS: Heparin Sodium 5,000 Units/ML Vial SUBCUT SCH ×3 (07:30→21:28)
[2018-05-25] MEDS: amLODIPine 5 MG Tab PO SCH (08:39)
[2018-05-25] MEDS: Docusate Sodium 100 MG Cap PO SCH (08:40)
[2018-05-25] MEDS: Bisacodyl 5 MG Tab PO PRN (08:40)
[2018-05-25] MEDS: Lisinopril 5 MG Tab PO SCH (08:40)
--- NOTE | 2018-05-25 19:59 | PCM.PN ---
<Ryan Roche Z - Last Filed: 05/25/18 19:57> - General Info Date of Service: 05/25/18 Subjective Update: Stable, no current issues. - Patient Data Vitals - Most Recent: Last Vital Signs Temp 36.6 C 05/25/18 16:00 Pulse 84 05/25/18 16:00 Resp 16 05/25/18 16:00 BP 157/60 H 05/25/18 16:00 Pulse Ox 94 L 05/25/18 16:00 Weight - Most Recent: 45.359 kg I&O - Last 24 Hours: Intake & Output 05/25/18 05/25/18 05/25/18 06:59 14:59 22:59 Intake Total 640 750 Output Total 1100 700 Balance -460 50 Lab Results Last 24 Hours: Laboratory Results - last 24 hr 05/24/18 05/25/18 05/25/18 Range/Units 20:53 06:25 11:38 POC Glucose 243 H 86 217 H (60-110) mg/dL 05/25/18 Range/Units 15:38 POC Glucose 246 H (60-110) mg/dL Med Orders - Current: Current Medications Acetaminophen (Tylenol) 650 mg PO Q6H PRN PRN Reason: Pain (mild 1-3) Last Admin: 05/24/18 17:49 Dose: 650 mg Amlodipine Besylate (Norvasc) 5 mg PO DAILY [facility] Last Admin: 05/25/18 08:39 Dose: 5 mg Bisacodyl (Dulcolax) 10 mg PO DAILY PRN PRN Reason: Constipation Last Admin: 05/25/18 08:40 Dose: 10 mg Docusate Sodium (Colace) 100 mg PO DAILY [facility] Last Admin: 05/25/18 08:40 Dose: 100 mg Heparin Sodium (Porcine) (Heparin Sodium) 5,000 units SUBCUT Q8H [facility] Last Admin: 05/25/18 14:21 Dose: 5,000 units Insulin Aspart (Novolog) 0 unit SUBCUT TIDAC [facility]; Protocol Last Admin: 05/25/18 16:45 Dose: 6 units Insulin Detemir (Levemir) 10 unit SUBCUT BEDTIME [facility] Last Admin: 05/24/18 21:09 Dose: 10 units Lisinopril (Prinivil) 5 mg PO DAILY [facility] Last Admin: 05/25/18 08:40 Dose: 5 mg Lorazepam (Ativan) 1 mg PO BEDTIME PRN PRN Reason: Anxiety Last Admin: 05/18/18 02:47 Dose: 1 mg Ondansetron HCl (Zofran) 4 mg IVPUSH Q4H PRN PRN Reason: Nausea/Vomiting Sodium Chloride (Saline Flush) 10 ml FLUSH ASDIRECTED PRN PRN Reason: Keep Vein Open Last Admin: 05/11/18 15:42 Dose: 10 ml Sodium Chloride (Saline Flush) 2.5 ml FLUSH ASDIRECTED PRN PRN Reason: Keep Vein Open Last Admin: 05/11/18 15:42 Dose: 2.5 ml Sodium Chloride (Saline Flush) 10 ml FLUSH ASDIRECTED PRN PRN Reason: Keep Vein Open Sodium Chloride (Saline Flush) 2.5 ml FLUSH ASDIRECTED PRN PRN Reason: Keep Vein Open Discontinued Medications Enoxaparin Sodium (Lovenox) 30 mg SUBCUT Q24H [facility] Last Admin: 05/11/18 19:42 Dose: 30 mg Sodium Chloride (Normal Saline) 1,000 mls @ 999 mls/hr IV .Bolus ONE Stop: 05/11/18 15:33 Last Admin: 05/11/18 15:15 Dose: 999 mls/hr Ciprofloxacin/Dextrose 400 mg/ (Premix) 200 mls @ 200 mls/hr IV Q24H [facility] Last Admin: 05/18/18 18:30 Dose: Not Given Sodium Chloride (Normal Saline) 1,000 mls @ 150 mls/hr IV ASDIRECTED [facility] Last Admin: 05/14/18 00:32 Dose: 150 mls/hr Insulin Aspart (Novolog) 15 unit SUBCUT ONETIME ONE Stop: 05/11/18 21:12 Last Admin: 05/11/18 21:26 Dose: 15 units Insulin Aspart (Novolog) 10 unit SUBCUT ONETIME ONE Stop: 05/11/18 23:01 Last Admin: 05/11/18 23:05 Dose: 10 units Insulin Aspart (Novolog) 10 unit SUBCUT ONETIME ONE Stop: 05/12/18 01:06 Last Admin: 05/12/18 01:09 Dose: 10 units Insulin Aspart (Novolog) 12 unit SUBCUT ONETIME ONE Stop: 05/14/18 08:57 Last Admin: 05/14/18 09:20 Dose: 10 units Morphine Sulfate (Morphine) 2 mg IVPUSH Q2H PRN PRN Reason: Pain (severe 7-10) Stop: 05/12/18 18:16 Pantoprazole Sodium (Protonix) 40 mg PO ACBREAKFAST [facility] Last Admin: 05/17/18 07:00 Dose: 40 mg Potassium Chloride (Klor-Con M20) 40 meq PO BID [facility] Last Admin: 05/17/18 08:06 Dose: 40 meq Sodium Phosphate (Neutra-Phos) 250 mg PO QID [facility] Last Admin: 05/24/18 06:25 Dose: 250 mg - Exam Lungs: Clear to Auscultation, Normal Respiratory Effort Cardiovascular: Regular Rate, Regular Rhythm - Problem List & Annotations (1) Failure to thrive SNOMED Code(s): 33529994 Code(s): RKI4035 - Status: Acute Current Visit: Yes (2) Dehydration SNOMED Code(s): 54552138 Code(s): E86.0 - DEHYDRATION Status: Resolved Current Visit: Yes (3) Unable to ambulate SNOMED Code(s): 853495857 Code(s): R26.2 - DIFFICULTY IN WALKING, NOT ELSEWHERE CLASSIFIED Status: Acute Current Visit: No (4) Uncontrolled diabetes mellitus SNOMED Code(s): 16202862, 339666426 Code(s): E11.65 - TYPE 2 DIABETES MELLITUS WITH HYPERGLYCEMIA Status: Acute Current Visit: No (5) Sacral decubitus ulcer SNOMED Code(s): 930261522 Code(s): L89.159 - PRESSURE ULCER OF SACRAL REGION, UNSPECIFIED STAGE Status: Chronic Current Visit: No Qualifiers: Pressure injury stage: stage 1 Qualified Code(s): L89.151 - Pressure ulcer of sacral region, stage 1 (6) HTN (hypertension) SNOMED Code(s): 52382907 Code(s): I10 - ESSENTIAL (PRIMARY) HYPERTENSION Status: Chronic Current Visit: No Qualifiers: Hypertension type: essential hypertension Qualified Code(s): I10 - Essential (primary) hypertension (7) DM type 2 (diabetes mellitus, type 2) SNOMED Code(s): 47119620 Code(s): E11.9 - TYPE 2 DIABETES MELLITUS WITHOUT COMPLICATIONS Status: Chronic Current Visit: No Qualifiers: Diabetes mellitus usp insulin use: with lobsterman use Diabetes mellitus complication status: with skin complications Diabetes mellitus complication detail: with other skin ulcer Qualified Code(s): E11.622 - Type 2 diabetes mellitus with other skin ulcer; Z79.4 - USP (current) use of insulin - Problem List Review Problem List Initiated/Reviewed/Updated: Yes - Plan Plan:: 82 yo female with dementia admitted for failure to thrive and UTI. She was found to be living at home in unsafe conditions. [facility]charge [facility]; [facility] to [facility] patient today or tomorrow for final decision. DM: on levemir and novolog ssi low-dose HTN: on amlodipine and lisinopril FEN: Patient hydrated will not any IV fluids, electrolytes last checked within normal limits, ADA diet DVT prophylaxis: Heparin 5000 units subcutaneous 3 times a day Code Status- need to discuss with family to determine CODE STATUS per patient <Sd Morse - Last Filed: 05/26/18 08:23> - Patient Data Vitals - Most Recent: Last Vital Signs Temp 35.9 C 05/26/18 04:36 Pulse 77 05/26/18 00:00 Resp 22 H 05/26/18 04:36 BP 149/60 H 05/26/18 04:36 Pulse Ox 93 L 05/26/18 04:36 I&O - Last 24 Hours: Intake & Output 05/25/18 05/26/18 05/26/18 22:59 06:59 14:59 Intake Total 750 800 Output Total 700 1100 Balance 50 -300 Lab Results Last 24 Hours: Laboratory Results - last 24 hr 05/25/18 05/25/18 05/25/18 Range/Units 06:25 11:38 15:38 POC Glucose 86 217 H 246 H (60-110) mg/dL 05/25/18 05/26/18 Range/Units 20:47 06:29 POC Glucose 249 H 131 H (60-110) mg/dL Med Orders - Current: Current Medications Acetaminophen (Tylenol) 650 mg PO Q6H PRN PRN Reason: Pain (mild 1-3) Last Admin: 05/24/18 17:49 Dose: 650 mg Amlodipine Besylate (Norvasc) 5 mg PO DAILY [facility] Last Admin: 05/25/18 08:39 Dose: 5 mg Bisacodyl (Dulcolax) 10 mg PO DAILY PRN PRN Reason: Constipation Last Admin: 05/25/18 08:40 Dose: 10 mg Docusate Sodium (Colace) 100 mg PO DAILY [facility] Last Admin: 05/25/18 08:40 Dose: 100 mg Heparin Sodium (Porcine) (Heparin Sodium) 5,000 units SUBCUT Q8H [facility] Last Admin: 05/26/18 06:43 Dose: 5,000 units Insulin Aspart (Novolog) 0 unit SUBCUT TIDAC [facility]; Protocol Last Admin: 05/26/18 06:44 Dose: Not Given Insulin Detemir (Levemir) 10 unit SUBCUT BEDTIME [facility] Last Admin: 05/25/18 20:48 Dose: 10 units Lisinopril (Prinivil) 5 mg PO DAILY [facility] Last Admin: 05/25/18 08:40 Dose: 5 mg Lorazepam (Ativan) 1 mg PO BEDTIME PRN PRN Reason: Anxiety Last Admin: 05/18/18 02:47 Dose: 1 mg Ondansetron HCl (Zofran) 4 mg IVPUSH Q4H PRN PRN Reason: Nausea/Vomiting Sodium Chloride (Saline Flush) 10 ml FLUSH ASDIRECTED PRN PRN Reason: Keep Vein Open Last Admin: 05/11/18 15:42 Dose: 10 ml Sodium Chloride (Saline Flush) 2.5 ml FLUSH ASDIRECTED PRN PRN Reason: Keep Vein Open Last Admin: 05/11/18 15:42 Dose: 2.5 ml Sodium Chloride (Saline Flush) 10 ml FLUSH ASDIRECTED PRN PRN Reason: Keep Vein Open Sodium Chloride (Saline Flush) 2.5 ml FLUSH ASDIRECTED PRN PRN Reason: Keep Vein Open Discontinued Medications Enoxaparin Sodium (Lovenox) 30 mg SUBCUT Q24H [facility] Last Admin: 05/11/18 19:42 Dose: 30 mg Sodium Chloride (Normal Saline) 1,000 mls @ 999 mls/hr IV .Bolus ONE Stop: 05/11/18 15:33 Last Admin: 05/11/18 15:15 Dose: 999 mls/hr Ciprofloxacin/Dextrose 400 mg/ (Premix) 200 mls @ 200 mls/hr IV Q24H [facility] Last Admin: 05/18/18 18:30 Dose: Not Given Sodium Chloride (Normal Saline) 1,000 mls @ 150 mls/hr IV ASDIRECTED [facility] Last Admin: 05/14/18 00:32 Dose: 150 mls/hr Insulin Aspart (Novolog) 15 unit SUBCUT ONETIME ONE Stop: 05/11/18 21:12 Last Admin: 05/11/18 21:26 Dose: 15 units Insulin Aspart (Novolog) 10 unit SUBCUT ONETIME ONE Stop: 05/11/18 23:01 Last Admin: 05/11/18 23:05 Dose: 10 units Insulin Aspart (Novolog) 10 unit SUBCUT ONETIME ONE Stop: 05/12/18 01:06 Last Admin: 05/12/18 01:09 Dose: 10 units Insulin Aspart (Novolog) 12 unit SUBCUT ONETIME ONE Stop: 05/14/18 08:57 Last Admin: 05/14/18 09:20 Dose: 10 units Morphine Sulfate (Morphine) 2 mg IVPUSH Q2H PRN PRN Reason: Pain (severe 7-10) Stop: 05/12/18 18:16 Pantoprazole Sodium (Protonix) 40 mg PO ACBREAKFAST [facility] Last Admin: 05/17/18 07:00 Dose: 40 mg Potassium Chloride (Klor-Con M20) 40 meq PO BID [facility] Last Admin: 05/17/18 08:06 Dose: 40 meq Sodium Phosphate (Neutra-Phos) 250 mg PO QID [facility] Last Admin: 05/24/18 06:25 Dose: 250 mg - Plan Plan:: I saw and evaluated the patient. Discussed with resident and agree with residents findings and plan as documented in the residents note.
[2018-05-25] MEDS: Insulin Detemir 100 Units/ML 3 ML Pen SUBCUT SCH (20:48)
[2018-05-26] MEDS: Heparin Sodium 5,000 Units/ML Vial SUBCUT SCH ×3 (06:43→21:43)
[2018-05-26] MEDS: Insulin Aspart 100 Units/ML 3 ML Pen SUBCUT SCH ×3 (06:44→17:38)
[2018-05-26] MEDS: Lisinopril 5 MG Tab PO SCH (08:34)
[2018-05-26] MEDS: amLODIPine 5 MG Tab PO SCH (08:36)
[2018-05-26] MEDS: Docusate Sodium 100 MG Cap PO SCH (08:36)
--- NOTE | 2018-05-26 11:02 | PCM.PN ---
- General Info Date of Service: 05/26/18 Subjective Update: Stable, no acute changes - Patient Data Vitals - Most Recent: Last Vital Signs Temp 36.8 C 05/26/18 08:38 Pulse 82 05/26/18 08:38 Resp 14 05/26/18 08:38 BP 146/61 H 05/26/18 08:38 Pulse Ox 96 05/26/18 08:38 Weight - Most Recent: 45.359 kg I&O - Last 24 Hours: Intake & Output 05/25/18 05/26/18 05/26/18 22:59 06:59 14:59 Intake Total 750 800 Output Total 700 1100 Balance 50 -300 Lab Results Last 24 Hours: Laboratory Results - last 24 hr 05/25/18 05/25/18 05/25/18 Range/Units 11:38 15:38 20:47 POC Glucose 217 H 246 H 249 H (60-110) mg/dL 05/26/18 Range/Units 06:29 POC Glucose 131 H (60-110) mg/dL Med Orders - Current: Current Medications Acetaminophen (Tylenol) 650 mg PO Q6H PRN PRN Reason: Pain (mild 1-3) Last Admin: 05/24/18 17:49 Dose: 650 mg Amlodipine Besylate (Norvasc) 5 mg PO DAILY [facility] Last Admin: 05/26/18 08:36 Dose: 5 mg Bisacodyl (Dulcolax) 10 mg PO DAILY PRN PRN Reason: Constipation Last Admin: 05/25/18 08:40 Dose: 10 mg Docusate Sodium (Colace) 100 mg PO DAILY [facility] Last Admin: 05/26/18 08:36 Dose: 100 mg Heparin Sodium (Porcine) (Heparin Sodium) 5,000 units SUBCUT Q8H [facility] Last Admin: 05/26/18 06:43 Dose: 5,000 units Insulin Aspart (Novolog) 0 unit SUBCUT TIDAC [facility]; Protocol Last Admin: 05/26/18 06:44 Dose: Not Given Insulin Detemir (Levemir) 10 unit SUBCUT BEDTIME [facility] Last Admin: 05/25/18 20:48 Dose: 10 units Lisinopril (Prinivil) 5 mg PO DAILY [facility] Last Admin: 05/26/18 08:34 Dose: 5 mg Lorazepam (Ativan) 1 mg PO BEDTIME PRN PRN Reason: Anxiety Last Admin: 05/18/18 02:47 Dose: 1 mg Ondansetron HCl (Zofran) 4 mg IVPUSH Q4H PRN PRN Reason: Nausea/Vomiting Sodium Chloride (Saline Flush) 10 ml FLUSH ASDIRECTED PRN PRN Reason: Keep Vein Open Last Admin: 05/11/18 15:42 Dose: 10 ml Sodium Chloride (Saline Flush) 2.5 ml FLUSH ASDIRECTED PRN PRN Reason: Keep Vein Open Last Admin: 05/11/18 15:42 Dose: 2.5 ml Sodium Chloride (Saline Flush) 10 ml FLUSH ASDIRECTED PRN PRN Reason: Keep Vein Open Sodium Chloride (Saline Flush) 2.5 ml FLUSH ASDIRECTED PRN PRN Reason: Keep Vein Open Discontinued Medications Enoxaparin Sodium (Lovenox) 30 mg SUBCUT Q24H [facility] Last Admin: 05/11/18 19:42 Dose: 30 mg Sodium Chloride (Normal Saline) 1,000 mls @ 999 mls/hr IV .Bolus ONE Stop: 05/11/18 15:33 Last Admin: 05/11/18 15:15 Dose: 999 mls/hr Ciprofloxacin/Dextrose 400 mg/ (Premix) 200 mls @ 200 mls/hr IV Q24H [facility] Last Admin: 05/18/18 18:30 Dose: Not Given Sodium Chloride (Normal Saline) 1,000 mls @ 150 mls/hr IV ASDIRECTED [facility] Last Admin: 05/14/18 00:32 Dose: 150 mls/hr Insulin Aspart (Novolog) 15 unit SUBCUT ONETIME ONE Stop: 05/11/18 21:12 Last Admin: 05/11/18 21:26 Dose: 15 units Insulin Aspart (Novolog) 10 unit SUBCUT ONETIME ONE Stop: 05/11/18 23:01 Last Admin: 05/11/18 23:05 Dose: 10 units Insulin Aspart (Novolog) 10 unit SUBCUT ONETIME ONE Stop: 05/12/18 01:06 Last Admin: 05/12/18 01:09 Dose: 10 units Insulin Aspart (Novolog) 12 unit SUBCUT ONETIME ONE Stop: 05/14/18 08:57 Last Admin: 05/14/18 09:20 Dose: 10 units Morphine Sulfate (Morphine) 2 mg IVPUSH Q2H PRN PRN Reason: Pain (severe 7-10) Stop: 05/12/18 18:16 Pantoprazole Sodium (Protonix) 40 mg PO ACBREAKFAST [facility] Last Admin: 05/17/18 07:00 Dose: 40 mg Potassium Chloride (Klor-Con M20) 40 meq PO BID [facility] Last Admin: 05/17/18 08:06 Dose: 40 meq Sodium Phosphate (Neutra-Phos) 250 mg PO QID [facility] Last Admin: 05/24/18 06:25 Dose: 250 mg - Exam Lungs: Clear to Auscultation, Normal Respiratory Effort Cardiovascular: Regular Rate, Regular Rhythm - Problem List & Annotations (1) Failure to thrive SNOMED Code(s): 30127280 Code(s): [id number] - Status: Acute Current Visit: Yes (2) Dehydration SNOMED Code(s): 09398129 Code(s): E86.0 - DEHYDRATION Status: Resolved Current Visit: Yes (3) Unable to ambulate SNOMED Code(s): 565088268 Code(s): R26.2 - DIFFICULTY IN WALKING, NOT ELSEWHERE CLASSIFIED Status: Acute Current Visit: No (4) Uncontrolled diabetes mellitus SNOMED Code(s): 95114759, 091828131 Code(s): E11.65 - TYPE 2 DIABETES MELLITUS WITH HYPERGLYCEMIA Status: Acute Current Visit: No (5) Sacral decubitus ulcer SNOMED Code(s): 832860406 Code(s): L89.159 - PRESSURE ULCER OF SACRAL REGION, UNSPECIFIED STAGE Status: Chronic Current Visit: No Qualifiers: Pressure injury stage: stage 1 Qualified Code(s): L89.151 - Pressure ulcer of sacral region, stage 1 (6) HTN (hypertension) SNOMED Code(s): 68866979 Code(s): I10 - ESSENTIAL (PRIMARY) HYPERTENSION Status: Chronic Current Visit: No Qualifiers: Hypertension type: essential hypertension Qualified Code(s): I10 - Essential (primary) hypertension (7) DM type 2 (diabetes mellitus, type 2) SNOMED Code(s): 49783015 Code(s): E11.9 - TYPE 2 DIABETES MELLITUS WITHOUT COMPLICATIONS Status: Chronic Current Visit: No Qualifiers: Diabetes mellitus parts counterman insulin use: with halfway use Diabetes mellitus complication status: with skin complications Diabetes mellitus complication detail: with other skin ulcer Qualified Code(s): E11.622 - Type 2 diabetes mellitus with other skin ulcer; Z79.4 - termination clerk (current) use of insulin - Problem List Review Problem List Initiated/Reviewed/Updated: Yes - Plan Plan:: Awaiting Disposition decision from [facility] per case management. I saw and evaluated the patient. Discussed with resident and agree with residents findings and plan as documented in the residents note.
[2018-05-26] MEDS: Insulin Detemir 100 Units/ML 3 ML Pen SUBCUT SCH (21:44)
[2018-05-27] MEDS: Heparin Sodium 5,000 Units/ML Vial SUBCUT SCH ×3 (06:04→21:16)
[2018-05-27] MEDS: Insulin Aspart 100 Units/ML 3 ML Pen SUBCUT SCH ×3 (06:30→17:45)
[2018-05-27] MEDS: Lisinopril 5 MG Tab PO SCH (08:31)
[2018-05-27] MEDS: amLODIPine 5 MG Tab PO SCH (08:31)
[2018-05-27] MEDS: Docusate Sodium 100 MG Cap PO SCH (08:31)
--- NOTE | 2018-05-27 12:37 | PCM.PN ---
<Ryan Roche Z - Last Filed: 05/27/18 18:07> - General Info Date of Service: 05/27/18 Subjective Update: Stable, no acute changes - Patient Data Vitals - Most Recent: Last Vital Signs Temp 37.2 C 05/27/18 12:00 Pulse 80 05/27/18 12:00 Resp 16 05/27/18 12:00 BP 145/66 H 05/27/18 12:00 Pulse Ox 94 L 05/27/18 12:00 Weight - Most Recent: 45.359 kg I&O - Last 24 Hours: Intake & Output 05/26/18 05/27/18 05/27/18 22:59 06:59 14:59 Intake Total 620 400 Output Total 1000 1350 Balance -380 -950 Lab Results Last 24 Hours: Laboratory Results - last 24 hr 05/26/18 05/26/18 05/27/18 Range/Units 17:01 21:42 06:04 POC Glucose 241 H 229 H 126 H (60-110) mg/dL 05/27/18 Range/Units 11:56 POC Glucose 260 H (60-110) mg/dL Med Orders - Current: Current Medications Acetaminophen (Tylenol) 650 mg PO Q6H PRN PRN Reason: Pain (mild 1-3) Last Admin: 05/24/18 17:49 Dose: 650 mg Amlodipine Besylate (Norvasc) 5 mg PO DAILY [facility] Last Admin: 05/27/18 08:31 Dose: 5 mg Bisacodyl (Dulcolax) 10 mg PO DAILY PRN PRN Reason: Constipation Last Admin: 05/25/18 08:40 Dose: 10 mg Docusate Sodium (Colace) 100 mg PO DAILY [facility] Last Admin: 05/27/18 08:31 Dose: 100 mg Heparin Sodium (Porcine) (Heparin Sodium) 5,000 units SUBCUT Q8H [facility] Last Admin: 05/27/18 06:04 Dose: 5,000 units Insulin Aspart (Novolog) 0 unit SUBCUT TIDAC [facility]; Protocol Last Admin: 05/27/18 11:56 Dose: 9 units Insulin Detemir (Levemir) 10 unit SUBCUT BEDTIME [facility] Last Admin: 05/26/18 21:44 Dose: 10 units Lisinopril (Prinivil) 5 mg PO DAILY [facility] Last Admin: 05/27/18 08:31 Dose: 5 mg Lorazepam (Ativan) 1 mg PO BEDTIME PRN PRN Reason: Anxiety Last Admin: 05/18/18 02:47 Dose: 1 mg Ondansetron HCl (Zofran) 4 mg IVPUSH Q4H PRN PRN Reason: Nausea/Vomiting Sodium Chloride (Saline Flush) 10 ml FLUSH ASDIRECTED PRN PRN Reason: Keep Vein Open Last Admin: 05/11/18 15:42 Dose: 10 ml Sodium Chloride (Saline Flush) 2.5 ml FLUSH ASDIRECTED PRN PRN Reason: Keep Vein Open Last Admin: 05/11/18 15:42 Dose: 2.5 ml Sodium Chloride (Saline Flush) 10 ml FLUSH ASDIRECTED PRN PRN Reason: Keep Vein Open Sodium Chloride (Saline Flush) 2.5 ml FLUSH ASDIRECTED PRN PRN Reason: Keep Vein Open Discontinued Medications Enoxaparin Sodium (Lovenox) 30 mg SUBCUT Q24H [facility] Last Admin: 05/11/18 19:42 Dose: 30 mg Sodium Chloride (Normal Saline) 1,000 mls @ 999 mls/hr IV .Bolus ONE Stop: 05/11/18 15:33 Last Admin: 05/11/18 15:15 Dose: 999 mls/hr Ciprofloxacin/Dextrose 400 mg/ (Premix) 200 mls @ 200 mls/hr IV Q24H [facility] Last Admin: 05/18/18 18:30 Dose: Not Given Sodium Chloride (Normal Saline) 1,000 mls @ 150 mls/hr IV ASDIRECTED [facility] Last Admin: 05/14/18 00:32 Dose: 150 mls/hr Insulin Aspart (Novolog) 15 unit SUBCUT ONETIME ONE Stop: 05/11/18 21:12 Last Admin: 05/11/18 21:26 Dose: 15 units Insulin Aspart (Novolog) 10 unit SUBCUT ONETIME ONE Stop: 05/11/18 23:01 Last Admin: 05/11/18 23:05 Dose: 10 units Insulin Aspart (Novolog) 10 unit SUBCUT ONETIME ONE Stop: 05/12/18 01:06 Last Admin: 05/12/18 01:09 Dose: 10 units Insulin Aspart (Novolog) 12 unit SUBCUT ONETIME ONE Stop: 05/14/18 08:57 Last Admin: 05/14/18 09:20 Dose: 10 units Morphine Sulfate (Morphine) 2 mg IVPUSH Q2H PRN PRN Reason: Pain (severe 7-10) Stop: 05/12/18 18:16 Pantoprazole Sodium (Protonix) 40 mg PO ACBREAKFAST [facility] Last Admin: 05/17/18 07:00 Dose: 40 mg Potassium Chloride (Klor-Con M20) 40 meq PO BID [facility] Last Admin: 05/17/18 08:06 Dose: 40 meq Sodium Phosphate (Neutra-Phos) 250 mg PO QID [facility] Last Admin: 05/24/18 06:25 Dose: 250 mg - Exam Lungs: Clear to Auscultation, Normal Respiratory Effort Cardiovascular: Regular Rate, Regular Rhythm - Problem List & Annotations (1) Failure to thrive SNOMED Code(s): 30240052 Code(s): LWP0334 - Status: Acute Current Visit: Yes (2) Dehydration SNOMED Code(s): 73215609 Code(s): E86.0 - DEHYDRATION Status: Resolved Current Visit: Yes (3) Unable to ambulate SNOMED Code(s): 087108205 Code(s): R26.2 - DIFFICULTY IN WALKING, NOT ELSEWHERE CLASSIFIED Status: Acute Current Visit: No (4) Uncontrolled diabetes mellitus SNOMED Code(s): 98739103, 167887530 Code(s): E11.65 - TYPE 2 DIABETES MELLITUS WITH HYPERGLYCEMIA Status: Acute Current Visit: No (5) Sacral decubitus ulcer SNOMED Code(s): 796853779 Code(s): L89.159 - PRESSURE ULCER OF SACRAL REGION, UNSPECIFIED STAGE Status: Chronic Current Visit: No Qualifiers: Pressure injury stage: stage 1 Qualified Code(s): L89.151 - Pressure ulcer of sacral region, stage 1 (6) HTN (hypertension) SNOMED Code(s): 76703880 Code(s): I10 - ESSENTIAL (PRIMARY) HYPERTENSION Status: Chronic Current Visit: No Qualifiers: Hypertension type: essential hypertension Qualified Code(s): I10 - Essential (primary) hypertension (7) DM type 2 (diabetes mellitus, type 2) SNOMED Code(s): 73612522 Code(s): E11.9 - TYPE 2 DIABETES MELLITUS WITHOUT COMPLICATIONS Status: Chronic Current Visit: No Qualifiers: Diabetes mellitus mcfp insulin use: with mcfp use Diabetes mellitus complication status: with skin complications Diabetes mellitus complication detail: with other skin ulcer Qualified Code(s): E11.622 - Type 2 diabetes mellitus with other skin ulcer; Z79.4 - halfway (current) use of insulin - Problem List Review Problem List Initiated/Reviewed/Updated: Yes - Plan Plan:: Awaiting Disposition decision from [facility] per case management. Pt likely to be accepted and transferred this upcoming Thursday per Case Management. I saw and evaluated the patient. Discussed with resident and agree with residents findings and plan as documented in the residents note. <Sd Morse - Last Filed: 05/27/18 18:15> - Patient Data Vitals - Most Recent: Last Vital Signs Temp 37.3 C 05/27/18 16:00 Pulse 77 05/27/18 16:00 Resp 16 05/27/18 16:00 BP 146/68 H 05/27/18 16:00 Pulse Ox 93 L 05/27/18 16:00 I&O - Last 24 Hours: Intake & Output 05/27/18 05/27/18 05/27/18 06:59 14:59 22:59 Intake Total 400 Output Total 1350 Balance -950 Lab Results Last 24 Hours: Laboratory Results - last 24 hr 05/26/18 05/26/18 05/27/18 Range/Units 17:01 21:42 06:04 POC Glucose 241 H 229 H 126 H (60-110) mg/dL 05/27/18 05/27/18 Range/Units 11:56 17:42 POC Glucose 260 H 193 H (60-110) mg/dL Med Orders - Current: Current Medications Acetaminophen (Tylenol) 650 mg PO Q6H PRN PRN Reason: Pain (mild 1-3) Last Admin: 05/24/18 17:49 Dose: 650 mg Amlodipine Besylate (Norvasc) 5 mg PO DAILY [facility] Last Admin: 05/27/18 08:31 Dose: 5 mg Bisacodyl (Dulcolax) 10 mg PO DAILY PRN PRN Reason: Constipation Last Admin: 05/25/18 08:40 Dose: 10 mg Docusate Sodium (Colace) 100 mg PO DAILY [facility] Last Admin: 05/27/18 08:31 Dose: 100 mg Heparin Sodium (Porcine) (Heparin Sodium) 5,000 units SUBCUT Q8H [facility] Last Admin: 05/27/18 15:45 Dose: 5,000 units Insulin Aspart (Novolog) 0 unit SUBCUT TIDAC [facility]; Protocol Last Admin: 05/27/18 17:45 Dose: 3 units Insulin Detemir (Levemir) 10 unit SUBCUT BEDTIME [facility] Last Admin: 05/26/18 21:44 Dose: 10 units Lisinopril (Prinivil) 5 mg PO DAILY [facility] Last Admin: 05/27/18 08:31 Dose: 5 mg Lorazepam (Ativan) 1 mg PO BEDTIME PRN PRN Reason: Anxiety Last Admin: 05/18/18 02:47 Dose: 1 mg Ondansetron HCl (Zofran) 4 mg IVPUSH Q4H PRN PRN Reason: Nausea/Vomiting Sodium Chloride (Saline Flush) 10 ml FLUSH ASDIRECTED PRN PRN Reason: Keep Vein Open Last Admin: 05/11/18 15:42 Dose: 10 ml Sodium Chloride (Saline Flush) 2.5 ml FLUSH ASDIRECTED PRN PRN Reason: Keep Vein Open Last Admin: 05/11/18 15:42 Dose: 2.5 ml Sodium Chloride (Saline Flush) 10 ml FLUSH ASDIRECTED PRN PRN Reason: Keep Vein Open Sodium Chloride (Saline Flush) 2.5 ml FLUSH ASDIRECTED PRN PRN Reason: Keep Vein Open Discontinued Medications Enoxaparin Sodium (Lovenox) 30 mg SUBCUT Q24H [facility] Last Admin: 05/11/18 19:42 Dose: 30 mg Sodium Chloride (Normal Saline) 1,000 mls @ 999 mls/hr IV .Bolus ONE Stop: 05/11/18 15:33 Last Admin: 05/11/18 15:15 Dose: 999 mls/hr Ciprofloxacin/Dextrose 400 mg/ (Premix) 200 mls @ 200 mls/hr IV Q24H [facility] Last Admin: 05/18/18 18:30 Dose: Not Given Sodium Chloride (Normal Saline) 1,000 mls @ 150 mls/hr IV ASDIRECTED [facility] Last Admin: 05/14/18 00:32 Dose: 150 mls/hr Insulin Aspart (Novolog) 15 unit SUBCUT ONETIME ONE Stop: 05/11/18 21:12 Last Admin: 05/11/18 21:26 Dose: 15 units Insulin Aspart (Novolog) 10 unit SUBCUT ONETIME ONE Stop: 05/11/18 23:01 Last Admin: 05/11/18 23:05 Dose: 10 units Insulin Aspart (Novolog) 10 unit SUBCUT ONETIME ONE Stop: 05/12/18 01:06 Last Admin: 05/12/18 01:09 Dose: 10 units Insulin Aspart (Novolog) 12 unit SUBCUT ONETIME ONE Stop: 05/14/18 08:57 Last Admin: 05/14/18 09:20 Dose: 10 units Morphine Sulfate (Morphine) 2 mg IVPUSH Q2H PRN PRN Reason: Pain (severe 7-10) Stop: 05/12/18 18:16 Pantoprazole Sodium (Protonix) 40 mg PO ACBREAKFAST [facility] Last Admin: 05/17/18 07:00 Dose: 40 mg Potassium Chloride (Klor-Con M20) 40 meq PO BID [facility] Last Admin: 05/17/18 08:06 Dose: 40 meq Sodium Phosphate (Neutra-Phos) 250 mg PO QID [facility] Last Admin: 05/24/18 06:25 Dose: 250 mg - Plan Plan:: I was present with the resident during the history and exam. I discussed the case with the resident and agree with the findings and plan as documented in the residents note.
[2018-05-27] MEDS: Insulin Detemir 100 Units/ML 3 ML Pen SUBCUT SCH (21:15)
[2018-05-28] MEDS: Heparin Sodium 5,000 Units/ML Vial SUBCUT SCH ×2 (06:24→14:41)
[2018-05-28] MEDS: Insulin Aspart 100 Units/ML 3 ML Pen SUBCUT SCH ×3 (06:55→17:16)
[2018-05-28] MEDS: Docusate Sodium 100 MG Cap PO SCH (08:25)
[2018-05-28] MEDS: amLODIPine 5 MG Tab PO SCH (08:25)
[2018-05-28] MEDS: Lisinopril 5 MG Tab PO SCH (08:26)
--- NOTE | 2018-05-28 11:21 | PCM.PN ---
<Ryan Roche Z - Last Filed: 05/28/18 11:17> - General Info Date of Service: 05/28/18 Subjective Update: Patient continues to be stable, awaiting placement at [facility] on Thursday - Patient Data Vitals - Most Recent: Last Vital Signs Temp 37.0 C 05/28/18 07:20 Pulse 71 05/28/18 07:20 Resp 16 05/28/18 07:20 BP 167/76 H 05/28/18 08:26 Pulse Ox 92 L 05/28/18 07:20 Weight - Most Recent: 45.359 kg I&O - Last 24 Hours: Intake & Output 05/27/18 05/28/18 05/28/18 22:59 06:59 14:59 Intake Total 700 480 Output Total 500 1800 Balance 200 -1320 Lab Results Last 24 Hours: Laboratory Results - last 24 hr 05/27/18 05/27/18 05/27/18 Range/Units 11:56 17:42 20:24 POC Glucose 260 H 193 H 249 H (60-110) mg/dL Med Orders - Current: Current Medications Acetaminophen (Tylenol) 650 mg PO Q6H PRN PRN Reason: Pain (mild 1-3) Last Admin: 05/24/18 17:49 Dose: 650 mg Amlodipine Besylate (Norvasc) 5 mg PO DAILY [facility] Last Admin: 05/28/18 08:25 Dose: 5 mg Bisacodyl (Dulcolax) 10 mg PO DAILY PRN PRN Reason: Constipation Last Admin: 05/25/18 08:40 Dose: 10 mg Docusate Sodium (Colace) 100 mg PO DAILY [facility] Last Admin: 05/28/18 08:25 Dose: 100 mg Heparin Sodium (Porcine) (Heparin Sodium) 5,000 units SUBCUT Q8H [facility] Last Admin: 05/28/18 06:24 Dose: 5,000 units Insulin Aspart (Novolog) 0 unit SUBCUT TIDAC [facility]; Protocol Last Admin: 05/28/18 06:55 Dose: Not Given Insulin Detemir (Levemir) 10 unit SUBCUT BEDTIME [facility] Last Admin: 05/27/18 21:15 Dose: 10 units Lisinopril (Prinivil) 5 mg PO DAILY [facility] Last Admin: 05/28/18 08:26 Dose: 5 mg Lorazepam (Ativan) 1 mg PO BEDTIME PRN PRN Reason: Anxiety Last Admin: 05/18/18 02:47 Dose: 1 mg Ondansetron HCl (Zofran) 4 mg IVPUSH Q4H PRN PRN Reason: Nausea/Vomiting Sodium Chloride (Saline Flush) 10 ml FLUSH ASDIRECTED PRN PRN Reason: Keep Vein Open Last Admin: 05/11/18 15:42 Dose: 10 ml Sodium Chloride (Saline Flush) 2.5 ml FLUSH ASDIRECTED PRN PRN Reason: Keep Vein Open Last Admin: 05/11/18 15:42 Dose: 2.5 ml Sodium Chloride (Saline Flush) 10 ml FLUSH ASDIRECTED PRN PRN Reason: Keep Vein Open Sodium Chloride (Saline Flush) 2.5 ml FLUSH ASDIRECTED PRN PRN Reason: Keep Vein Open Discontinued Medications Enoxaparin Sodium (Lovenox) 30 mg SUBCUT Q24H [facility] Last Admin: 05/11/18 19:42 Dose: 30 mg Sodium Chloride (Normal Saline) 1,000 mls @ 999 mls/hr IV .Bolus ONE Stop: 05/11/18 15:33 Last Admin: 05/11/18 15:15 Dose: 999 mls/hr Ciprofloxacin/Dextrose 400 mg/ (Premix) 200 mls @ 200 mls/hr IV Q24H [facility] Last Admin: 05/18/18 18:30 Dose: Not Given Sodium Chloride (Normal Saline) 1,000 mls @ 150 mls/hr IV ASDIRECTED [facility] Last Admin: 05/14/18 00:32 Dose: 150 mls/hr Insulin Aspart (Novolog) 15 unit SUBCUT ONETIME ONE Stop: 05/11/18 21:12 Last Admin: 05/11/18 21:26 Dose: 15 units Insulin Aspart (Novolog) 10 unit SUBCUT ONETIME ONE Stop: 05/11/18 23:01 Last Admin: 05/11/18 23:05 Dose: 10 units Insulin Aspart (Novolog) 10 unit SUBCUT ONETIME ONE Stop: 05/12/18 01:06 Last Admin: 05/12/18 01:09 Dose: 10 units Insulin Aspart (Novolog) 12 unit SUBCUT ONETIME ONE Stop: 05/14/18 08:57 Last Admin: 02/15/19 09:20 Dose: 10 units Morphine Sulfate (Morphine) 2 mg IVPUSH Q2H PRN PRN Reason: Pain (severe 7-10) Stop: 05/12/18 18:16 Pantoprazole Sodium (Protonix) 40 mg PO ACBREAKFAST [facility] Last Admin: 05/17/18 07:00 Dose: 40 mg Potassium Chloride (Klor-Con M20) 40 meq PO BID [facility] Last Admin: 05/17/18 08:06 Dose: 40 meq Sodium Phosphate (Neutra-Phos) 250 mg PO QID [facility] Last Admin: 05/24/18 06:25 Dose: 250 mg - Exam General: Alert, Cooperative, No Acute Distress Lungs: Clear to Auscultation, Normal Respiratory Effort Cardiovascular: Regular Rate, Regular Rhythm - Problem List & Annotations (1) Failure to thrive SNOMED Code(s): 12640160 Code(s): LTZ2682 - Status: Acute Current Visit: Yes (2) Dehydration SNOMED Code(s): 75327203 Code(s): E86.0 - DEHYDRATION Status: Resolved Current Visit: Yes (3) Unable to ambulate SNOMED Code(s): 276022145 Code(s): R26.2 - DIFFICULTY IN WALKING, NOT ELSEWHERE CLASSIFIED Status: Acute Current Visit: No (4) Uncontrolled diabetes mellitus SNOMED Code(s): 89535815, 417924249 Code(s): E11.65 - TYPE 2 DIABETES MELLITUS WITH HYPERGLYCEMIA Status: Acute Current Visit: No (5) Sacral decubitus ulcer SNOMED Code(s): 638420531 Code(s): L89.159 - PRESSURE ULCER OF SACRAL REGION, UNSPECIFIED STAGE Status: Chronic Current Visit: No Qualifiers: Pressure injury stage: stage 1 Qualified Code(s): L89.151 - Pressure ulcer of sacral region, stage 1 (6) HTN (hypertension) SNOMED Code(s): 63284816 Code(s): I10 - ESSENTIAL (PRIMARY) HYPERTENSION Status: Chronic Current Visit: No Qualifiers: Hypertension type: essential hypertension Qualified Code(s): I10 - Essential (primary) hypertension (7) DM type 2 (diabetes mellitus, type 2) SNOMED Code(s): 85271066 Code(s): E11.9 - TYPE 2 DIABETES MELLITUS WITHOUT COMPLICATIONS Status: Chronic Current Visit: No Qualifiers: Diabetes mellitus mcfp insulin use: with mcfp use Diabetes mellitus complication status: with skin complications Diabetes mellitus complication detail: with other skin ulcer Qualified Code(s): E11.622 - Type 2 diabetes mellitus with other skin ulcer; Z79.4 - care home (current) use of insulin - Problem List Review Problem List Initiated/Reviewed/Updated: Yes - Plan Plan:: 82-year-old female currently stable awaiting alf disposition sent to failure to thrive due to poor living conditions. -Discharged to [facility] this upcoming Thursday. -Patient is stable -FEN: Not on any IV fluids, electrolytes checked were within normal limits, [employer] diet I was present with the resident during the history and exam. I discussed the case with the resident and agree with the findings and plan as documented in the residents note. <Sd Morse - Last Filed: 05/28/18 11:33> - Patient Data Vitals - Most Recent: Last Vital Signs Temp 37.0 C 05/28/18 07:20 Pulse 71 05/28/18 07:20 Resp 16 05/28/18 07:20 BP 167/76 H 05/28/18 08:26 Pulse Ox 92 L 05/28/18 07:20 I&O - Last 24 Hours: Intake & Output 05/27/18 05/28/18 05/28/18 22:59 06:59 14:59 Intake Total 700 480 Output Total 500 1800 Balance 200 -1320 Lab Results Last 24 Hours: Laboratory Results - last 24 hr 05/27/18 05/27/18 05/27/18 Range/Units 11:56 17:42 20:24 POC Glucose 260 H 193 H 249 H (60-110) mg/dL Med Orders - Current: Current Medications Acetaminophen (Tylenol) 650 mg PO Q6H PRN PRN Reason: Pain (mild 1-3) Last Admin: 05/24/18 17:49 Dose: 650 mg Amlodipine Besylate (Norvasc) 5 mg PO DAILY [facility] Last Admin: 05/28/18 08:25 Dose: 5 mg Bisacodyl (Dulcolax) 10 mg PO DAILY PRN PRN Reason: Constipation Last Admin: 05/25/18 08:40 Dose: 10 mg Docusate Sodium (Colace) 100 mg PO DAILY [facility] Last Admin: 05/28/18 08:25 Dose: 100 mg Heparin Sodium (Porcine) (Heparin Sodium) 5,000 units SUBCUT Q8H [facility] Last Admin: 05/28/18 06:24 Dose: 5,000 units Insulin Aspart (Novolog) 0 unit SUBCUT TIDAC [facility]; Protocol Last Admin: 05/28/18 06:55 Dose: Not Given Insulin Detemir (Levemir) 10 unit SUBCUT BEDTIME [facility] Last Admin: 05/27/18 21:15 Dose: 10 units Lisinopril (Prinivil) 5 mg PO DAILY [facility] Last Admin: 05/28/18 08:26 Dose: 5 mg Lorazepam (Ativan) 1 mg PO BEDTIME PRN PRN Reason: Anxiety Last Admin: 05/18/18 02:47 Dose: 1 mg Ondansetron HCl (Zofran) 4 mg IVPUSH Q4H PRN PRN Reason: Nausea/Vomiting Sodium Chloride (Saline Flush) 10 ml FLUSH ASDIRECTED PRN PRN Reason: Keep Vein Open Last Admin: 05/11/18 15:42 Dose: 10 ml Sodium Chloride (Saline Flush) 2.5 ml FLUSH ASDIRECTED PRN PRN Reason: Keep Vein Open Last Admin: 05/11/18 15:42 Dose: 2.5 ml Sodium Chloride (Saline Flush) 10 ml FLUSH ASDIRECTED PRN PRN Reason: Keep Vein Open Sodium Chloride (Saline Flush) 2.5 ml FLUSH ASDIRECTED PRN PRN Reason: Keep Vein Open Discontinued Medications Enoxaparin Sodium (Lovenox) 30 mg SUBCUT Q24H [facility] Last Admin: 05/11/18 19:42 Dose: 30 mg Sodium Chloride (Normal Saline) 1,000 mls @ 999 mls/hr IV .Bolus ONE Stop: 05/11/18 15:33 Last Admin: 05/11/18 15:15 Dose: 999 mls/hr Ciprofloxacin/Dextrose 400 mg/ (Premix) 200 mls @ 200 mls/hr IV Q24H [facility] Last Admin: 05/18/18 18:30 Dose: Not Given Sodium Chloride (Normal Saline) 1,000 mls @ 150 mls/hr IV ASDIRECTED [facility] Last Admin: 05/14/18 00:32 Dose: 150 mls/hr Insulin Aspart (Novolog) 15 unit SUBCUT ONETIME ONE Stop: 05/11/18 21:12 Last Admin: 05/11/18 21:26 Dose: 15 units Insulin Aspart (Novolog) 10 unit SUBCUT ONETIME ONE Stop: 05/11/18 23:01 Last Admin: 05/11/18 23:05 Dose: 10 units Insulin Aspart (Novolog) 10 unit SUBCUT ONETIME ONE Stop: 05/12/18 01:06 Last Admin: 05/12/18 01:09 Dose: 10 units Insulin Aspart (Novolog) 12 unit SUBCUT ONETIME ONE Stop: 05/14/18 08:57 Last Admin: 05/14/18 09:20 Dose: 10 units Morphine Sulfate (Morphine) 2 mg IVPUSH Q2H PRN PRN Reason: Pain (severe 7-10) Stop: 05/12/18 18:16 Pantoprazole Sodium (Protonix) 40 mg PO ACBREAKFAST [facility] Last Admin: 05/17/18 07:00 Dose: 40 mg Potassium Chloride (Klor-Con M20) 40 meq PO BID [facility] Last Admin: 05/17/18 08:06 Dose: 40 meq Sodium Phosphate (Neutra-Phos) 250 mg PO QID [facility] Last Admin: 05/24/18 06:25 Dose: 250 mg - Plan Plan:: I was present with the resident during the history and exam. I discussed the case with the resident and agree with the findings and plan as documented in the residents note.
[2018-05-28] MEDS: Insulin Detemir 100 Units/ML 3 ML Pen SUBCUT SCH (21:12)
[2018-05-29] MEDS: Insulin Aspart 100 Units/ML 3 ML Pen SUBCUT SCH ×3 (06:48→17:10)
--- NOTE | 2018-05-29 07:28 | PCM.PN ---
- General Info Date of Service: 05/29/18 Admission Dx/Problem (Free Text): Admission Diagnosis/Problem Admission Diagnosis/Problem Dehydration, dementia, behavioral issues, confusion Subjective Update: The patient is an 82-year-old lady who was admitted for acute hospitalization on May 11, 2018. This was due to dehydration and some social related issues. She had been found by her caregiver. The patient does have a significant language barrier and that she speaks a remote dialect of Mandarin and has a underlying dementia. [facility] Family is not available. The patient communicates with grunts and pointing. Functional Status: Reports: Pain Controlled - Review of Systems Systems Review Comment:: Not obtainable. - Patient Data Vitals - Most Recent: Last Vital Signs Temp 37.2 C 05/29/18 04:46 Pulse 67 05/29/18 04:46 Resp 18 05/29/18 04:46 BP 166/73 H 05/29/18 04:46 Pulse Ox 95 05/29/18 04:46 Weight - Most Recent: 45.359 kg I&O - Last 24 Hours: Intake & Output 05/28/18 05/29/18 05/29/18 22:59 06:59 14:59 Intake Total 880 500 Output Total 650 950 Balance 230 -450 Lab Results Last 24 Hours: Laboratory Results - last 24 hr 05/28/18 05/28/18 05/28/18 Range/Units 06:17 11:38 16:17 WBC 5.31 (4.0-11.0) K/uL RBC 2.77 L (4.30-5.90) M/uL Hgb 8.3 L (12.0-16.0) g/dL Hct 25.3 L (36.0-46.0) % MCV 91.3 (80.0-98.0) fL MCH 30.0 (27.0-32.0) pg MCHC 32.8 (31.0-37.0) g/dL RDW Std Deviation 44.0 (28.0-62.0) fl RDW Coeff of Dipti 13 (11.0-15.0) % Plt Count 277 (150-400) K/uL MPV 9.40 (7.40-12.00) fL Neut % (Auto) 62.8 (48.0-80.0) % Lymph % (Auto) 23.7 (16.0-40.0) % Alexander % (Auto) 9.8 (0.0-15.0) % Eos % (Auto) 2.8 (0.0-7.0) % Baso % (Auto) 0.9 (0.0-1.5) % Neut # (Auto) 3.3 (1.4-5.7) K/uL Lymph # (Auto) 1.3 (0.6-2.4) K/uL Alexander # (Auto) 0.5 (0.0-0.8) K/uL Eos # (Auto) 0.2 (0.0-0.7) K/uL Baso # (Auto) 0.1 (0.0-0.1) K/uL Nucleated RBC % 0.0 /100WBC Nucleated RBCs # 0 K/uL POC Glucose 138 H 236 H (60-110) mg/dL 05/28/18 05/28/18 Range/Units 17:12 21:08 WBC (4.0-11.0) K/uL RBC (4.30-5.90) M/uL Hgb (12.0-16.0) g/dL Hct (36.0-46.0) % MCV (80.0-98.0) fL MCH (27.0-32.0) pg MCHC (31.0-37.0) g/dL RDW Std Deviation (28.0-62.0) fl RDW Coeff of Dipti (11.0-15.0) % Plt Count (150-400) K/uL MPV (7.40-12.00) fL Neut % (Auto) (48.0-80.0) % Lymph % (Auto) (16.0-40.0) % Alexander % (Auto) (0.0-15.0) % Eos % (Auto) (0.0-7.0) % Baso % (Auto) (0.0-1.5) % Neut # (Auto) (1.4-5.7) K/uL Lymph # (Auto) (0.6-2.4) K/uL Alexander # (Auto) (0.0-0.8) K/uL Eos # (Auto) (0.0-0.7) K/uL Baso # (Auto) (0.0-0.1) K/uL Nucleated RBC % /100WBC Nucleated RBCs # K/uL POC Glucose 207 H 195 H (60-110) mg/dL Med Orders - Current: Current Medications Acetaminophen (Tylenol) 650 mg PO Q6H PRN PRN Reason: Pain (mild 1-3) Last Admin: 05/24/18 17:49 Dose: 650 mg Amlodipine Besylate (Norvasc) 5 mg PO DAILY [facility] Last Admin: 05/28/18 08:25 Dose: 5 mg Bisacodyl (Dulcolax) 10 mg PO DAILY PRN PRN Reason: Constipation Last Admin: 05/25/18 08:40 Dose: 10 mg Docusate Sodium (Colace) 100 mg PO DAILY [facility] Last Admin: 05/28/18 08:25 Dose: 100 mg Enoxaparin Sodium (Lovenox) 30 mg SUBCUT DAILY [facility] Insulin Aspart (Novolog) 0 unit SUBCUT TIDAC [facility]; Protocol Last Admin: 05/29/18 06:48 Dose: Not Given Insulin Detemir (Levemir) 10 unit SUBCUT BEDTIME [facility] Last Admin: 05/28/18 21:12 Dose: 10 units Lisinopril (Prinivil) 5 mg PO DAILY [facility] Last Admin: 05/28/18 08:26 Dose: 5 mg Lorazepam (Ativan) 1 mg PO BEDTIME PRN PRN Reason: Anxiety Last Admin: 05/18/18 02:47 Dose: 1 mg Ondansetron HCl (Zofran) 4 mg IVPUSH Q4H PRN PRN Reason: Nausea/Vomiting Sodium Chloride (Saline Flush) 10 ml FLUSH ASDIRECTED PRN PRN Reason: Keep Vein Open Last Admin: 05/11/18 15:42 Dose: 10 ml Sodium Chloride (Saline Flush) 2.5 ml FLUSH ASDIRECTED PRN PRN Reason: Keep Vein Open Last Admin: 05/11/18 15:42 Dose: 2.5 ml Sodium Chloride (Saline Flush) 10 ml FLUSH ASDIRECTED PRN PRN Reason: Keep Vein Open Sodium Chloride (Saline Flush) 2.5 ml FLUSH ASDIRECTED PRN PRN Reason: Keep Vein Open Discontinued Medications Enoxaparin Sodium (Lovenox) 30 mg SUBCUT Q24H [facility] Last Admin: 05/11/18 19:42 Dose: 30 mg Heparin Sodium (Porcine) (Heparin Sodium) 5,000 units SUBCUT Q8H [facility] Last Admin: 05/28/18 14:41 Dose: Not Given Sodium Chloride (Normal Saline) 1,000 mls @ 999 mls/hr IV .Bolus ONE Stop: 05/11/18 15:33 Last Admin: 05/11/18 15:15 Dose: 999 mls/hr Ciprofloxacin/Dextrose 400 mg/ (Premix) 200 mls @ 200 mls/hr IV Q24H [facility] Last Admin: 05/18/18 18:30 Dose: Not Given Sodium Chloride (Normal Saline) 1,000 mls @ 150 mls/hr IV ASDIRECTED [facility] Last Admin: 05/14/18 00:32 Dose: 150 mls/hr Insulin Aspart (Novolog) 15 unit SUBCUT ONETIME ONE Stop: 05/11/18 21:12 Last Admin: 05/11/18 21:26 Dose: 15 units Insulin Aspart (Novolog) 10 unit SUBCUT ONETIME ONE Stop: 05/11/18 23:01 Last Admin: 05/11/18 23:05 Dose: 10 units Insulin Aspart (Novolog) 10 unit SUBCUT ONETIME ONE Stop: 05/12/18 01:06 Last Admin: 05/12/18 01:09 Dose: 10 units Insulin Aspart (Novolog) 12 unit SUBCUT ONETIME ONE Stop: 05/14/18 08:57 Last Admin: 05/14/18 09:20 Dose: 10 units Morphine Sulfate (Morphine) 2 mg IVPUSH Q2H PRN PRN Reason: Pain (severe 7-10) Stop: 05/12/18 18:16 Pantoprazole Sodium (Protonix) 40 mg PO ACBREAKFAST [facility] Last Admin: 05/17/18 07:00 Dose: 40 mg Potassium Chloride (Klor-Con M20) 40 meq PO BID [facility] Last Admin: 05/17/18 08:06 Dose: 40 meq Sodium Phosphate (Neutra-Phos) 250 mg PO QID [facility] Last Admin: 05/24/18 06:25 Dose: 250 mg - Exam Quality Assessment: No: Supplemental Oxygen General: Alert HEENT: Pupils Equal. No: Mucous Membr. Moist/[place] (Dry) Neck: Supple Lungs: Clear to Auscultation, Normal Respiratory Effort Cardiovascular: Regular Rate, Regular Rhythm GI/Abdominal Exam: Normal Bowel Sounds, Soft, Non-Tender, No Distention (Female) Exam: Deferred Back Exam: Normal Inspection (Kyphosis) Extremities: Normal Inspection, Normal Range of Motion Skin: Warm, Dry, Intact Neurological: No New Focal Deficit Psy/Mental Status: Alert. No: Normal Affect - Problem List & Annotations (1) Dementia SNOMED Code(s): 28490828 Code(s): F03.90 - UNSPECIFIED DEMENTIA WITHOUT BEHAVIORAL DISTURBANCE Status: Chronic Priority: High Current Visit: Yes Qualifiers: Dementia type: Alzheimer's disease Alzheimer's disease onset: unspecified onset Dementia behavioral disturbance: without behavioral disturbance Qualified Code(s): G30.9 - Alzheimer's disease, unspecified; F02.80 - Dementia in other diseases classified elsewhere without behavioral disturbance (2) Failure to thrive SNOMED Code(s): 78571670 Code(s): RZE1346 - Status: Chronic Priority: High Current Visit: Yes Qualifiers: Failure to thrive age range: in adult Qualified Code(s): R62.7 - Adult failure to thrive (3) Dehydration SNOMED Code(s): 25172874 Code(s): E86.0 - DEHYDRATION Status: Resolved Priority: High Current Visit: Yes (4) DM type 2 (diabetes mellitus, type 2) SNOMED Code(s): 15279870 Code(s): E11.9 - TYPE 2 DIABETES MELLITUS WITHOUT COMPLICATIONS Status: Chronic Priority: High Current Visit: Yes Qualifiers: Diabetes mellitus intermediate insulin use: with intermediate use Diabetes mellitus complication status: with skin complications Diabetes mellitus complication detail: with other skin ulcer Qualified Code(s): E11.622 - Type 2 diabetes mellitus with other skin ulcer; Z79.4 - terminal carman (current) use of insulin (5) HTN (hypertension) SNOMED Code(s): 90973656 Code(s): I10 - ESSENTIAL (PRIMARY) HYPERTENSION Status: Chronic Priority : High Current Visit: Yes Qualifiers: Hypertension type: essential hypertension Qualified Code(s): I10 - Essential (primary) hypertension (6) UTI, Urinary tract infectious disease SNOMED Code(s): 51559604 Code(s): N39.0 - URINARY TRACT INFECTION, SITE NOT SPECIFIED Status: Resolved Priority: High Current Visit: Yes - Problem List Review Problem List Initiated/Reviewed/Updated: Yes - Plan Plan:: The patient is an 82-year-old lady is currently awaiting placement in [facility]. She is otherwise stable at this time. We'll continue on her current medications as prescribed. She is also on the diabetic diet as tolerated. We'll continue with Accu-Cheks and insulin as necessary.
[2018-05-29] MEDS: Lisinopril 5 MG Tab PO SCH (09:53)
[2018-05-29] MEDS: amLODIPine 5 MG Tab PO SCH (09:56)
[2018-05-29] MEDS: Docusate Sodium 100 MG Cap PO SCH (09:56)
[2018-05-29] MEDS: Enoxaparin 30 MG/0.3 ML Syringe SUBCUT SCH (09:56)
[2018-05-29] MEDS: Insulin Detemir 100 Units/ML 3 ML Pen SUBCUT SCH (20:42)
[2018-05-29] MEDS: Acetaminophen 325 MG Tab PO PRN (22:32)
--- NOTE | 2018-05-30 09:33 | PCM.PN ---
- General Info Date of Service: 05/30/18 Admission Dx/Problem (Free Text): Admission Diagnosis/Problem Admission Diagnosis/Problem Dehydration, dementia, behavioral issues, confusion Subjective Update: The patient is an 82-year-old lady who is currently awaiting transfer to [place] for [facility]. 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 She appears to be in no distress. She has been ambulating with assistance. Family is not available. Functional Status: Reports: Pain Controlled - Review of Systems General: Reports: No Symptoms HEENT: Reports: No Symptoms Pulmonary: Reports: No Symptoms Cardiovascular: Reports: No Symptoms Gastrointestinal: Reports: No Symptoms Genitourinary: Reports: No Symptoms Musculoskeletal: Reports: No Symptoms Skin: Reports: No Symptoms Neurological: Reports: No Symptoms Psychiatric: Reports: No Symptoms - Patient Data Vitals - Most Recent: Last Vital Signs Temp 37.1 C 05/29/18 19:51 Pulse 75 05/29/18 19:51 Resp 18 05/29/18 19:51 BP 172/79 H 05/29/18 19:51 Pulse Ox 97 05/29/18 19:51 Weight - Most Recent: 45.359 kg I&O - Last 24 Hours: Intake & Output 05/29/18 05/30/18 05/30/18 22:59 06:59 14:59 Intake Total 850 Output Total 1000 Balance -150 Lab Results Last 24 Hours: Laboratory Results - last 24 hr 05/29/18 05/29/18 05/29/18 Range/Units 06:43 12:04 17:03 POC Glucose 98 223 H 216 H (60-110) mg/dL Med Orders - Current: Current Medications Acetaminophen (Tylenol) 650 mg PO Q6H PRN PRN Reason: Pain (mild 1-3) Last Admin: 05/29/18 22:32 Dose: 650 mg Amlodipine Besylate (Norvasc) 5 mg PO DAILY [facility] Last Admin: 05/29/18 09:56 Dose: 5 mg Bisacodyl (Dulcolax) 10 mg PO DAILY PRN PRN Reason: Constipation Last Admin: 05/25/18 08:40 Dose: 10 mg Docusate Sodium (Colace) 100 mg PO DAILY [facility] Last Admin: 05/29/18 09:56 Dose: 100 mg Enoxaparin Sodium (Lovenox) 30 mg SUBCUT DAILY [facility] Last Admin: 05/29/18 09:56 Dose: 30 mg Insulin Aspart (Novolog) 0 unit SUBCUT TIDAC [facility]; Protocol Last Admin: 05/29/18 17:10 Dose: 6 units Insulin Detemir (Levemir) 10 unit SUBCUT BEDTIME [facility] Last Admin: 05/29/18 20:42 Dose: 10 units Lisinopril (Prinivil) 5 mg PO DAILY [facility] Last Admin: 05/29/18 09:53 Dose: 5 mg Lorazepam (Ativan) 1 mg PO BEDTIME PRN PRN Reason: Anxiety Last Admin: 05/18/18 02:47 Dose: 1 mg Ondansetron HCl (Zofran) 4 mg IVPUSH Q4H PRN PRN Reason: Nausea/Vomiting Sodium Chloride (Saline Flush) 10 ml FLUSH ASDIRECTED PRN PRN Reason: Keep Vein Open Last Admin: 05/11/18 15:42 Dose: 10 ml Sodium Chloride (Saline Flush) 2.5 ml FLUSH ASDIRECTED PRN PRN Reason: Keep Vein Open Last Admin: 05/11/18 15:42 Dose: 2.5 ml Sodium Chloride (Saline Flush) 10 ml FLUSH ASDIRECTED PRN PRN Reason: Keep Vein Open Sodium Chloride (Saline Flush) 2.5 ml FLUSH ASDIRECTED PRN PRN Reason: Keep Vein Open Discontinued Medications Enoxaparin Sodium (Lovenox) 30 mg SUBCUT Q24H [facility] Last Admin: 05/11/18 19:42 Dose: 30 mg Heparin Sodium (Porcine) (Heparin Sodium) 5,000 units SUBCUT Q8H [facility] Last Admin: 05/28/18 14:41 Dose: Not Given Sodium Chloride (Normal Saline) 1,000 mls @ 999 mls/hr IV .Bolus ONE Stop: 05/11/18 15:33 Last Admin: 05/11/18 15:15 Dose: 999 mls/hr Ciprofloxacin/Dextrose 400 mg/ (Premix) 200 mls @ 200 mls/hr IV Q24H [facility] Last Admin: 05/18/18 18:30 Dose: Not Given Sodium Chloride (Normal Saline) 1,000 mls @ 150 mls/hr IV ASDIRECTED [facility] Last Admin: 05/14/18 00:32 Dose: 150 mls/hr Insulin Aspart (Novolog) 15 unit SUBCUT ONETIME ONE Stop: 05/11/18 21:12 Last Admin: 05/11/18 21:26 Dose: 15 units Insulin Aspart (Novolog) 10 unit SUBCUT ONETIME ONE Stop: 05/11/18 23:01 Last Admin: 05/11/18 23:05 Dose: 10 units Insulin Aspart (Novolog) 10 unit SUBCUT ONETIME ONE Stop: 05/12/18 01:06 Last Admin: 05/12/18 01:09 Dose: 10 units Insulin Aspart (Novolog) 12 unit SUBCUT ONETIME ONE Stop: 05/14/18 08:57 Last Admin: 05/14/18 09:20 Dose: 10 units Morphine Sulfate (Morphine) 2 mg IVPUSH Q2H PRN PRN Reason: Pain (severe 7-10) Stop: 05/12/18 18:16 Pantoprazole Sodium (Protonix) 40 mg PO ACBREAKFAST [facility] Last Admin: 05/17/18 07:00 Dose: 40 mg Potassium Chloride (Klor-Con M20) 40 meq PO BID [facility] Last Admin: 05/17/18 08:06 Dose: 40 meq Sodium Phosphate (Neutra-Phos) 250 mg PO QID [facility] Last Admin: 05/24/18 06:25 Dose: 250 mg - Exam Quality Assessment: No: Supplemental Oxygen General: Alert, Oriented, Cooperative HEENT: Pupils Equal, Pupils Reactive, Mucous Membr. Moist/[place], Other (Poor [place]) Neck: Supple, Trachea Midline Lungs: Clear to Auscultation, Normal Respiratory Effort Cardiovascular: Regular Rate, Regular Rhythm GI/Abdominal Exam: Normal Bowel Sounds, Soft, Non-Tender, No Distention (Female) Exam: Deferred Back Exam: Full Range of Motion (Age-related changes). No: Normal Inspection ( Kyphosis) Extremities: Normal Inspection, No Pedal Edema Skin: Warm, Dry, Intact Neurological: No New Focal Deficit Psy/Mental Status: Alert, Normal Affect - Problem List & Annotations (1) Dementia SNOMED Code(s): 87226469 Code(s): F03.90 - UNSPECIFIED DEMENTIA WITHOUT BEHAVIORAL DISTURBANCE Status: Chronic Priority: High Current Visit: Yes Qualifiers: Dementia type: Alzheimer's disease Alzheimer's disease onset: unspecified onset Dementia behavioral disturbance: without behavioral disturbance Qualified Code(s): G30.9 - Alzheimer's disease, unspecified; F02.80 - Dementia in other diseases classified elsewhere without behavioral disturbance (2) Failure to thrive SNOMED Code(s): 49244155 Code(s): LVX8642 - Status: Chronic Priority: High Current Visit: Yes Qualifiers: Failure to thrive age range: in adult Qualified Code(s): R62.7 - Adult failure to thrive (3) Dehydration SNOMED Code(s): 41814918 Code(s): E86.0 - DEHYDRATION Status: Resolved Priority: High Current Visit: Yes (4) DM type 2 (diabetes mellitus, type 2) SNOMED Code(s): 95625091 Code(s): E11.9 - TYPE 2 DIABETES MELLITUS WITHOUT COMPLICATIONS Status: Chronic Priority: High Current Visit: Yes Qualifiers: 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: with local intermodal truck driver use Diabetes mellitus complication status: with skin complications Diabetes mellitus complication detail: with other skin ulcer Qualified Code(s): E11.622 - Type 2 diabetes mellitus with other skin ulcer; Z79.4 - director long term care (current) use of insulin (5) HTN (hypertension) SNOMED Code(s): 27203044 Code(s): I10 - ESSENTIAL (PRIMARY) HYPERTENSION Status: Chronic Priority : High Current Visit: Yes Qualifiers: Hypertension type: essential hypertension Qualified Code(s): I10 - Essential (primary) hypertension (6) UTI, Urinary tract infectious disease SNOMED Code(s): 62434011 Code(s): N39.0 - URINARY TRACT INFECTION, SITE NOT SPECIFIED Status: Resolved Priority: High Current Visit: Yes - Problem List Review Problem List Initiated/Reviewed/Updated: Yes - My Orders Last 24 Hours: My Active Orders 05/29/18 20:00 Vital Signs [RC] Q12H 05/30/18 05:11 CBC WITH AUTO DIFF [HEME] AM 05/30/18 11:00 BASIC METABOLIC PANEL,BMP [CHEM] AM - Plan Plan:: The patient is an 82-year-old lady is currently awaiting placement at a [facility]. She is stable. The patient will be continued on her current medications. She is also on a diabetic diet as tolerated. The patient will continue with Accu-Cheks before meals and at bedtime as well as insulin as necessary. She's been encouraged to continue ambulation.
[2018-05-30] MEDS: Enoxaparin 30 MG/0.3 ML Syringe SUBCUT SCH (10:07)
[2018-05-30] MEDS: Insulin Aspart 100 Units/ML 3 ML Pen SUBCUT SCH ×3 (10:07→17:46)
[2018-05-30] MEDS: Docusate Sodium 100 MG Cap PO SCH (10:07)
[2018-05-30] MEDS: amLODIPine 5 MG Tab PO SCH (10:08)
[2018-05-30] MEDS: Lisinopril 5 MG Tab PO SCH (10:08)
[2018-05-30] MEDS: Bisacodyl 5 MG Tab PO PRN (14:53)
[2018-05-30] MEDS: Insulin Detemir 100 Units/ML 3 ML Pen SUBCUT SCH (20:58)
[2018-05-30] MEDS: LORazepam 1 MG Tab PO PRN (22:25)
[2018-05-30] MEDS: Acetaminophen 325 MG Tab PO PRN (23:29)
[2018-05-31] MEDS: Insulin Aspart 100 Units/ML 3 ML Pen SUBCUT SCH (08:09)
--- NOTE | 2018-05-31 08:40 | PCM.DCSUM1 ---
<Ryan Roche Z - Last Filed: 05/31/18 09:51> Discharge Summary - Hospital Course HPI Initial Comments: Discharge Summary Date of admission: 05/11/18 Date of discharge: 05/31/18 Admitting diagnosis: #1. Dehydration, altered mental status secondary to acute kidney injury #2. Urinary tract infection #3. Hyperglycemia secondary to type 2 diabetes #4. Failure to thrive secondary to poor living conditions #5. Sacral decubitus ulcer #6. Hypertension Discharge diagnoses: #1. Failure to thrive secondary to poor living conditions now being discharged to [facility] #2. Acute kidney injury now resolved, urinary tract infection fully treated, type 2 diabetes under good control #3. Sacral decubitus ulcer improving/stable #4. Past medical history of hypertension, type 2 diabetes under good control Consultations: None Procedures: None Hospitalization course: Once admitted to the floor, patient was initially altered due to her dehydration status as well as a likely urinary tract infection. Patient was fluid resuscitated and was given antibiotic therapy for her urinary tract infection. Patient's status and overall clinical picture improved rapidly on initial date of admission. However, due to the language barrier there was a difficult time communicating with the patient, the patient initially would not speak to the interpreters. However as the admission progressed the patient was responsive and communicative through physical gestures. 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 This diagnosis was further strengthened by the fact that the patient was found in her own urine and feces when initially brought in by the EMS and thus had failure to thrive secondary to age onset dementia. Case management was consult today and try to find an placement initially with [facility] here in [facility]. However after extensive discussions with the halfway facility the halfway refused to accept the patient despite the fact that the patient's was also in the halfway for over 15 years and the patient's family lived in [place]. Case management then spoke with the family was still indicated that they really would like to pursue a halfway and [facility] was contacted and after assessing the patient accepted her into their facility for long-term care. Most of this patient's stay was primarily lengthened due to disposition to the halfway. The patient was regularly ambulated walked, her type 2 diabetes and hypertension were controlled medications, her sacral decubiti ulcer was managed by physical therapy and wound care as well as nursing staff. Patient remained stable throughout. Patient was subsequently discharged on 05/31/18 to [facility] for long-term care/placement. Patient was discharged home on continuation of her home medication as well as a order for physical therapy at the halfway. Disposition on discharge: [facility] Condition on discharge: Stable Discharge medications: Continuation of home medication Diagnosis: Stroke: No - Discharge Data Discharge Date: 05/31/18 Discharge Disposition: DC/Tfer to SNF 03 Condition: Stable - Discharge Diagnosis/Problem(s) (1) Failure to thrive SNOMED Code(s): 03967073 ICD Code: [id number] - Status: Chronic Priority: High Current Visit: Yes Qualifiers: Failure to thrive age range: in adult Qualified Code(s): R62.7 - Adult failure to thrive (2) Dehydration SNOMED Code(s): 95184967 ICD Code: E86.0 - DEHYDRATION Status: Resolved Priority: High Current Visit: Yes (3) Unable to ambulate SNOMED Code(s): 484582436 ICD Code: R26.2 - DIFFICULTY IN WALKING, NOT ELSEWHERE CLASSIFIED Status: Acute Current Visit: No (4) Uncontrolled diabetes mellitus SNOMED Code(s): 61124181, 955855465 ICD Code: E11.65 - TYPE 2 DIABETES MELLITUS WITH HYPERGLYCEMIA Status: Acute Current Visit: No (5) Sacral decubitus ulcer SNOMED Code(s): 751209148 ICD Code: L89.159 - PRESSURE ULCER OF SACRAL REGION, UNSPECIFIED STAGE Status: Chronic Current Visit: No Qualifiers: Pressure injury stage: stage 1 Qualified Code(s): L89.151 - Pressure ulcer of sacral region, stage 1 (6) HTN (hypertension) SNOMED Code(s): 60587538 ICD Code: I10 - ESSENTIAL (PRIMARY) HYPERTENSION Status: Chronic Priority : High Current Visit: Yes Qualifiers: Hypertension type: essential hypertension Qualified Code(s): I10 - Essential (primary) hypertension (7) DM type 2 (diabetes mellitus, type 2) SNOMED Code(s): 14497525 ICD Code: E11.9 - TYPE 2 DIABETES MELLITUS WITHOUT COMPLICATIONS Status: Chronic Priority: High Current Visit: Yes Qualifiers: Diabetes mellitus exterminator helper insulin use: with exterminator helper use Diabetes mellitus complication status: with skin complications Diabetes mellitus complication detail: with other skin ulcer Qualified Code(s): E11.622 - Type 2 diabetes mellitus with other skin ulcer; 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 - Patient Summary/Data Consults: Consultations 05/11/18 18:15 Consult to Case Management/Technical Information Specialist [CONS] Routine - Patient Instructions Diet: Diabetic Diet Activity: As Tolerated - Discharge Plan *PRESCRIPTION DRUG MONITORING PROGRAM REVIEWED*: No *COPY OF PRESCRIPTION DRUG MONITORING REPORT IN PATIENT SVEN: No Home Medications: Home Meds Gabapentin [Neurontin] 300 mg PO BEDTIME 11/14/15 [History] Insulin Glargine,Hum.Rec.Anlog [Lantus Solostar] 32 unit SQ DAILY 11/14/15 [ History] Insulin Lispro [Humalog] 10 units SUBCUT TIDMEALS 11/14/15 [History] SitaGLIPtin [Januvia] 50 mg PO DAILY 11/14/15 [History] amLODIPine [Norvasc] 10 mg PO DAILY 11/14/15 [History] atorvaSTATin [Lipitor] 20 mg PO BEDTIME 11/14/15 [History] Ferrous Sulfate [Iron] 325 mg PO DAILY 02/01/18 [History] LORazepam 1 mg PO BID PRN 02/01/18 [History] Lisinopril 5 mg PO DAILY 02/01/18 [History] Nateglinide 120 mg PO BIDAC 02/01/18 [History] Omeprazole 40 mg PO BEDTIME 02/01/18 [History] Furosemide 20 mg PO DAILY 05/12/18 [History] Other Amb Orders: PT Evaluation and Treatment [CONS] Location: None Selected Oxygen Therapy Mode: Room Air Patient Handouts: Type 2 Diabetes Mellitus, Diagnosis, Adult, Dehydration, Adult, Iwsh-iy-Neut, Urinary Tract Infection, Adult, Hypertension, [id number] - Discharge Summary/Plan Comment DC Time >30 min.: No - Patient Data Vitals - Most Recent: Last Vital Signs Temp 36.3 C 05/31/18 08:00 Pulse 78 05/31/18 08:00 Resp 18 05/31/18 08:00 BP 172/76 H 05/31/18 08:00 Pulse Ox 100 05/31/18 08:00 Weight - Most Recent: 45.359 kg I&O - Last 24 hours: Intake & Output 05/30/18 05/31/18 05/31/18 22:59 06:59 14:59 Intake Total 1040 500 Output Total 1250 600 Balance -210 -100 Lab Results - Last 24 hrs: Laboratory Results - last 24 hr 05/29/18 05/30/18 05/30/18 Range/Units 20:39 06:17 06:17 WBC 8.54 (4.0-11.0) K/uL RBC 2.99 L (4.30-5.90) M/uL Hgb 9.0 L (12.0-16.0) g/dL Hct 28.1 L (36.0-46.0) % MCV 94.0 (80.0-98.0) fL MCH 30.1 (27.0-32.0) pg MCHC 32.0 (31.0-37.0) g/dL RDW Std Deviation 45.5 (28.0-62.0) fl RDW Coeff of Dipti 13 (11.0-15.0) % Plt Count 342 (150-400) K/uL MPV 8.80 (7.40-12.00) fL Neut % (Auto) 69.3 (48.0-80.0) % Lymph % (Auto) 18.9 (16.0-40.0) % Pender % (Auto) 9.6 (0.0-15.0) % Eos % (Auto) 1.8 (0.0-7.0) % Baso % (Auto) 0.4 (0.0-1.5) % Neut # (Auto) 5.9 H (1.4-5.7) K/uL Lymph # (Auto) 1.6 (0.6-2.4) K/uL Pender # (Auto) 0.8 (0.0-0.8) K/uL Eos # (Auto) 0.2 (0.0-0.7) K/uL Baso # (Auto) 0.0 (0.0-0.1) K/uL Nucleated RBC % 0.0 /100WBC Nucleated RBCs # 0 K/uL Sodium 140 (136-145) mmol/L Potassium 4.2 (3.5-5.1) mmol/L Chloride 104 (98-107) mmol/L Carbon Dioxide 29.3 (21.0-32.0) mmol/L BUN 20 H (7.0-18.0) mg/dL Creatinine 1.4 H (0.6-1.0) mg/dL Est Cr Clr Drug Dosing 21.80 mL/min Estimated GFR (MDRD) 35.9 ml/min Glucose 159 H (74-106) mg/dL POC Glucose 270 H (60-110) mg/dL Calcium 8.5 (8.5-10.1) mg/dL 05/30/18 05/30/18 05/30/18 Range/Units 06:20 11:34 16:39 WBC (4.0-11.0) K/uL RBC (4.30-5.90) M/uL Hgb (12.0-16.0) g/dL Hct (36.0-46.0) % MCV (80.0-98.0) fL MCH (27.0-32.0) pg MCHC (31.0-37.0) g/dL RDW Std Deviation (28.0-62.0) fl RDW Coeff of Dipti (11.0-15.0) % Plt Count (150-400) K/uL MPV (7.40-12.00) fL Neut % (Auto) (48.0-80.0) % Lymph % (Auto) (16.0-40.0) % Pender % (Auto) (0.0-15.0) % Eos % (Auto) (0.0-7.0) % Baso % (Auto) (0.0-1.5) % Neut # (Auto) (1.4-5.7) K/uL Lymph # (Auto) (0.6-2.4) K/uL Pender # (Auto) (0.0-0.8) K/uL Eos # (Auto) (0.0-0.7) K/uL Baso # (Auto) (0.0-0.1) K/uL Nucleated RBC % /100WBC Nucleated RBCs # K/uL Sodium (136-145) mmol/L Potassium (3.5-5.1) mmol/L Chloride (98-107) mmol/L Carbon Dioxide (21.0-32.0) mmol/L BUN (7.0-18.0) mg/dL Creatinine (0.6-1.0) mg/dL Est Cr Clr Drug Dosing mL/min Estimated GFR (MDRD) ml/min Glucose (74-106) mg/dL POC Glucose 152 H 195 H 293 H (60-110) mg/dL Calcium (8.5-10.1) mg/dL 05/30/18 05/31/18 05/31/18 Range/Units 20:40 06:22 06:23 WBC 9.79 (4.0-11.0) K/uL RBC 3.12 L (4.30-5.90) M/uL Hgb 9.5 L (12.0-16.0) g/dL Hct 29.3 L (36.0-46.0) % MCV 93.9 (80.0-98.0) fL MCH 30.4 (27.0-32.0) pg MCHC 32.4 (31.0-37.0) g/dL RDW Std Deviation 45.8 (28.0-62.0) fl RDW Coeff of Dipti 14 (11.0-15.0) % Plt Count 413 H (150-400) K/uL MPV 8.70 (7.40-12.00) fL Neut % (Auto) 59.8 (48.0-80.0) % Lymph % (Auto) 27.4 (16.0-40.0) % Pender % (Auto) 10.0 (0.0-15.0) % Eos % (Auto) 2.6 (0.0-7.0) % Baso % (Auto) 0.2 (0.0-1.5) % Neut # (Auto) 5.9 H (1.4-5.7) K/uL Lymph # (Auto) 2.7 H (0.6-2.4) K/uL Pender # (Auto) 1.0 H (0.0-0.8) K/uL Eos # (Auto) 0.3 (0.0-0.7) K/uL Baso # (Auto) 0.0 (0.0-0.1) K/uL Nucleated RBC % 0.0 /100WBC Nucleated RBCs # 0 K/uL Sodium (136-145) mmol/L Potassium (3.5-5.1) mmol/L Chloride (98-107) mmol/L Carbon Dioxide (21.0-32.0) mmol/L BUN (7.0-18.0) mg/dL Creatinine (0.6-1.0) mg/dL Est Cr Clr Drug Dosing mL/min Estimated GFR (MDRD) ml/min Glucose (74-106) mg/dL POC Glucose 242 H 67 (60-110) mg/dL Calcium (8.5-10.1) mg/dL 05/31/18 Range/Units 06:23 WBC (4.0-11.0) K/uL RBC (4.30-5.90) M/uL Hgb (12.0-16.0) g/dL Hct (36.0-46.0) % MCV (80.0-98.0) fL MCH (27.0-32.0) pg MCHC (31.0-37.0) g/dL RDW Std Deviation (28.0-62.0) fl RDW Coeff of Dipti (11.0-15.0) % Plt Count (150-400) K/uL MPV (7.40-12.00) fL Neut % (Auto) (48.0-80.0) % Lymph % (Auto) (16.0-40.0) % Pender % (Auto) (0.0-15.0) % Eos % (Auto) (0.0-7.0) % Baso % (Auto) (0.0-1.5) % Neut # (Auto) (1.4-5.7) K/uL Lymph # (Auto) (0.6-2.4) K/uL Pender # (Auto) (0.0-0.8) K/uL Eos # (Auto) (0.0-0.7) K/uL Baso # (Auto) (0.0-0.1) K/uL Nucleated RBC % /100WBC Nucleated RBCs # K/uL Sodium 140 (136-145) mmol/L Potassium 3.8 (3.5-5.1) mmol/L Chloride 104 (98-107) mmol/L Carbon Dioxide 27.0 (21.0-32.0) mmol/L BUN 20 H (7.0-18.0) mg/dL Creatinine 1.3 H (0.6-1.0) mg/dL Est Cr Clr Drug Dosing 23.48 mL/min Estimated GFR (MDRD) 39.1 ml/min Glucose 76 (74-106) mg/dL POC Glucose (60-110) mg/dL Calcium 8.7 (8.5-10.1) mg/dL Med Orders - Current: Current Medications Acetaminophen (Tylenol) 650 mg PO Q6H PRN PRN Reason: Pain (mild 1-3) Last Admin: 05/30/18 23:29 Dose: 650 mg Amlodipine Besylate (Norvasc) 5 mg PO DAILY [facility] Last Admin: 05/30/18 10:08 Dose: Not Given Bisacodyl (Dulcolax) 10 mg PO DAILY PRN PRN Reason: Constipation Last Admin: 05/30/18 14:53 Dose: 10 mg Docusate Sodium (Colace) 100 mg PO DAILY [facility] Last Admin: 05/30/18 10:07 Dose: Not Given Enoxaparin Sodium (Lovenox) 30 mg SUBCUT DAILY [facility] Last Admin: 05/30/18 10:07 Dose: Not Given Insulin Aspart (Novolog) 0 unit SUBCUT TIDAC [facility]; Protocol Last Admin: 05/31/18 08:09 Dose: Not Given Insulin Detemir (Levemir) 10 unit SUBCUT BEDTIME [facility] Last Admin: 05/30/18 20:58 Dose: 10 units Lisinopril (Prinivil) 5 mg PO DAILY [facility] Last Admin: 05/30/18 10:08 Dose: Not Given Lorazepam (Ativan) 1 mg PO BEDTIME PRN PRN Reason: Anxiety Last Admin: 05/30/18 22:25 Dose: 1 mg Ondansetron HCl (Zofran) 4 mg IVPUSH Q4H PRN PRN Reason: Nausea/Vomiting Sodium Chloride (Saline Flush) 10 ml FLUSH ASDIRECTED PRN PRN Reason: Keep Vein Open Last Admin: 05/11/18 15:42 Dose: 10 ml Sodium Chloride (Saline Flush) 2.5 ml FLUSH ASDIRECTED PRN PRN Reason: Keep Vein Open Last Admin: 05/11/18 15:42 Dose: 2.5 ml Sodium Chloride (Saline Flush) 10 ml FLUSH ASDIRECTED PRN PRN Reason: Keep Vein Open Sodium Chloride (Saline Flush) 2.5 ml FLUSH ASDIRECTED PRN PRN Reason: Keep Vein Open Discontinued Medications Enoxaparin Sodium (Lovenox) 30 mg SUBCUT Q24H [facility] Last Admin: 05/11/18 19:42 Dose: 30 mg Heparin Sodium (Porcine) (Heparin Sodium) 5,000 units SUBCUT Q8H [facility] Last Admin: 05/28/18 14:41 Dose: Not Given Sodium Chloride (Normal Saline) 1,000 mls @ 999 mls/hr IV .Bolus ONE Stop: 05/11/18 15:33 Last Admin: 05/11/18 15:15 Dose: 999 mls/hr Ciprofloxacin/Dextrose 400 mg/ (Premix) 200 mls @ 200 mls/hr IV Q24H [facility] Last Admin: 05/18/18 18:30 Dose: Not Given Sodium Chloride (Normal Saline) 1,000 mls @ 150 mls/hr IV ASDIRECTED [facility] Last Admin: 05/14/18 00:32 Dose: 150 mls/hr Insulin Aspart (Novolog) 15 unit SUBCUT ONETIME ONE Stop: 05/11/18 21:12 Last Admin: 05/11/18 21:26 Dose: 15 units Insulin Aspart (Novolog) 10 unit SUBCUT ONETIME ONE Stop: 05/11/18 23:01 Last Admin: 05/11/18 23:05 Dose: 10 units Insulin Aspart (Novolog) 10 unit SUBCUT ONETIME ONE Stop: 05/12/18 01:06 Last Admin: 05/12/18 01:09 Dose: 10 units Insulin Aspart (Novolog) 12 unit SUBCUT ONETIME ONE Stop: 05/14/18 08:57 Last Admin: 05/14/18 09:20 Dose: 10 units Morphine Sulfate (Morphine) 2 mg IVPUSH Q2H PRN PRN Reason: Pain (severe 7-10) Stop: 05/12/18 18:16 Pantoprazole Sodium (Protonix) 40 mg PO ACBREAKFAST [facility] Last Admin: 05/17/18 07:00 Dose: 40 mg Potassium Chloride (Klor-Con M20) 40 meq PO BID [facility] Last Admin: 05/17/18 08:06 Dose: 40 meq Sodium Phosphate (Neutra-Phos) 250 mg PO QID [facility] Last Admin: 05/24/18 06:25 Dose: 250 mg <Rohan Salguero - Last Filed: 05/31/18 11:23> Discharge Summary - Hospital Course HPI Initial Comments: I have examined the patient independently of medical device sales consultant, Dr. Roche, and have discussed the case with him. I have reviewed and agree with the findings and plan of care as outlined for this patient. Please see orders. Patient will be transferred to SNF today. - Discharge Diagnosis/Problem(s) (1) Dementia SNOMED Code(s): 71585821 ICD Code: F03.90 - UNSPECIFIED DEMENTIA WITHOUT BEHAVIORAL DISTURBANCE Status: Chronic Priority: High Current Visit: Yes Qualifiers: Dementia type: Alzheimer's disease Alzheimer's disease onset: unspecified onset Dementia behavioral disturbance: without behavioral disturbance Qualified Code(s): G30.9 - Alzheimer's disease, unspecified; F02.80 - Dementia in other diseases classified elsewhere without behavioral disturbance (2) Failure to thrive SNOMED Code(s): 07285302 ICD Code: [id number] - Status: Chronic Priority: High Current Visit: Yes Qualifiers: Failure to thrive age range: in adult Qualified Code(s): R62.7 - Adult failure to thrive (3) Dehydration SNOMED Code(s): 93168541 ICD Code: E86.0 - DEHYDRATION Status: Resolved Priority: High Current Visit: Yes (4) DM type 2 (diabetes mellitus, type 2) SNOMED Code(s): 94823352 ICD Code: E11.9 - TYPE 2 DIABETES MELLITUS WITHOUT COMPLICATIONS Status: Chronic Priority: High Current Visit: Yes Qualifiers: Diabetes mellitus exterminator helper insulin use: with exterminator helper use Diabetes mellitus complication status: with skin complications Diabetes mellitus complication detail: with other skin ulcer Qualified Code(s): E11.622 - Type 2 diabetes mellitus with other skin ulcer; Z79.4 - longterm (current) use of insulin (5) HTN (hypertension) SNOMED Code(s): 88732391 ICD Code: I10 - ESSENTIAL (PRIMARY) HYPERTENSION Status: Chronic Priority : High Current Visit: Yes Qualifiers: Hypertension type: essential hypertension Qualified Code(s): I10 - Essential (primary) hypertension (6) UTI, Urinary tract infectious disease SNOMED Code(s): 01272049 ICD Code: N39.0 - URINARY TRACT INFECTION, SITE NOT SPECIFIED Status: Resolved Priority: High Current Visit: Yes - Patient Summary/Data Consults: Consultations 05/11/18 18:15 Consult to Case Management/Technical Information Specialist [CONS] Routine - Patient Data Vitals - Most Recent: Last Vital Signs Temp 36.3 C 05/31/18 08:00 Pulse 78 05/31/18 08:00 Resp 18 05/31/18 08:00 BP 170/79 H 05/31/18 08:52 Pulse Ox 100 05/31/18 08:00 I&O - Last 24 hours: Intake & Output 05/30/18 05/31/18 05/31/18 22:59 06:59 14:59 Intake Total 1040 500 Output Total 1250 600 Balance -210 -100 Lab Results - Last 24 hrs: Laboratory Results - last 24 hr 05/29/18 05/30/18 05/30/18 Range/Units 20:39 06:20 11:34 WBC (4.0-11.0) K/uL RBC (4.30-5.90) M/uL Hgb (12.0-16.0) g/dL Hct (36.0-46.0) % MCV (80.0-98.0) fL MCH (27.0-32.0) pg MCHC (31.0-37.0) g/dL RDW Std Deviation (28.0-62.0) fl RDW Coeff of Dipti (11.0-15.0) % Plt Count (150-400) K/uL MPV (7.40-12.00) fL Neut % (Auto) (48.0-80.0) % Lymph % (Auto) (16.0-40.0) % Pender % (Auto) (0.0-15.0) % Eos % (Auto) (0.0-7.0) % Baso % (Auto) (0.0-1.5) % Neut # (Auto) (1.4-5.7) K/uL Lymph # (Auto) (0.6-2.4) K/uL Pender # (Auto) (0.0-0.8) K/uL Eos # (Auto) (0.0-0.7) K/uL Baso # (Auto) (0.0-0.1) K/uL Nucleated RBC % /100WBC Nucleated RBCs # K/uL Sodium (136-145) mmol/L Potassium (3.5-5.1) mmol/L Chloride (98-107) mmol/L Carbon Dioxide (21.0-32.0) mmol/L BUN (7.0-18.0) mg/dL Creatinine (0.6-1.0) mg/dL Est Cr Clr Drug Dosing mL/min Estimated GFR (MDRD) ml/min Glucose (74-106) mg/dL POC Glucose 270 H 152 H 195 H (60-110) mg/dL Calcium (8.5-10.1) mg/dL 05/30/18 05/30/18 05/31/18 Range/Units 16:39 20:40 06:22 WBC (4.0-11.0) K/uL RBC (4.30-5.90) M/uL Hgb (12.0-16.0) g/dL Hct (36.0-46.0) % MCV (80.0-98.0) fL MCH (27.0-32.0) pg MCHC (31.0-37.0) g/dL RDW Std Deviation (28.0-62.0) fl RDW Coeff of Dipti (11.0-15.0) % Plt Count (150-400) K/uL MPV (7.40-12.00) fL Neut % (Auto) (48.0-80.0) % Lymph % (Auto) (16.0-40.0) % Pender % (Auto) (0.0-15.0) % Eos % (Auto) (0.0-7.0) % Baso % (Auto) (0.0-1.5) % Neut # (Auto) (1.4-5.7) K/uL Lymph # (Auto) (0.6-2.4) K/uL Pender # (Auto) (0.0-0.8) K/uL Eos # (Auto) (0.0-0.7) K/uL Baso # (Auto) (0.0-0.1) K/uL Nucleated RBC % /100WBC Nucleated RBCs # K/uL Sodium (136-145) mmol/L Potassium (3.5-5.1) mmol/L Chloride (98-107) mmol/L Carbon Dioxide (21.0-32.0) mmol/L BUN (7.0-18.0) mg/dL Creatinine (0.6-1.0) mg/dL Est Cr Clr Drug Dosing mL/min Estimated GFR (MDRD) ml/min Glucose (74-106) mg/dL POC Glucose 293 H 242 H 67 (60-110) mg/dL Calcium (8.5-10.1) mg/dL 05/31/18 05/31/18 Range/Units 06:23 06:23 WBC 9.79 (4.0-11.0) K/uL RBC 3.12 L (4.30-5.90) M/uL Hgb 9.5 L (12.0-16.0) g/dL Hct 29.3 L (36.0-46.0) % MCV 93.9 (80.0-98.0) fL MCH 30.4 (27.0-32.0) pg MCHC 32.4 (31.0-37.0) g/dL RDW Std Deviation 45.8 (28.0-62.0) fl RDW Coeff of Dipti 14 (11.0-15.0) % Plt Count 413 H (150-400) K/uL MPV 8.70 (7.40-12.00) fL Neut % (Auto) 59.8 (48.0-80.0) % Lymph % (Auto) 27.4 (16.0-40.0) % Pender % (Auto) 10.0 (0.0-15.0) % Eos % (Auto) 2.6 (0.0-7.0) % Baso % (Auto) 0.2 (0.0-1.5) % Neut # (Auto) 5.9 H (1.4-5.7) K/uL Lymph # (Auto) 2.7 H (0.6-2.4) K/uL Pender # (Auto) 1.0 H (0.0-0.8) K/uL Eos # (Auto) 0.3 (0.0-0.7) K/uL Baso # (Auto) 0.0 (0.0-0.1) K/uL Nucleated RBC % 0.0 /100WBC Nucleated RBCs # 0 K/uL Sodium 140 (136-145) mmol/L Potassium 3.8 (3.5-5.1) mmol/L Chloride 104 (98-107) mmol/L Carbon Dioxide 27.0 (21.0-32.0) mmol/L BUN 20 H (7.0-18.0) mg/dL Creatinine 1.3 H (0.6-1.0) mg/dL Est Cr Clr Drug Dosing 23.48 mL/min Estimated GFR (MDRD) 39.1 ml/min Glucose 76 (74-106) mg/dL POC Glucose (60-110) mg/dL Calcium 8.7 (8.5-10.1) mg/dL Med Orders - Current: Current Medications Acetaminophen (Tylenol) 650 mg PO Q6H PRN PRN Reason: Pain (mild 1-3) Last Admin: 05/30/18 23:29 Dose: 650 mg Amlodipine Besylate (Norvasc) 5 mg PO DAILY [facility] Last Admin: 05/31/18 08:51 Dose: 5 mg Bisacodyl (Dulcolax) 10 mg PO DAILY PRN PRN Reason: Constipation Last Admin: 05/30/18 14:53 Dose: 10 mg Docusate Sodium (Colace) 100 mg PO DAILY [facility] Last Admin: 05/31/18 08:51 Dose: 100 mg Enoxaparin Sodium (Lovenox) 30 mg SUBCUT DAILY [facility] Last Admin: 05/31/18 08:52 Dose: 30 mg Insulin Aspart (Novolog) 0 unit SUBCUT TIDAC [facility]; Protocol Last Admin: 05/31/18 08:09 Dose: Not Given Insulin Detemir (Levemir) 10 unit SUBCUT BEDTIME [facility] Last Admin: 05/30/18 20:58 Dose: 10 units Lisinopril (Prinivil) 5 mg PO DAILY [facility] Last Admin: 05/31/18 08:52 Dose: 5 mg Lorazepam (Ativan) 1 mg PO BEDTIME PRN PRN Reason: Anxiety Last Admin: 05/30/18 22:25 Dose: 1 mg Ondansetron HCl (Zofran) 4 mg IVPUSH Q4H PRN PRN Reason: Nausea/Vomiting Sodium Chloride (Saline Flush) 10 ml FLUSH ASDIRECTED PRN PRN Reason: Keep Vein Open Last Admin: 05/11/18 15:42 Dose: 10 ml Sodium Chloride (Saline Flush) 2.5 ml FLUSH ASDIRECTED PRN PRN Reason: Keep Vein Open Last Admin: 05/11/18 15:42 Dose: 2.5 ml Sodium Chloride (Saline Flush) 10 ml FLUSH ASDIRECTED PRN PRN Reason: Keep Vein Open Sodium Chloride (Saline Flush) 2.5 ml FLUSH ASDIRECTED PRN PRN Reason: Keep Vein Open Discontinued Medications Enoxaparin Sodium (Lovenox) 30 mg SUBCUT Q24H [facility] Last Admin: 05/11/18 19:42 Dose: 30 mg Heparin Sodium (Porcine) (Heparin Sodium) 5,000 units SUBCUT Q8H [facility] Last Admin: 05/28/18 14:41 Dose: Not Given Sodium Chloride (Normal Saline) 1,000 mls @ 999 mls/hr IV .Bolus ONE Stop: 05/11/18 15:33 Last Admin: 05/11/18 15:15 Dose: 999 mls/hr Ciprofloxacin/Dextrose 400 mg/ (Premix) 200 mls @ 200 mls/hr IV Q24H [facility] Last Admin: 05/18/18 18:30 Dose: Not Given Sodium Chloride (Normal Saline) 1,000 mls @ 150 mls/hr IV ASDIRECTED [facility] Last Admin: 05/14/18 00:32 Dose: 150 mls/hr Insulin Aspart (Novolog) 15 unit SUBCUT ONETIME ONE Stop: 05/11/18 21:12 Last Admin: 05/11/18 21:26 Dose: 15 units Insulin Aspart (Novolog) 10 unit SUBCUT ONETIME ONE Stop: 05/11/18 23:01 Last Admin: 05/11/18 23:05 Dose: 10 units Insulin Aspart (Novolog) 10 unit SUBCUT ONETIME ONE Stop: 05/12/18 01:06 Last Admin: 05/12/18 01:09 Dose: 10 units Insulin Aspart (Novolog) 12 unit SUBCUT ONETIME ONE Stop: 05/14/18 08:57 Last Admin: 05/14/18 09:20 Dose: 10 units Morphine Sulfate (Morphine) 2 mg IVPUSH Q2H PRN PRN Reason: Pain (severe 7-10) Stop: 05/12/18 18:16 Pantoprazole Sodium (Protonix) 40 mg PO ACBREAKFAST [facility] Last Admin: 05/17/18 07:00 Dose: 40 mg Potassium Chloride (Klor-Con M20) 40 meq PO BID [facility] Last Admin: 05/17/18 08:06 Dose: 40 meq Sodium Phosphate (Neutra-Phos) 250 mg PO QID [facility] Last Admin: 05/24/18 06:25 Dose: 250 mg
[2018-05-31] MEDS: Docusate Sodium 100 MG Cap PO SCH (08:51)
[2018-05-31] MEDS: amLODIPine 5 MG Tab PO SCH (08:51)
[2018-05-31 08:52] VITALS: BP 170/79
[2018-05-31] MEDS: Enoxaparin 30 MG/0.3 ML Syringe SUBCUT SCH (08:52)
[2018-05-31] MEDS: Lisinopril 5 MG Tab PO SCH (08:52)
== END 2018-05-31 11:00 | DRG 641 ==
LOC: MW.ED 14:28 → MW.MS 16:37
PROVIDERS: ADMIT Internal Medicine; ATTEND Internal Medicine
DX: E86.0 Dehydration (principal); N39.0 Urinary tract infection, site not specified; N17.9 Acute kidney failure, unspecified; E78.00 Pure hypercholesterolemia, unspecified; E11.9 Type 2 diabetes mellitus without complications; R62.7 Adult failure to thrive; I10 Essential (primary) hypertension; E11.65 Type 2 diabetes mellitus with hyperglycemia; Z79.4 Long term (current) use of insulin; L89.151 Pressure ulcer of sacral region, stage 1; E11.622 Type 2 diabetes mellitus with other skin ulcer; Z60.3 Acculturation difficulty; F03.90 Unspecified dementia, unspecified severity, without behavioral disturbance, psychotic disturbance, mood disturbance, and anxiety; E87.5 Hyperkalemia; R32 Unspecified urinary incontinence; R15.9 Full incontinence of feces; R26.2 Difficulty in walking, not elsewhere classified; Z59.1 Inadequate housing; Z79.899 Other long term (current) drug therapy
CPT/HCPCS: 36415; 71045; 80053; 81001; 82550; 85025; 87086; 96360; 96361; 99285; J7040 ×2; 80048; 82962; 83735; 84100; 99283; A9270-GY; J0744; J1644; J1650; J1815-GY